=== PATIENT | female | born 1955 | race African-American/Black ===

== ENCOUNTER 2017-09-06 11:07 | Emergency (ER) | payer MEDICARE, OTHER ==
[~2017-09-06] VITALS: Ht 185.4 cm; Wt 117.9 kg
[~2017-09-06 11:07] MED LIST: ALBUTEROL SULF8.5 GM INH; ASPIR-LOW81 MG ORAL; AZITHROMYCIN250 MG PO; CRESTOR10 M1 ORAL; GABAPENTIN100 MG ORAL; IBUPROFEN600 M1 PO; IBUPROFEN600 MG ORAL; JANUVIA25 MG ORAL; LEVAQUIN750 MG ORAL; LORTAB 10-5001 EACH ORAL; LOVASTATIN10 MG PO; MACROBID 100 M100 MG PO; MACROBID100 MG ORAL; NORCO 5-325 TA1 EACH ORAL; NOVOLOG MI100 UNIT/3 SQ; PENICILLIN V P500 MG PO; TRAMADOL HCL50 MG ORAL; UNOBMED
[2017-09-06 11:28] VITALS: BP 122/63
[2017-09-06] MEDS ORDERED: Morphine Sulfate 4mg/ml Inj IVP ONE (11:45)
[2017-09-06] MEDS ORDERED: Solu-MEDROL 125mg Inj IVP ONE (11:45)
[2017-09-06] MEDS ORDERED: Albuterol ud Inhalation HHN ONE (11:45)
[2017-09-06] MEDS ORDERED: Ipratropium 0.02% Inh Soln 2.5ml UD HHN ONE (11:45)
[2017-09-06 12:09] LABS: APPEARANCE,URINE SLIGHTLY CLOUDY; BILIRUBIN, URINE NEGATIVE (NEGATIVE); GLUCOSE, URINE (UA) NEGATIVE (NEGATIVE); KETONES,URINE NEGATIVE (NEGATIVE); LEUKOCYTE ESTERASE ,URINE NEGATIVE (NEGATIVE); NITRITE,URINE NEGATIVE (NEGATIVE); PH,URINE 5 (4.5-8.0); PROTEIN,URINE NEGATIVE (NEGATIVE); UROBILINOGEN,URINE NORMAL MG/DL (0.0-1.0)
[2017-09-06 12:10] LABS: COLOR,URINE YELLOW
[2017-09-06 12:12] LABS: BASOPHILS % (AUTO) 0.9 % (0.0-2.0); EOSINOPHILS % (AUTO) 4.3 % (0.0-3.0); HEMOGLOBIN 12.6 G/DL (12.0-16.0); LYMPHOCYTES % (AUTO) 39.4 % (20.0-45.0); MEAN CORPUSCULAR VOLUME 86 FL (80-99); MONOCYTES % (AUTO) 8.2 % (1.0-10.0); NEUTROPHILS % (AUTO) 47.2 % (45.0-75.0); PLATELET COUNT 283 K/UL (150-450); RED BLOOD COUNT 4.17 M/UL (4.20-5.40); RED CELL DISTRIBUTION WIDTH 12.5 % (11.6-14.8); WHITE BLOOD COUNT 6.4 K/UL (4.8-10.8)
[2017-09-06 12:20] LABS: INR 0.9 (0.9-1.1)
[2017-09-06 12:25] LABS: ANION GAP 9 mmol/L (5-15); BLOOD UREA NITROGEN 13 mg/dL (7-18); CARBON DIOXIDE 26 MMOL/L (21-32); CHLORIDE 104 MMOL/L (98-107); CREATININE 0.9 MG/DL (0.55-1.30); POTASSIUM 3.9 MMOL/L (3.5-5.1); SODIUM 139 MMOL/L (136-145)
[2017-09-06 12:35] LABS: ALANINE AMINOTRANSFERASE 25 U/L (12-78); ALBUMIN 4.2 G/DL (3.4-5.0); ALBUMIN/GLOBULIN RATIO 1.3 (1.0-2.7); ALKALINE PHOSPHATASE 70 U/L (46-116); ASPARTATE AMINO TRANSFERASE 23 U/L (15-37); BILIRUBIN,TOTAL 0.5 MG/DL (0.2-1.0); CREATINE KINASE 306 U/L (26-308)
[2017-09-06 14:13] VITALS: BP 121/62
--- NOTE | 2017-09-06 14:25 | Diagnostic Imaging Report ---
Indication: Chest pain Technique: One view of the chest Comparison: To 03/21/2015 Findings: Lungs and pleural spaces are clear. Heart size is upper limits normal. No significant interim change Impression: No acute process
--- NOTE | 2017-09-06 14:30 | Emergency Room Report ---
History of Present Illness General Chief Complaint: Chest Pain Source: Patient Present Illness HPI Patient with URI for several weeks. Got better initially (no antibiotics), now worsened with sore throat. Daughter with strep throat. She has been wheezing and does not have inhaler. Feverish and some chills but no documented temp. Some pleuritic chest pain with cough. Some yellow phlegm. Some loose stools, denies abdominal pain or dysuria. No rashes. Pain in chest /10, pleuritic and not radiating. Not exertional, but some BAKER with wheezing. Diabetic. States sugars controlled. Allergies: Coded Allergies: No Known Allergies (Verified , 06/06/11) Patient History Past Medical History: see triage record Social History: Denies: smoking Social History Narrative with daughter Last Menstrual Period: 3 years ago Now: No Reviewed Nursing Documentation: PMH: Agreed, PSxH: Agreed Nursing Documentation-PMH Past Medical History: No History, Except For Hx Cardiac Problems: Yes - HYPERCHOLESTEROLEMIA Hx Hypertension: Yes - high cholesterol Hx Diabetes: Yes - neuropathy Hx Cancer: No Hx Gastrointestinal Problems: No Hx Neurological Problems: Yes - BLE Neuropathy Hx Cerebrovascular Accident: No Hx Transient Ischemic Attacks: No Hx Dementia: No Hx Alzheimer's Disease: No Hx Parkinson's Disease: No Hx Meningitis: No Hx Encephalitis: No Hx Seizures: No Hx Epilepsy: No Hx Multiple Sclerosis: No Hx Cerebral Palsy: No Hx Amyotrophic Lat Sclerosis: No Hx Guillian-Bridgeton Syndrome: No Hx Paralysis: No Hx Peripheral Neuropathy: Yes Hx Dizziness: Yes Hx Neurologic Surgery: No Hx Brain Shunt: No Physical Exam Vital Signs Date Time Temp Pulse Resp B/P (MAP) Pulse Ox O2 Delivery O2 Flow Rate FiO2 09/06/17 11:18 97.3 89 28 107/61 99 Room Air 09/06/17 11:45 21 Sp02 EP Interpretation: reviewed, normal General Appearance: well appearing, no apparent distress, GCS 15 Head: normocephalic Eyes: bilateral eye normal inspection ENT: moist mucus membranes, pharyngeal erythema, tonsillar exudate Neck: supple Respiratory: chest non-tender, wheezing, expiration, inspiration Cardiovascular #1: regular rate, rhythm Cardiovascular #2: 2+ radial (R) Gastrointestinal: normal inspection, normal bowel sounds, non tender, no mass, non-distended, overweight Musculoskeletal: back normal, gait/station normal, normal range of motion, no calf tenderness Neurologic: alert, oriented x3, motor strength/tone normal, DTRs symmetric, sensory intact, speech normal, grossly normal - (h/o neuropathy) Psychiatric: mood/affect normal Skin: normal inspection, warm/dry Medical Decision Making Diagnostic Impression: Primary Impression: Strep pharyngitis Additional Impressions: Bronchospasm Chest pain Qualified Codes: R07.1 - Chest pain on breathing Diabetes Qualified Codes: E11.40 - Type 2 diabetes mellitus with diabetic neuropathy, unspecified; 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 DDx: strep, pneumonia, bronchitis, bronchospasm, AMI, ACS, influenza amongst others. Needs evaluation with EKG, CXR and labs. Treated with gentle hydration, steroids, morphine and breathing treatments EKG without injury, CXR no infiltrate, WBC normal with eosinophilia. CMP normal and neg troponin. Patient improved. Started on amox for strep pharyngitis. Patient stable for outpatient observation and treatment. Laboratory Tests Test 09/06/17 11:50 White Blood Count 6.4 K/UL (4.8-10.8) Red Blood Count 4.17 M/UL (4.20-5.40) L Hemoglobin 12.6 G/DL (12.0-16.0) Hematocrit 36.0 % (37.0-47.0) L Mean Corpuscular Volume 86 FL (80-99) Mean Corpuscular Hemoglobin 30.1 PG (27.0-31.0) Mean Corpuscular Hemoglobin Concent 34.8 G/DL (32.0-36.0) Red Cell Distribution Width 12.5 % (11.6-14.8) Platelet Count 283 K/UL (150-450) Mean Platelet Volume 6.9 FL (6.5-10.1) Neutrophils (%) (Auto) 47.2 % (45.0-75.0) Lymphocytes (%) (Auto) 39.4 % (20.0-45.0) Monocytes (%) (Auto) 8.2 % (1.0-10.0) Eosinophils (%) (Auto) 4.3 % (0.0-3.0) H Basophils (%) (Auto) 0.9 % (0.0-2.0) Prothrombin Time 9.8 SEC (9.30-11.50) Prothrombin Time INR 0.9 (0.9-1.1) PTT 24 SEC (23-33) Urine Color Yellow Urine Appearance Slightly cloudy Urine pH 5 (4.5-8.0) Urine Specific [place] 1.020 (1.005-1.035) Urine Protein Negative (NEGATIVE) Urine Glucose (UA) Negative (NEGATIVE) Urine Ketones Negative (NEGATIVE) Urine Occult Blood Negative (NEGATIVE) Urine Nitrite Negative (NEGATIVE) Urine Bilirubin Negative (NEGATIVE) Urine Urobilinogen Normal MG/DL (0.0-1.0) Urine Leukocyte Esterase Negative (NEGATIVE) Urine RBC 0-2 /HPF (0 - 2) Urine WBC 0 /HPF (0 - 2) Urine Squamous Epithelial Cells Moderate /LPF (NONE/OCC) H Urine Bacteria None /HPF (NONE) Sodium Level 139 MMOL/L (136-145) Potassium Level 3.9 MMOL/L (3.5-5.1) Chloride Level 104 MMOL/L (98-107) Carbon Dioxide Level 26 MMOL/L (21-32) Anion Gap 9 mmol/L (5-15) Blood Urea Nitrogen 13 mg/dL (7-18) Creatinine 0.9 MG/DL (0.55-1.30) Estimate Glomerular Filtration Rate > 60 mL/min (>60) Glucose Level 190 MG/DL (74-106) H Calcium Level 10.0 MG/DL (8.5-10.1) Total Bilirubin 0.5 MG/DL (0.2-1.0) Aspartate Amino Transferase (AST) 23 U/L (15-37) Alanine Aminotransferase (ALT) 25 U/L (12-78) Alkaline Phosphatase 70 U/L (46-116) Total Creatine Kinase 306 U/L (26-308) Troponin I 0.000 ng/mL (0.000-0.056) Pro-B-Type Natriuretic Peptide 18 pg/mL (0-125) Total Protein 7.5 G/DL (6.4-8.2) Albumin 4.2 G/DL (3.4-5.0) Globulin 3.3 g/dL Albumin/Globulin Ratio 1.3 (1.0-2.7) Microbiology Date/Time Source Procedure Growth Status 09/06/17 12:30 Nasal Nares Influenza Types A,B Antigen (YAMILE) - Final Complete EKG Diagnostic Results Rate: normal Rhythm: NSR ST Segments: no acute changes Rhythm Strip Diag. Results EP Interpretation: yes Rhythm: NSR, no PVC's, no ectopy Chest X-Ray Diagnostic Results Chest X-Ray Diagnostic Results : Chest X-Ray Ordered: Yes # of Views/Limited/Complete: 1 View Indication: Other EP Interpretation: Yes Interpretation: no consolidation, no effusion, no pneumothorax Impression: Other Electronically Signed by: Clayton Rios MD Last Vital Signs Date Time Temp Pulse Resp B/P (MAP) Pulse Ox O2 Delivery O2 Flow Rate FiO2 09/06/17 14:59 97.8 73 13 121/62 95 Room Air 21 Status: improved Disposition: HOME, SELF-CARE Condition: Improved Scripts Albuterol Sulfate* (ALBUTEROL SULFATE MDI*) 8.5 Gm Hfa.aer.ad 2 PUFF INH Q6H, #1 EA 0 Refills Prov: Clayton Rios M.D. 09/06/17 Guaifenesin/Codeine Phos* (ROBITUSSIN AC*) 118 Ml Liquid 5 ML ORAL Q6H Y for For Cough, #90 ML 0 Refills Prov: Clayton Rios M.D. 09/06/17 Prednisone* (PREDNISONE*) 20 Mg Tablet 40 MG ORAL DAILY, #10 TAB Prov: Clayton Rios M.D. 09/06/17 Amoxicillin* (AMOXIL*) 500 Mg Capsule 500 MG ORAL THREE TIMES A DAY, #21 CAP Prov: Clayton Rios M.D. 09/06/17 Referrals: NON PHYSICIAN (PCP) Clayton Rios M.D. Sep 06, 2017 14:30
[2017-09-06] MEDS ORDERED: PREDNISONE20 MG ORAL (14:32)
[2017-09-06] MEDS ORDERED: ALBUTEROL SULF8.5 GM INH (14:32)
[2017-09-06] MEDS ORDERED: GUAIFENESIN-CO118 M1 ORAL (14:32)
[2017-09-06] MEDS ORDERED: AMOXICILLIN500 MG ORAL (14:32)
[2017-09-06 14:59] VITALS: BP 121/62
--- NOTE | 2017-09-08 17:37 | Cardiology Report ---
APPROVED REPORT EKG Measurement Heart [id number] Normal sinus rhythm Normal ECG
== END 2017-09-06 15:00 | disposition home or self-care (01) ==
LOC: EMR 11:37
DX: J02.0 Streptococcal pharyngitis (principal); J98.01 Acute bronchospasm; R07.89 Other chest pain; E11.9 Type 2 diabetes mellitus without complications; E11.40 Type 2 diabetes mellitus with diabetic neuropathy, unspecified; E78.00 Pure hypercholesterolemia, unspecified
CPT/HCPCS: 36415; 71045; 80053; 81003; 82550; 83880; 84484; 85025; 85610; 85730; 86710; 93005; 94640; 94664; 96374; 96375; 99284; J2270; J2405; J2930

== ENCOUNTER 2017-11-19 08:57 | Inpatient (IN) | payer MEDICARE, MEDICAID ==
[~2017-11-19] VITALS: Ht 185.4 cm; Wt 132.4 kg
[~2017-11-19 08:57] MED LIST changes: +AMOXICILLIN500 MG ORAL; +GUAIFENESIN-CO118 M1 ORAL; +PREDNISONE20 MG ORAL
[2017-11-19 09:09] VITALS: BP 113/74
[2017-11-19] MEDS ORDERED: Sodium Chloride 500ML 500 ML IV ONE (09:16)
--- NOTE | 2017-11-19 09:22 | Emergency Room Report ---
History of Present Illness General Chief Complaint: Abdominal Pain Source: Patient Present Illness HPI Patient present with complaints of lower abdominal pain Points mainly to the right lower abdomen Ongoing for the past 2 weeks patient has increased vomiting denies any diarrhea she feels somewhat constipated decreased bowel movements Denies any chest pain however she reports that she feels very weak Decreased energy And general malaise Denies any neck pain or photophobia denies any recent travel or trauma Allergies: Coded Allergies: No Known Allergies (Verified , 06/06/11) Patient History Past Medical History: see triage record Pertinent Family History: none Reviewed Nursing Documentation: PMH: Agreed; PSxH: Agreed Nursing Documentation-PMH Hx Cardiac Problems: Yes - HYPERCHOLESTEROLEMIA Hx Hypertension: Yes - high cholesterol Hx Diabetes: Yes - neuropathy Hx Cancer: No Hx Gastrointestinal Problems: No Hx Neurological Problems: Yes - BLE Neuropathy Hx Cerebrovascular Accident: No Hx Transient Ischemic Attacks: No Hx Dementia: No Hx Alzheimer's Disease: No Hx Parkinson's Disease: No Hx Meningitis: No Hx Encephalitis: No Hx Seizures: No Hx Epilepsy: No Hx Multiple Sclerosis: No Hx Cerebral Palsy: No Hx Amyotrophic Lat Sclerosis: No Hx Guillian-[place] Syndrome: No Hx Paralysis: No Hx Peripheral Neuropathy: Yes Hx Dizziness: Yes Hx Neurologic Surgery: No Hx Brain Shunt: No Review of Systems All Other Systems: negative except mentioned in HPI Physical Exam Vital Signs Date Time Temp Pulse Resp B/P (MAP) Pulse Ox O2 Delivery O2 Flow Rate FiO2 11/19/17 09:02 97.7 94 20 113/74 96 Room Air 97.7 Sp02 EP Interpretation: reviewed, normal General Appearance: mild distress - Appears in acute pain Head: normocephalic, atraumatic Eyes: bilateral eye PERRL, bilateral eye EOMI ENT: hearing grossly normal, normal pharynx, TMs + canals normal, uvula midline Neck: full range of motion, supple, no meningismus, no bony tend Respiratory: lungs clear, normal breath sounds, no rhonchi, no respiratory distress, no retraction, no accessory muscle use Cardiovascular #1: normal peripheral pulses, regular rate, rhythm, no edema, no gallop, no JVD, no murmur Gastrointestinal: soft, no mass, no organomegaly, non-distended, no guarding, no hernia, no pulsatile mass, no rebound, tenderness - Diffusely mid abdominal bilateral lower abdomen as well. Genitourinary: no CVA tenderness Musculoskeletal: normal inspection Neurologic: oriented x3, responsive, analysis manager III-XII nml as tested, motor strength/ tone normal, sensory intact Psychiatric: mood/affect normal Skin: normal color, no rash, warm/dry, palpation normal Lymphatic: normal inspection, no adenopathy Medical Decision Making Diagnostic Impression: Primary Impression: Abdominal pain Additional Impressions: Vomiting Intractable abdominal pain ER Course With the history exam and presentation, multiple differentials considered, including but not limited to appendicitis, gastritis, cholecystitis, diverticulitis Given the patient's history and comorbidities cardiac pathology also entertained Patient's lites lites do show some abnormalities including the kidney function CT imaging does not show any acute emergent pathology patient has done better however still remains uncomfortable and requires further inpatient care Labs Test 11/19/17 09:19 White Blood Count 6.9 K/UL (4.8-10.8) Red Blood Count 4.65 M/UL (4.20-5.40) Hemoglobin 13.7 G/DL (12.0-16.0) Hematocrit 39.2 % (37.0-47.0) Mean Corpuscular Volume 84 FL (80-99) Mean Corpuscular Hemoglobin 29.5 PG (27.0-31.0) Mean Corpuscular Hemoglobin Concent 34.9 G/DL (32.0-36.0) Red Cell Distribution Width 11.6 % (11.6-14.8) Platelet Count 460 K/UL (150-450) Mean Platelet Volume 7.0 FL (6.5-10.1) Neutrophils (%) (Auto) 55.6 % (45.0-75.0) Lymphocytes (%) (Auto) 32.1 % (20.0-45.0) Monocytes (%) (Auto) 7.0 % (1.0-10.0) Eosinophils (%) (Auto) 4.0 % (0.0-3.0) Basophils (%) (Auto) 1.3 % (0.0-2.0) Sodium Level 131 MMOL/L (136-145) Potassium Level 3.1 MMOL/L (3.5-5.1) Chloride Level 94 MMOL/L (98-107) Carbon Dioxide Level 29 MMOL/L (21-32) Anion Gap 8 mmol/L (5-15) Blood Urea Nitrogen 36 mg/dL (7-18) Creatinine 2.0 MG/DL (0.55-1.30) Estimat Glomerular Filtration Rate 30.7 mL/min (>60) Glucose Level 297 MG/DL (74-106) Calcium Level 10.1 MG/DL (8.5-10.1) Total Bilirubin 0.8 MG/DL (0.2-1.0) Aspartate Amino Transf (AST/SGOT) 23 U/L (15-37) Alanine Aminotransferase (ALT/SGPT) 21 U/L (12-78) Alkaline Phosphatase 102 U/L (46-116) Total Creatine Kinase 219 U/L (26-308) Creatine Kinase MB 0.8 NG/ML (0.0-3.6) Creatine Kinase MB Relative Index 0.3 Troponin I 0.000 ng/mL (0.000-0.056) Total Protein 8.9 G/DL (6.4-8.2) Albumin 4.0 G/DL (3.4-5.0) Globulin 4.9 g/dL Albumin/Globulin Ratio 0.8 (1.0-2.7) Lipase 87 U/L (73-393) Chest X-Ray Diagnostic Results Chest X-Ray Diagnostic Results : Chest X-Ray Ordered: Yes # of Views/Limited/Complete: 1 View Indication: Chest Pain EP Interpretation: Yes Interpretation: no consolidation, no effusion, no pneumothorax Impression: No acute disease Electronically Signed by: Freddie Britt, DO CT/MRI/US Diagnostic Results CT/MRI/US Diagnostic Results : Impression CT abdomen pelvisImpression: Limited exam without intravenous or oral contrast. Within these limitations: * No evidence of bowel obstruction or definite evidence of inflammatory change within the mesentery. * Appendix is normal. * A few scattered colonic diverticula. No evidence suggest acute diverticulitis. * Air within the urinary bladder. Correlate for history of recent bladder catheterization. If no recent bladder catheterization was performed, consider the possibility of a fistulous connection to the bladder. * Small hiatal hernia. Additional findings as above without significant interval change from the prior exam of 05/10/2015. Last Vital Signs Date Time Temp Pulse Resp B/P (MAP) Pulse Ox O2 Delivery O2 Flow Rate FiO2 11/19/17 09:09 97.7 20 113/74 96 Room Air 97.7 11/19/17 09:02 94 Status: improved Disposition: ADMITTED INPATIENT Condition: Serious Freddie Britt DO Nov 19, 2017 09:22
[2017-11-19] MEDS ORDERED: Morphine Sulfate 4mg/ml Inj IVP ONE (09:30)
[2017-11-19 09:43] LABS: BASOPHILS % (AUTO) 1.3 % (0.0-2.0); HEMATOCRIT 39.2 % (37.0-47.0); HEMOGLOBIN 13.7 G/DL (12.0-16.0); LYMPHOCYTES % (AUTO) 32.1 % (20.0-45.0); MEAN CORPUSCULAR VOLUME 84 FL (80-99); NEUTROPHILS % (AUTO) 55.6 % (45.0-75.0); PLATELET COUNT 460 K/UL (150-450); RED BLOOD COUNT 4.65 M/UL (4.20-5.40); RED CELL DISTRIBUTION WIDTH 11.6 % (11.6-14.8); WHITE BLOOD COUNT 6.9 K/UL (4.8-10.8)
[2017-11-19 10:02] LABS: ANION GAP 8 mmol/L (5-15); BLOOD UREA NITROGEN 36 mg/dL (7-18); CALCIUM 10.1 MG/DL (8.5-10.1); CARBON DIOXIDE 29 MMOL/L (21-32); CHLORIDE 94 MMOL/L (98-107); POTASSIUM 3.1 MMOL/L (3.5-5.1); SODIUM 131 MMOL/L (136-145)
[2017-11-19 10:17] LABS: ALANINE AMINOTRANSFERASE 21 U/L (12-78); ALBUMIN/GLOBULIN RATIO 0.8 (1.0-2.7); ALKALINE PHOSPHATASE 102 U/L (46-116); ASPARTATE AMINO TRANSFERASE 23 U/L (15-37); BILIRUBIN,TOTAL 0.8 MG/DL (0.2-1.0); CKMB 0.8 NG/ML (0.0-3.6); CREATINE KINASE 219 U/L (26-308)
--- NOTE | 2017-11-19 10:51 | Diagnostic Imaging Report ---
Indication: Chest pain Technique: XRAY Chest 1v Comparison: 09/06/2017 Findings: Heart size and mediastinal contours are stable compared to the prior exam. There is no focal consolidation, pneumothorax or pleural effusion. Osseous structures demonstrate no acute abnormality. Impression: No radiographic evidence of acute cardiopulmonary disease.
--- NOTE | 2017-11-19 11:26 | Diagnostic Imaging Report ---
Indication: Right lower quadrant pain Technique: CT of the abdomen and pelvis utilizing automated exposure control without intravenous or oral contrast. CT dose: Total DLP 1017 mGycm; CTDI vol 19.9 mGy Comparison: 05/10/2015 Findings: Please note that evaluation of the abdominal and pelvic viscera is limited without the use of intravenous and oral contrast. Within these limitations the following observations are made: Very mild dependent atelectasis noted in the lung bases. There is some mild scarring/atelectasis in the anterior middle lobe. Heart size appears within normal limits. No appreciable pericardial effusion. There is a small hiatal hernia. Hepatic contour is smooth. Patient again noted to be status post cholecystectomy. In the region of the samuel hepatis/gallbladder fossa there are three small soft tissue attenuation structures with rim calcification. These are stable in size and appearance compared to the prior exam of 2014. Additional, similar-appearing structure is noted adjacent to the right aspect of the uterus, also unchanged. Noncontrast evaluation of the liver, spleen, pancreas and adrenal glands is grossly unremarkable. No hydronephrosis or urinary tract stones. There is air within the bladder. Correlate for recent catheterization. If there is no history of such catheterization then consider the possibility of a stenosis connection to the bladder, most commonly vesicovaginal. There is no free intraperitoneal air. No evidence of bowel obstruction. The appendix is normal. A few scattered colonic diverticula without evidence to suggest acute diverticulitis. No definite inflammatory change in the mesentery. There are atherosclerotic gastric calcifications. The aorta is normal in caliber. There is an unchanged tubular fluid density structure along the medial aspect of the left psoas muscle. Again differential considerations include peritoneal inclusion cyst, mesenteric cyst, hydrosalpinx or other benign cystic lesions. Again, this is stable in size and appearance compared to the prior exam. No bulky/pathologically enlarged conglomerate lymphadenopathy. There are degenerative changes of the spine and bilateral hips. No acute osseous abnormality is seen. Impression: Limited exam without intravenous or oral contrast. Within these limitations: * No evidence of bowel obstruction or definite evidence of inflammatory change within the mesentery. * Appendix is normal. * A few scattered colonic diverticula. No evidence suggest acute diverticulitis. * Air within the urinary bladder. Correlate for history of recent bladder catheterization. If no recent bladder catheterization was performed, consider the possibility of a fistulous connection to the bladder. * Small hiatal hernia. Additional findings as above without significant interval change from the prior exam of 05/10/2015. The CT scanner at [facility] is accredited by the [employer] and the scans are performed using protocols designed to limit radiation exposure to as low as reasonably achievable to attain images of sufficient resolution adequate for diagnostic evaluation.
[2017-11-19 11:34] VITALS: BP 134/90
[2017-11-19 12:17] VITALS: BP 98/63
[2017-11-19 13:24] VITALS: BP 98/63
[2017-11-19] MEDS ORDERED: LOSARTAN-HCTZ1 EAC1 ORAL (13:35)
[2017-11-19] MEDS ORDERED: METFORMIN HCL500 M1 ORAL (13:35)
[2017-11-19] MEDS ORDERED: MOVANTIK12.5 MG PO (13:38)
[2017-11-19] MEDS ORDERED: DEXILANT60 MG ORAL (13:38)
[2017-11-19] MEDS ORDERED: NORCO 10-325 T1 EACH ORAL (13:39)
[2017-11-19] MEDS ORDERED: TRADJENTA5 MG PO (13:39)
[2017-11-19] MEDS ORDERED: Morphine Sulfate 2mg/ml Inj IVP PRN (15:00)
[2017-11-19] MEDS ORDERED: NovoLOG Insulin Flexpen SUBQ SCH (16:30)
[2017-11-19] MEDS ORDERED: NS w/KCl 20mEq 1,000 ML IV SCH (17:00)
--- NOTE | 2017-11-19 23:00 | History and Physical Report ---
DATE OF ADMISSION: 11/19/2017 HISTORY OF PRESENT ILLNESS: The patient presented on the floor, but left the hospital AMA because she was unwilling to wait 2 hours for the physician to visit. Even though orders were given, for pain meds and IV fluids, the patient elected to leave AMA. Efforts were made to contact the patient for followup care. Clayton Martinez M.D. DR: Brandon JOB#: [id number] CC: LUCIO
--- NOTE | 2017-11-23 13:40 | Discharge Summary ---
Discharge Summary Hospital Course Date of Admission Nov 19, 2017 at 10:00 Date of Discharge Nov 19, 2017 at 15:30 Admitting Diagnosis intractible abdominal pain HPI Cetristian Kelley is a 62 year old female who was admitted on Nov 19, 2017 at 10:00 for Intractable Abdominal Pain Hospital Course [id number] Discharge Discharge Disposition Patient was discharged to Teresa Holloway NP Nov 23, 2017 13:40
--- NOTE | 2017-11-23 19:30 | Discharge Summary 2 SIG ---
DATE OF ADMISSION: 11/19/2017 DATE OF DISCHARGE: 11/19/2017 BRIEF HOSPITAL COURSE: The patient is a 62-year-old female who presented to ED for complaints of lower abdominal pain. CT abdomen done did not show any acute emergent pathology, however, blood work showed elevated creatinine function. She was admitted for evaluation of abdominal pain and orders were placed, however, full treatment was not carried out as the patient left against medical advice. FINAL DIAGNOSES: 1. Abdominal pain. 2. Vomiting. 3. Acute kidney injury. DISPOSITION: The patient left AMA. Clayton Martinez M.D. I have been assigned to dictate discharge summary on this account and I was not involved in the patient's management. Teresa Holloway N.P. DR: PELON JOB#: [id number] CC:
== END 2017-11-19 15:30 | disposition left against medical advice (07) | DRG 684 ==
LOC: EMR 09:20 → EDBEDREQ 09:33 → 4E 10:00 → EDBEDREQ 10:44
DX: N17.9 Acute kidney failure, unspecified (principal); R10.9 Unspecified abdominal pain; E78.00 Pure hypercholesterolemia, unspecified; G62.9 Polyneuropathy, unspecified; R11.10 Vomiting, unspecified; R42 Dizziness and giddiness
CPT/HCPCS: 36415; 71045; 74176; 80053; 82550; 82553; 83690; 84484; 85025; 93005; 96374; 96375; 99284; J1815; J2405; J8499

== ENCOUNTER 2018-03-20 09:14 | Emergency (ER) | payer MEDICAID, MEDICARE ==
[~2018-03-20] VITALS: Ht 185.4 cm; Wt 127.0 kg
[~2018-03-20 09:14] MED LIST changes: +DEXILANT60 MG ORAL; +LOSARTAN-HCTZ1 EAC1 ORAL; +METFORMIN HCL500 M1 ORAL; +MOVANTIK12.5 MG PO; +NORCO 10-325 T1 EACH ORAL; +TRADJENTA5 MG PO
[2018-03-20] MEDS ORDERED: Morphine Sulfate 4mg/ml Inj (IV USE ONLY) IVP ONE (09:45)
[2018-03-20] MEDS ORDERED: Ketorolac 30mg Inj IV ONE (09:45)
[2018-03-20 10:18] VITALS: BP 131/61
[2018-03-20 10:34] LABS: APPEARANCE,URINE CLEAR; BILIRUBIN, URINE NEGATIVE (NEGATIVE); COLOR,URINE PALE YELLOW; GLUCOSE, URINE (UA) NEGATIVE (NEGATIVE); KETONES,URINE NEGATIVE (NEGATIVE); LEUKOCYTE ESTERASE ,URINE 1+ (NEGATIVE); NITRITE,URINE NEGATIVE (NEGATIVE); PH,URINE 7 (4.5-8.0); PROTEIN,URINE 1+ (NEGATIVE); UROBILINOGEN,URINE 1 MG/DL (0.0-1.0)
[2018-03-20 10:39] LABS: ANION GAP 7 mmol/L (5-15); BLOOD UREA NITROGEN 15 mg/dL (7-18); CALCIUM 9.9 MG/DL (8.5-10.1); CARBON DIOXIDE 31 MMOL/L (21-32); CHLORIDE 103 MMOL/L (98-107); POTASSIUM 3.6 MMOL/L (3.5-5.1); SODIUM 141 MMOL/L (136-145)
[2018-03-20 10:41] LABS: BASOPHILS % (AUTO) 1.3 % (0.0-2.0); EOSINOPHILS % (AUTO) 4.8 % (0.0-3.0); HEMATOCRIT 32.8 % (37.0-47.0); HEMOGLOBIN 11.4 G/DL (12.0-16.0); LYMPHOCYTES % (AUTO) 37.9 % (20.0-45.0); MEAN CORPUSCULAR VOLUME 86 FL (80-99); MONOCYTES % (AUTO) 6.8 % (1.0-10.0); NEUTROPHILS % (AUTO) 49.2 % (45.0-75.0); PLATELET COUNT 287 K/UL (150-450); RED CELL DISTRIBUTION WIDTH 12.7 % (11.6-14.8); WHITE BLOOD COUNT 6.3 K/UL (4.8-10.8)
[2018-03-20 10:45] LABS: ALANINE AMINOTRANSFERASE 50 U/L (12-78); ALBUMIN 3.9 G/DL (3.4-5.0); ALBUMIN/GLOBULIN RATIO 0.9 (1.0-2.7); ALKALINE PHOSPHATASE 107 U/L (46-116); ASPARTATE AMINO TRANSFERASE 25 U/L (15-37); BILIRUBIN,TOTAL 0.4 MG/DL (0.2-1.0); CREATINE KINASE 207 U/L (26-308)
[2018-03-20 10:46] LABS: INR 0.9 (0.9-1.1)
[2018-03-20 11:03] VITALS: BP 116/79
[2018-03-20 12:53] VITALS: BP 121/79
[2018-03-20] MEDS ORDERED: oxyCODONE HCL/Acetaminophen 5/325mg ORAL ONE (13:15)
--- NOTE | 2018-03-20 13:19 | Emergency Room Report ---
History of Present Illness General Chief Complaint: Pain Source: Patient Present Illness HPI Patient presents with bilateral foot and leg swelling which has been fairly constant for 2 weeks. She has been evaluated by her doctor for this. He performed ultrasound which ruled out blood clot. Xrays were taken which revealed arthritis. She is taking Bumex, however states not increased urine output much. No prior evaluation for gout. She states the pain is 8/10, constant and has kept her awake the last 2 nights. She has tried taking [place], but this has not controlled the pain. Her doctor is on medical leave. She has had some dyspnea on exertion and some fleeting chest pains. These are much less than the knee and lower leg pain. No fevers, chills, productive cough. She has chronic knee pain and neuropathy pain in her legs. She takes gabapentin. No calf pain, hemoptysis. No rashes, dysuria, change in bowels. Recent treatment for UTI. She is diabetic and sugars have been fairly well controlled. Allergies: Coded Allergies: No Known Allergies (Verified , 06/06/11) Patient History Past Medical History: see triage record Past Surgical History: alberto Social History: Denies: smoking Social History Narrative with daughter Last Menstrual Period: menopause Reviewed Nursing Documentation: PMH: Agreed; PSxH: Agreed Nursing Documentation-PMH Past Medical History: No Stated History Hx Cardiac Problems: No Hx Hypertension: Yes - high cholesterol Hx Diabetes: Yes - neuropathy Hx Cancer: No Hx Gastrointestinal Problems: Yes Hx Neurological Problems: Yes Hx Cerebrovascular Accident: No Hx Transient Ischemic Attacks: No Hx Dementia: No Hx Alzheimer's Disease: No Hx Parkinson's Disease: No Hx Meningitis: No Hx Encephalitis: No Hx Seizures: No Hx Epilepsy: No Hx Multiple Sclerosis: No Hx Cerebral Palsy: No Hx Amyotrophic Lat Sclerosis: No Hx Guillian-[place] Syndrome: No Hx Paralysis: No Hx Peripheral Neuropathy: Yes - BLE Hx Dizziness: Yes Hx Neurologic Surgery: No Hx Brain Shunt: No Review of Systems All Other Systems: negative except mentioned in HPI Physical Exam Vital Signs Date Time Temp Pulse Resp B/P (MAP) Pulse Ox O2 Delivery O2 Flow Rate FiO2 03/20/18 09:18 97.8 84 18 120/67 99 Room Air 97.9 Sp02 EP Interpretation: reviewed, normal General Appearance: well appearing, no apparent distress, GCS 15, obese Head: normocephalic, atraumatic Eyes: bilateral eye normal inspection, bilateral eye PERRL ENT: moist mucus membranes Neck: supple Respiratory: lungs clear, normal breath sounds Cardiovascular #1: regular rate, rhythm Cardiovascular #2: 2+ radial (R) Gastrointestinal: normal inspection, normal bowel sounds, non tender, no mass, non-distended Musculoskeletal: back normal, normal range of motion, no calf tenderness, Barbara 's Sign negative, tender - knees with DJD Neurologic: alert, oriented x3, motor strength/tone normal, DTRs symmetric, normal gait - with limp Psychiatric: mood/affect normal Skin: normal inspection, warm/dry Medical Decision Making Diagnostic Impression: Primary Impression: Osteoarthritis Qualified Codes: M17.4 - Other bilateral secondary osteoarthritis of knee Additional Impressions: Edema Qualified Codes: R60.9 - Edema, unspecified Elevated sedimentation rate ER Course Patient presents with bilateral leg pain and edema. Ddx: DVT, arthritis, osteoarthritis, CHF, diabetic neuropathy, opiate dependence/tolerance amongst others. No evidence of cellulitis or other infection at this time. Recent negative ultrasound and exam makes DVT less likely. Needs eval with labs. Recent xrays preclude studies today. Chest symptoms atypical for CAD. VS against PE. Treatment with toradol and morphine. Consideration for lasix. EKG without injury. Labs with normal WBC, slight anemia, elevated ESR. Glucose min elevated. UA with some blood. BNP normal. Patient pain controlled in ED. Improved. Still with pain and percocet given. No medical emergency at this time. Discussed need for follow up. Has had lasix in past which had helped decrease edema. Never with T.E.Alex hose. Patient stable for outpatient observation and treatment. Laboratory Tests Test 03/20/18 10:08 White Blood Count 6.3 K/UL (4.8-10.8) Red Blood Count 3.80 M/UL (4.20-5.40) L Hemoglobin 11.4 G/DL (12.0-16.0) L Hematocrit 32.8 % (37.0-47.0) L Mean Corpuscular Volume 86 FL (80-99) Mean Corpuscular Hemoglobin 29.9 PG (27.0-31.0) Mean Corpuscular Hemoglobin Concent 34.7 G/DL (32.0-36.0) Red Cell Distribution Width 12.7 % (11.6-14.8) Platelet Count 287 K/UL (150-450) Mean Platelet Volume 6.7 FL (6.5-10.1) Neutrophils (%) (Auto) 49.2 % (45.0-75.0) Lymphocytes (%) (Auto) 37.9 % (20.0-45.0) Monocytes (%) (Auto) 6.8 % (1.0-10.0) Eosinophils (%) (Auto) 4.8 % (0.0-3.0) H Basophils (%) (Auto) 1.3 % (0.0-2.0) Erythrocyte Sedimentation Rate 49 MM/HR (0-30) H Prothrombin Time 10.0 SEC (9.30-11.50) Prothrombin Time INR 0.9 (0.9-1.1) PTT 25 SEC (23-33) Urine Color Pale yellow Urine Appearance Clear Urine pH 7 (4.5-8.0) Urine Specific [place] 1.010 (1.005-1.035) Urine Protein 1+ (NEGATIVE) H Urine Glucose (UA) Negative (NEGATIVE) Urine Ketones Negative (NEGATIVE) Urine Occult Blood 5+ (NEGATIVE) H Urine Nitrite Negative (NEGATIVE) Urine Bilirubin Negative (NEGATIVE) Urine Urobilinogen 1 MG/DL (0.0-1.0) H Urine Leukocyte Esterase 1+ (NEGATIVE) H Urine RBC 30-40 /HPF (0 - 2) H Urine WBC 2-4 /HPF (0 - 2) Urine Squamous Epithelial Cells Few /LPF (NONE/OCC) Urine Bacteria Few /HPF (NONE) Sodium Level 141 MMOL/L (136-145) Potassium Level 3.6 MMOL/L (3.5-5.1) Chloride Level 103 MMOL/L (98-107) Carbon Dioxide Level 31 MMOL/L (21-32) Anion Gap 7 mmol/L (5-15) Blood Urea Nitrogen 15 mg/dL (7-18) Creatinine 1.0 MG/DL (0.55-1.30) Estimate Glomerular Filtration Rate > 60 mL/min (>60) Glucose Level 166 MG/DL (74-106) H Uric Acid 4.5 MG/DL (2.6-7.2) Calcium Level 9.9 MG/DL (8.5-10.1) Total Bilirubin 0.4 MG/DL (0.2-1.0) Aspartate Amino Transferase (AST) 25 U/L (15-37) Alanine Aminotransferase (ALT) 50 U/L (12-78) Alkaline Phosphatase 107 U/L (46-116) Total Creatine Kinase 207 U/L (26-308) Pro-B-Type Natriuretic Peptide 79 pg/mL (0-125) Total Protein 8.1 G/DL (6.4-8.2) Albumin 3.9 G/DL (3.4-5.0) Globulin 4.2 g/dL Albumin/Globulin Ratio 0.9 (1.0-2.7) L Last Vital Signs Date Time Temp Pulse Resp B/P (MAP) Pulse Ox O2 Delivery O2 Flow Rate FiO2 03/20/18 13:30 98.3 72 16 134/82 100 Room Air 208.4 Status: improved Disposition: HOME, SELF-CARE Condition: Improved Scripts Comp.stocking,Thigh,Short,Lrg (T.E.D. ANTI-EMBOLISM STOCKING) 1 Each Each EACH MC, #1 3 Refills Prov: Clayton Rios M.D. 03/20/18 Oxycodone/Acetaminophen 5-325* (PERCOCET 5-325 MG TABLET*) 1 Each Tablet 1 TAB ORAL Q6H PRN for For Pain, #6 TAB Prov: Clayton Rios M.D. 03/20/18 Referrals: NON PHYSICIAN (PCP) Clayton Rios M.D. Mar 20, 2018 13:19
[2018-03-20] MEDS ORDERED: T.E.D. ANTI-EM1 EA10 MC (13:26)
[2018-03-20] MEDS ORDERED: PERCOCET 5-3251 EACH ORAL (13:26)
[2018-03-20 13:30] VITALS: BP 134/82
== END 2018-03-20 13:42 | disposition home or self-care (01) ==
LOC: EMR 09:42
DX: M17.0 Bilateral primary osteoarthritis of knee (principal); R60.0 Localized edema; M25.572 Pain in left ankle and joints of left foot; M25.571 Pain in right ankle and joints of right foot; Z78.0 Asymptomatic menopausal state
CPT/HCPCS: 36415; 80053; 81003; 82550; 83880; 84550; 85025; 85610; 85651; 85730; 96374; 96375; 99284; J1885; J2270; J2405

== ENCOUNTER 2018-04-05 23:27 | Inpatient (IN) | payer MEDICARE, MEDICAID ==
[~2018-04-05] VITALS: Ht 185.4 cm; Wt 127.9 kg
[~2018-04-05 23:27] MED LIST changes: +PERCOCET 5-3251 EACH ORAL; +T.E.D. ANTI-EM1 EA10 MC
--- NOTE | 2018-04-06 00:27 | Emergency Room Report ---
History of Present Illness General Chief Complaint: Edema Source: Patient Present Illness HPI Patient presents with worsened edema and knee pain. It's worse on the right side than the left. She also has bilateral knee pain. She also feels a bump that's on her right anterior knee. She is complaining about pain in her calfs. In the past she's had a studies where DVT was excluded. Her doctor talked about placing her on Lasix. She's also had some dyspnea on exertion. She's been taking Lortabs at home and they have not helped. The pain is severe in the knee and wakes her up. There are waves of pain and she is jolted by the pain. She was able to ambulate with difficulty. She denies any trauma. There are no fever or chills. She also bought capasin cream placed on her knee without help. She is also on Gabapentin. She has some BAKER and hears herself wheezing. Not on inhaler. Not smoking. She was evaluated here. Dx was osteoarthritis. Patient's been seen here in the past with abdominal pain. She's had admissions for intractable abdominal pain. CT the abdomen done in October was essentially unremarkable. Her abdomen is been quiescent. She denies any nausea vomiting or diarrhea. She also denies dysuria. She is a diabetic and takes oral meds and insulin. Allergies: Coded Allergies: No Known Allergies (Verified , 06/06/11) Patient History Past Medical History: see triage record Social History: Denies: smoking Social History Narrative from home Reviewed Nursing Documentation: PMH: Agreed; PSxH: Agreed Nursing Documentation-PM Past Medical History: No History, Except For Hx Cardiac Problems: No Hx Hypertension: Yes - high cholesterol Hx Diabetes: Yes - neuropathy Hx Cancer: No Hx Gastrointestinal Problems: Yes Hx Neurological Problems: Yes Hx Cerebrovascular Accident: No Hx Transient Ischemic Attacks: No Hx Dementia: No Hx Alzheimer's Disease: No Hx Parkinson's Disease: No Hx Meningitis: No Hx Encephalitis: No Hx Seizures: No Hx Epilepsy: No Hx Multiple Sclerosis: No Hx Cerebral Palsy: No Hx Amyotrophic Lat Sclerosis: No Hx Guillian-[place] Syndrome: No Hx Paralysis: No Hx Peripheral Neuropathy: Yes - BLE Hx Dizziness: Yes Hx Neurologic Surgery: No Hx Brain Shunt: No Review of Systems All Other Systems: negative except mentioned in HPI Physical Exam Vital Signs Date Time Temp Pulse Resp B/P (MAP) Pulse Ox O2 Delivery O2 Flow Rate FiO2 04/06/18 00:07 99 20 120/68 98 Room Air Sp02 EP Interpretation: reviewed, normal General Appearance: well appearing, no apparent distress, GCS 15, obese Head: normocephalic, atraumatic Eyes: bilateral eye normal inspection, bilateral eye PERRL ENT: moist mucus membranes Neck: supple Respiratory: lungs clear, normal breath sounds Cardiovascular #1: regular rate, rhythm Cardiovascular #2: 2+ radial (R) Gastrointestinal: normal inspection, normal bowel sounds, non tender, no mass, non-distended Musculoskeletal: back normal, no calf tenderness, decreased range of motion - flexion of R knee, other - walks with limp Neurologic: alert, oriented x3, motor strength/tone normal, sensory intact, speech normal Psychiatric: depressed affect Skin: normal inspection, warm/dry Medical Decision Making Diagnostic Impression: Primary Impression: Edema Qualified Codes: R60.9 - Edema, unspecified Additional Impressions: intractable knee pain Chondrocalcinosis Hypoglycemia Bronchospasm ER Course Patient presents with bilateral leg edema worsening on the right with severe knee pain. Differential includes DVT, CHF, cellulitis, osteoarthritis, exacerbation of chronic pain amongst others. Exam is less likely for DVT. Also she is a risk for gout. Evaluation will be with EKG, chest x-ray and labs. She'll be treated with nitroglycerin ointment and Lasix. In addition as she is going to receive a dose of morphine and Zofran. Will give breathing treatment. Very complex patient. EKG without injury. Labs with normal white count and uric acid. Glucose low. D50W given. Morphine repeated. Still with pain. Colchicine given. Pain still severe. Admit med. Contacted Dr. Martinez and Dr. Benson. Morphine repeated. Laboratory Tests Test 04/06/18 00:58 04/06/18 01:50 White Blood Count 6.7 K/UL (4.8-10.8) Red Blood Count 4.15 M/UL (4.20-5.40) L Hemoglobin 11.7 G/DL (12.0-16.0) L Hematocrit 35.0 % (37.0-47.0) L Mean Corpuscular Volume 84 FL (80-99) Mean Corpuscular Hemoglobin 28.2 PG (27.0-31.0) Mean Corpuscular Hemoglobin Concent 33.5 G/DL (32.0-36.0) Red Cell Distribution Width 12.4 % (11.6-14.8) Platelet Count 330 K/UL (150-450) Mean Platelet Volume 6.9 FL (6.5-10.1) Neutrophils (%) (Auto) 48.2 % (45.0-75.0) Lymphocytes (%) (Auto) 40.7 % (20.0-45.0) Monocytes (%) (Auto) 5.6 % (1.0-10.0) Eosinophils (%) (Auto) 4.2 % (0.0-3.0) H Basophils (%) (Auto) 1.4 % (0.0-2.0) Prothrombin Time 10.0 SEC (9.30-11.50) Prothrombin Time INR 0.9 (0.9-1.1) PTT 25 SEC (23-33) Sodium Level 141 MMOL/L (136-145) Potassium Level 3.4 MMOL/L (3.5-5.1) L Chloride Level 104 MMOL/L (98-107) Carbon Dioxide Level 30 MMOL/L (21-32) Anion Gap 7 mmol/L (5-15) Blood Urea Nitrogen 20 mg/dL (7-18) H Creatinine 1.1 MG/DL (0.55-1.30) Estimate Glomerular Filtration Rate > 60 mL/min (>60) Glucose Level 55 MG/DL (74-106) L Uric Acid 4.4 MG/DL (2.6-7.2) Calcium Level 10.1 MG/DL (8.5-10.1) Total Bilirubin 0.5 MG/DL (0.2-1.0) Aspartate Amino Transferase (AST) 21 U/L (15-37) Alanine Aminotransferase (ALT) 27 U/L (12-78) Alkaline Phosphatase 96 U/L (46-116) Total Creatine Kinase 383 U/L (26-308) H Troponin I 0.000 ng/mL (0.000-0.056) Pro-B-Type Natriuretic Peptide 82 pg/mL (0-125) Total Protein 8.6 G/DL (6.4-8.2) H Albumin 4.4 G/DL (3.4-5.0) Globulin 4.2 g/dL Albumin/Globulin Ratio 1.0 (1.0-2.7) Urine Color Pale yellow Urine Appearance Clear Urine pH 5 (4.5-8.0) Urine Specific [place] 1.010 (1.005-1.035) Urine Protein Negative (NEGATIVE) Urine Glucose (UA) Negative (NEGATIVE) Urine Ketones Negative (NEGATIVE) Urine Blood 1+ (NEGATIVE) H Urine Nitrite Negative (NEGATIVE) Urine Bilirubin Negative (NEGATIVE) Urine Urobilinogen Normal MG/DL (0.0-1.0) Urine Leukocyte Esterase Negative (NEGATIVE) Urine RBC 0-2 /HPF (0 - 2) Urine WBC 0-2 /HPF (0 - 2) Urine Squamous Epithelial Cells Few /LPF (NONE/OCC) Urine Bacteria None /HPF (NONE) Urine Opiates Screen Negative (NEGATIVE) Urine Barbiturates Screen Negative (NEGATIVE) Phencyclidine (PCP) Screen Negative (NEGATIVE) Urine Amphetamines Screen Negative (NEGATIVE) Urine Benzodiazepines Screen Negative (NEGATIVE) Urine Cocaine Screen Negative (NEGATIVE) Urine Marijuana (THC) Screen Negative (NEGATIVE) EKG Diagnostic Results Rate: normal Rhythm: NSR ST Segments: no acute changes Rhythm Strip Diag. Results EP Interpretation: yes Rhythm: NSR, no PVC's, no ectopy Chest X-Ray Diagnostic Results Chest X-Ray Diagnostic Results : Chest X-Ray Ordered: Yes # of Views/Limited/Complete: 1 View Indication: Other EP Interpretation: Yes Interpretation: no consolidation, no effusion, no pneumothorax Impression: No acute disease Electronically Signed by: Electronically signed by Clayton Rios MD Other X-Ray Diagnostic Results Other X-Ray Diagnostic Results : X-Ray ordered: R knee # of Views/Limited Vs Complete: 3 View Indication: Other EP Interpretation: Yes Interpretation: no dislocation, no fractures, other - STS, Effusion, chondrocalcinosis Impression: Other Electronically Signed by: Clayton Rios MD Last Vital Signs Date Time Temp Pulse Resp B/P (MAP) Pulse Ox O2 Delivery O2 Flow Rate FiO2 04/06/18 03:38 93 19 Room Air 04/06/18 01:14 100 21 04/06/18 01:12 119/95 04/06/18 01:02 98.0 98.0 Status: improved Disposition: ADMITTED INPATIENT Condition: Serious Clayton Rios M.D. Apr 06, 2018 00:27
[2018-04-06] MEDS ORDERED: Ipratropium 0.02% Inh Soln 2.5ml UD HHN ONE (00:30)
[2018-04-06] MEDS ORDERED: Morphine Sulfate 4mg/ml Inj (IV USE ONLY) IVP ONE ×3 (00:30→06:00)
[2018-04-06] MEDS ORDERED: Albuterol ud Inhalation HHN ONE (00:30)
[2018-04-06] MEDS ORDERED: Nitroglycerin 2% oint pkt TOPIC ONE (00:30)
[2018-04-06 01:02] VITALS: BP 119/95
[2018-04-06 01:22] LABS: BASOPHILS % (AUTO) 1.4 % (0.0-2.0); EOSINOPHILS % (AUTO) 4.2 % (0.0-3.0); HEMOGLOBIN 11.7 G/DL (12.0-16.0); LYMPHOCYTES % (AUTO) 40.7 % (20.0-45.0); MEAN CORPUSCULAR VOLUME 84 FL (80-99); MONOCYTES % (AUTO) 5.6 % (1.0-10.0); NEUTROPHILS % (AUTO) 48.2 % (45.0-75.0); PLATELET COUNT 330 K/UL (150-450); RED BLOOD COUNT 4.15 M/UL (4.20-5.40); RED CELL DISTRIBUTION WIDTH 12.4 % (11.6-14.8); WHITE BLOOD COUNT 6.7 K/UL (4.8-10.8)
[2018-04-06 01:27] LABS: ANION GAP 7 mmol/L (5-15); BLOOD UREA NITROGEN 20 mg/dL (7-18); CALCIUM 10.1 MG/DL (8.5-10.1); CARBON DIOXIDE 30 MMOL/L (21-32); CHLORIDE 104 MMOL/L (98-107); CREATININE 1.1 MG/DL (0.55-1.30); POTASSIUM 3.4 MMOL/L (3.5-5.1); SODIUM 141 MMOL/L (136-145)
[2018-04-06 01:34] LABS: INR 0.9 (0.9-1.1)
[2018-04-06 01:38] LABS: ALANINE AMINOTRANSFERASE 27 U/L (12-78); ALBUMIN 4.4 G/DL (3.4-5.0); ALKALINE PHOSPHATASE 96 U/L (46-116); ASPARTATE AMINO TRANSFERASE 21 U/L (15-37); BILIRUBIN,TOTAL 0.5 MG/DL (0.2-1.0); CREATINE KINASE 383 U/L (26-308)
[2018-04-06 02:38] LABS: APPEARANCE,URINE CLEAR; BILIRUBIN, URINE NEGATIVE (NEGATIVE); COLOR,URINE PALE YELLOW; GLUCOSE, URINE (UA) NEGATIVE (NEGATIVE); KETONES,URINE NEGATIVE (NEGATIVE); LEUKOCYTE ESTERASE ,URINE NEGATIVE (NEGATIVE); NITRITE,URINE NEGATIVE (NEGATIVE); PH,URINE 5 (4.5-8.0); PROTEIN,URINE NEGATIVE (NEGATIVE); UROBILINOGEN,URINE NORMAL MG/DL (0.0-1.0)
[2018-04-06 03:00] VITALS: BP 129/73
[2018-04-06 06:56] VITALS: BP 121/67
[2018-04-06 08:00] VITALS: BP 128/72
--- NOTE | 2018-04-06 09:05 | Diagnostic Imaging Report ---
Indications: Knee pain Technique: Three views of the right knee Comparison: None Findings: No acute fractures. No dislocations. Joint spaces are preserved. No radiopaque foreign body. Normal mineralization. Unusual linear soft tissue calcification projects anterior to the distal femur, uncertain significance. There is lateral meniscal and medial meniscal chondrocalcinosis. Impression: No acute process Lateral and medial meniscal chondrocalcinosis Unusual linear soft tissue calcification anterior to the distal femur, significance uncertain
--- NOTE | 2018-04-06 09:09 | Diagnostic Imaging Report ---
Indication: Dyspnea Technique: One view of the chest Comparison: 11/19/2017 Findings: Lungs and pleural spaces are clear. The heart is borderline enlarged . No significant interim change Impression: No acute process
[2018-04-06] MEDS ORDERED: Losartan 50mg tab ORAL SCH (11:09)
[2018-04-06] MEDS: traMADol 50mg tab ORAL PRN ×2 (11:31→17:54)
[2018-04-06] MEDS ORDERED: Aspirin Baby 81mg NG SCH (12:00)
[2018-04-06] MEDS: NovoLOG Insulin Flexpen SUBQ SCH ×2 (12:25→17:06)
[2018-04-06 12:55] VITALS: BP 109/54
--- NOTE | 2018-04-06 15:47 | Cardiology Report ---
APPROVED REPORT EKG Measurement Heart [id number] Normal sinus rhythm Low voltage QRS Borderline ECG
[2018-04-06 16:14] VITALS: BP 106/55
[2018-04-06] MEDS ORDERED: metFORMIN 500mg tab ORAL SCH (18:00)
[2018-04-06] MEDS ORDERED: Heparin 5000 units/ml inj SUBQ SCH (21:00)
[2018-04-06] MEDS ORDERED: Atorvastatin 20mg tab ORAL SCH (21:00)
--- NOTE | 2018-04-07 01:00 | History and Physical Report ---
DATE OF ADMISSION: 04/06/2018 REASON FOR ADMISSION: Leg swelling and pain with immobility. HISTORY OF PRESENT ILLNESS: This is an female, age 62, who states that she has had worsening pain of her right greater than left leg and associated pain in her knee and hip region. She did have some falls. She says that she felt a bump on her right knee. She notes the pain has worsened despite multiple pain medications that she takes and has been told she may need to be put on a . The patient does not have shortness of breath at rest, but does have shortness of breath with exertion. She does not feel there is any recent change, however, in her status. The patient is unable to walk without feeling severe pain and needing to sit down and rest. She has not had any fevers, chills, nausea, vomiting, or diarrhea. In the emergency room, x-rays revealed no acute fracture. PAST MEDICAL HISTORY: Includes, 1. Hyperlipidemia. 2. Hypertension. 3. Type 2 diabetes mellitus. 4. Diabetic neuropathy. MEDICATIONS: Reviewed and reconciled. ALLERGIES: None known. SOCIAL HISTORY: Denies smoking, alcohol, or substance abuse. REVIEW OF SYSTEMS: Otherwise unremarkable. PHYSICAL EXAM: VITAL SIGNS: Afebrile, blood pressure 128/68, pulse 99, and respirations 20. Oxygen saturation on room air 98%. HEENT: Conjunctivae pink. Oropharynx clear. Mucous membranes moist. NECK: Supple. No jugular venous distention. LUNGS: Clear. Chest wall with no deformity. BREASTS: Without discrete masses. CARDIAC: Regular rhythm and rate. Normal S1, S2 with a fourth heart sound. ABDOMEN: Soft and nontender. No guarding or rebound. EXTREMITIES: Reveal 1+ edema, right greater than left. Some tenderness over the prepatellar region on the right and some degenerative changes with tenderness to motion. There is no abnormality noted grossly on the hip region. Gait is not assessed. LABORATORY DATA: White count 6.7 and hemoglobin 11.7. EKG, sinus rhythm with no acute abnormalities. Chest x-ray, no acute process. Venous duplex scan negative for DVT. Sodium 141, potassium 3.4, bicarbonate 30, BUN 20, and creatinine 1.1. Albumin 4.4. IMPRESSION: 1. Bilateral knee pain. 2. Degenerative disk disease. 3. Unsteady gait. 4. Lower extremity edema, asymmetric with no signs of acute deep venous thrombosis. 5. Hypokalemia. PLAN: 1. DVT and stress ulcer prophylaxis until mobilized. 2. Pain control with limits set on narcotic analgesics. 3. Rheumatology consultation. 4. Imaging studies using MRI of the pelvis and knee. 5. Further recommendations and plan of care to follow. 6. Discussed with the patient. Clayton Martinez M.D. DR: DAVID JOB#: [id number] CC:
--- NOTE | 2018-04-07 08:39 | Diagnostic Imaging Report ---
Indication: Right knee pain Technique: MRI of the right knee was imaged in a 1.5 Cindy magnet. Pulse sequences obtained include sagittal and axial proton fast spin-echo with fat saturation. The remainder of the examination could not be completed as the patient refused to continue due to pain. Comparison: None Findings: The study is incomplete. The 3 sequences performed are limited by motion. There is evidence of moderate chondrosis involving the patellofemoral compartment especially on the lateral patellar facet which shows evidence of full-thickness absence of cartilage and some subchondral signal change consistent with grade 4 chondrosis. Mild osteophytes also present with slight lateral subluxation of the patella. There is no joint effusion. There is a tiny popliteal cyst noted posterior medial aspect of the knee. The menisci, cruciate ligaments and collateral ligamentous and other supporting structures are not adequately evaluated. IMPRESSION: Incomplete examination. Moderate patellofemoral arthrosis noted.
[2018-04-07] MEDS ORDERED: Aspirin Baby 81mg NG SCH (09:00)
--- NOTE | 2018-04-07 12:55 | Discharge Summary ---
Discharge Summary Discharge Summary _ DATE OF ADMISSION: 04/06/2018 DATE OF DISCHARGE: 04/06/2018 BRIEF HOSPITAL COURSE: Patient is a 62-year-old -[place] female, who had worsening pain of the right greater than left leg with associated pain in the knee and hip region. She had prior falls. She stated she felt a bump on the right knee. Pain had worsened despite multiple pain medications. She denied shortness of breath at rest, but has shortness of breath with exertion. Patient is unable to ambulate without feeling severe pain and needing to sit down and rest. There was no fever, chills, nausea, vomiting or diarrhea. She has medical history significant for hyperlipidemia, hypertension, diabetes type 2, and diabetic neuropathy. On evaluation at ED, vital signs were stable. Blood work was without leukocytosis. Troponin was negative. ProBNP was normal. Knee x-ray was without fractures. There was lateral and medial meniscal chondrocalcinosis. She continued to have pain. She was given morphine and colchicine. Venous duplex scan was negative for acute DVT. She was then admitted for evaluation of bilateral knee pain. She was given antihypertensives. Blood glucose was monitored and was given Glucophage and insulin sliding scale. She was given pain management. Knee MRI was ordered. Patient had incomplete study as patient refused to continue remainder of the test due to pain. There was moderate patellofemoral arthrosis noted. Full treatment was not carried out as patient left AGAINST MEDICAL ADVICE. FINAL DIAGNOSES: Bilateral knee pain Degenerative disc disease Unsteady gait Lower extremity edema, asymmetric with no signs of acute DVT Hypo-kalemia DISPOSITION: Patient left AMA I have been assigned to dictate discharge summary on this account, and I was not involved in the patient's management. Teresa Holloway NP Apr 07, 2018 12:55
--- NOTE | 2018-04-07 15:57 | Diagnostic Imaging Report ---
APPROVED REPORT CPT Code: 99704 Present Symptoms Lower Extremity Pain: Bilateral Comments: R/O DVT BILATERAL: Imaging reveals a patent deep venous system bilaterally. There is no evidence of thrombus within the femoral, popliteal or tibial segments. The greater saphenous veins are also within normal limits. Doppler indicates normal spontaneous flow within these segments.
== END 2018-04-06 19:30 | disposition left against medical advice (07) | DRG 556 ==
LOC: EMR 04-06 00:20 → 4E 04-06 06:20 → EDBEDREQ 04-06 07:09
DX: M25.562 Pain in left knee (principal); M25.561 Pain in right knee; R26.81 Unsteadiness on feet; R60.9 Edema, unspecified; E87.6 Hypokalemia; E78.5 Hyperlipidemia, unspecified; E11.40 Type 2 diabetes mellitus with diabetic neuropathy, unspecified
CPT/HCPCS: 36415; 71045; 80053; 80307; 81003; 82550; 82962; 83880; 84484; 84550; 85025; 85610; 85730; 93005; 93970; 94640; J1815; J2405

== ENCOUNTER 2018-04-29 09:46 | Emergency (ER) | payer MEDICAID, MEDICARE ==
[~2018-04-29] VITALS: Ht 185.4 cm; Wt 120.2 kg
[2018-04-29] MEDS ORDERED: AMOXICILLIN500 MG ORAL (10:05)
[2018-04-29 10:07] VITALS: BP 125/84
[2018-04-29 10:10] VITALS: BP 144/78
--- NOTE | 2018-04-29 10:32 | Emergency Room Report ---
History of Present Illness General Chief Complaint: Sore Throat Source: Patient Present Illness HPI 62-year-old female presents ED for evaluation of sore throat. Started 2 days ago. States that multiple members of the family have similar symptoms. Runny nose, congestion, sore throat. Pain is dull, 8 out of 10. Denies fevers or chills. Denies chest pain. No other aggravating relieving factors. Denies any other associated symptoms Allergies: Coded Allergies: No Known Allergies (Verified , 06/06/11) Patient History Past Medical History: HTN Past Surgical History: none Pertinent Family History: none Social History: Denies: smoking, alcohol use, drug use Now: No Immunizations: UTD Reviewed Nursing Documentation: PMH: Agreed; PSxH: Agreed Nursing Documentation-PMH Hx Cardiac Problems: Yes - htn, Hx Hypertension: Yes - high cholesterol Hx Diabetes: Yes - neuropathy Hx Cancer: No Hx Gastrointestinal Problems: Yes - OBESITY Hx Neurological Problems: No Hx Cerebrovascular Accident: No Hx Transient Ischemic Attacks: No Hx Dementia: No Hx Alzheimer's Disease: No Hx Parkinson's Disease: No Hx Meningitis: No Hx Encephalitis: No Hx Seizures: No Hx Epilepsy: No Hx Multiple Sclerosis: No Hx Cerebral Palsy: No Hx Amyotrophic Lat Sclerosis: No Hx Guillian-Waves Syndrome: No Hx Paralysis: No Hx Peripheral Neuropathy: Yes - BLE Hx Dizziness: Yes Hx Neurologic Surgery: No Hx Brain Shunt: No Review of Systems All Other Systems: negative except mentioned in HPI Physical Exam Vital Signs Date Time Temp Pulse Resp B/P (MAP) Pulse Ox O2 Delivery O2 Flow Rate FiO2 04/29/18 09:49 98.5 90 20 125/84 94 Room Air 98.4 Sp02 EP Interpretation: reviewed, normal General Appearance: no apparent distress, alert, GCS 15, non-toxic, obese Head: normocephalic Eyes: bilateral eye normal inspection, bilateral eye PERRL ENT: hearing grossly normal, no angioedema, normal voice, TMs + canals normal, pharyngeal erythema Neck: full range of motion, supple/symm/no masses Respiratory: chest non-tender, lungs clear, normal breath sounds, speaking full sentences Cardiovascular #1: normal inspection Gastrointestinal: normal inspection Rectal: deferred Genitourinary: no CVA tenderness Musculoskeletal: normal inspection Neurologic: alert, oriented x3, responsive, motor strength/tone normal, sensory intact, speech normal Psychiatric: normal inspection Skin: normal inspection Lymphatic: normal inspection Medical Decision Making Diagnostic Impression: Primary Impression: Pharyngitis Qualified Codes: J02.9 - Acute pharyngitis, unspecified ER Course Hospital Course 62-year-old female presents to ED complaining of sore throat + congestion Differential diagnoses include: URI, pharyngitis, otitis media Clinical course Patient placed on stretcher. After initial history, physical exam reveals an elderly female in no acute distress. Bilateral TM unremarkable. There is pharyngeal erythema w/o tonsillar exudates. No lymphadenopathy. Remainder physical exam unremarkable Daughter is also here for evaluation. Has evidence of strep throat. We will treat this patient as well for pharyngitis with antibiotics Diagnosis - pharyngitis Stable and discharged home with prescriptions for amoxicillin. Instructed to followup with PMD. return to ED if symptoms recur or worsen Last Vital Signs Date Time Temp Pulse Resp B/P (MAP) Pulse Ox O2 Delivery O2 Flow Rate FiO2 04/29/18 10:10 98.7 80 22 144/78 100 04/29/18 10:07 Room Air Status: improved Disposition: HOME, SELF-CARE Condition: Stable Scripts Amoxicillin* (AMOXIL*) 500 Mg Capsule 500 MG ORAL THREE TIMES A DAY, #21 CAP Prov: Frantz Sykes MD 04/29/18 Patient Instructions: Pharyngitis, Ypel-[id number]-Ttha Frantz Sykes MD Apr 29, 2018 10:31
== END 2018-04-29 10:18 | disposition home or self-care (01) ==
LOC: EMR 10:16
DX: J02.9 Acute pharyngitis, unspecified (principal); I10 Essential (primary) hypertension; E11.40 Type 2 diabetes mellitus with diabetic neuropathy, unspecified
CPT/HCPCS: 99282

== ENCOUNTER 2018-09-01 11:14 | Inpatient (IN) | payer MEDICARE, MEDICAID ==
[~2018-09-01] VITALS: Ht 185.4 cm; Wt 136.1 kg
[2018-09-01 11:16] VITALS: BP 129/74
--- NOTE | 2018-09-01 11:34 | NUR ---
ED Nurse Note:pt. came with rash cellulitis under rifgt abdominal fold and right ankle/foot swellin possible biabetic foot cellulitis, she was seen by ER MD and placed on monitor bed
--- NOTE | 2018-09-01 11:40 | Emergency Room Report ---
History of Present Illness General Chief Complaint: Skin Rash/Abscess Source: Patient Present Illness HPI 62-year-old female with history of hypertension, diabetes, high cholesterol, diabetic neuropathy, presents with three-day history of worsening right lower extremity pain and swelling and redness near her ankle, she denies any falls or injuries, she also reports that she's noticed some redness in her right groin and abdominal wall skinfold. She denies fevers, chest pain, shortness breath, internal abdominal pain, nausea, vomiting, diarrhea and is not sure whether or not she's had fevers. Allergies: Coded Allergies: No Known Allergies (Verified , 06/06/11) Patient History Past Medical History: see triage record Last Menstrual Period: n/a Now: No : 2 Para: 2 Reviewed Nursing Documentation: PMH: Agreed; PSxH: Agreed Nursing Documentation-PMH Past Medical History: No History, Except For Hx Cardiac Problems: Yes - htn, Hx Hypertension: Yes - high cholesterol Hx Diabetes: Yes - neuropathy Hx Cancer: No Hx Gastrointestinal Problems: Yes - OBESITY Hx Neurological Problems: No Hx Cerebrovascular Accident: No Hx Transient Ischemic Attacks: No Hx Dementia: No Hx Alzheimer's Disease: No Hx Parkinson's Disease: No Hx Meningitis: No Hx Encephalitis: No Hx Seizures: No Hx Epilepsy: No Hx Multiple Sclerosis: No Hx Cerebral Palsy: No Hx Amyotrophic Lat Sclerosis: No Hx Guillian-Lufkin Syndrome: No Hx Paralysis: No Hx Peripheral Neuropathy: Yes - BLE Hx Dizziness: Yes Hx Neurologic Surgery: No Hx Brain Shunt: No Review of Systems All Other Systems: negative except mentioned in HPI Physical Exam Vital Signs Date Time Temp Pulse Resp B/P (MAP) Pulse Ox O2 Delivery O2 Flow Rate FiO2 09/01/18 11:16 97.9 91 18 129/74 94 Room Air Sp02 EP Interpretation: reviewed, normal General Appearance: no apparent distress, alert, non-toxic Head: normocephalic Eyes: bilateral eye normal inspection, bilateral eye PERRL, bilateral eye EOMI ENT: normal ENT inspection, hearing grossly normal, normal pharynx, no angioedema, normal voice, moist mucus membranes Neck: normal inspection, full range of motion, supple, supple/symm/no masses Respiratory: chest non-tender, lungs clear, normal breath sounds, no rhonchi, no respiratory distress, no retraction, no accessory muscle use, chest symmetrical, palpation of chest normal Cardiovascular #1: normal peripheral pulses, regular rate, rhythm, no gallop, no JVD, no murmur Cardiovascular #2: 2+ radial (R), 2+ radial (L), 2+ femoral (R), 2+ femoral (L) , 2+ dorsalis pedis (R), 2+ dorsalis pedis (L) Gastrointestinal: normal inspection, non tender, soft, no mass, no guarding, no rebound Rectal: deferred Genitourinary: normal inspection, no CVA tenderness Musculoskeletal: back normal, gait/station normal, normal range of motion, non- tender, no calf tenderness, Barbara's Sign negative, swelling - +R ankle with diffuse edema but FROM, + erythema/warmth/tenderness, no fluctuance Neurologic: alert, responsive, principal cyber engineer III-XII nml as tested, motor strength/tone normal, sensory intact, speech normal Psychiatric: judgement/insight normal, memory normal, mood/affect normal Skin: normal color, warm/dry, normal turgor, other - R groin with erythema, no wartmth, no tenderness, +shiny and concerning for candidal skin infection Lymphatic: no adenopathy Medical Decision Making Diagnostic Impression: Primary Impression: Diabetic foot infection ER Course Patient with diabetic foot infection, given broad spectrum antibiotics, x-ray, basic labs, duplex ordered for rule out DVT, will admit pending duplex to Dr. Arboleda Other X-Ray Diagnostic Results Other X-Ray Diagnostic Results : X-Ray ordered: R foot # of Views/Limited Vs Complete: 3 View Indication: Pain EP Interpretation: Yes Interpretation: no dislocation, no fractures, other - +soft tissue swelling Impression: Other - soft tissue swelling Electronically Signed by: Francisca Rojo MD Last Vital Signs Date Time Temp Pulse Resp B/P (MAP) Pulse Ox O2 Delivery O2 Flow Rate FiO2 09/01/18 11:16 97.9 91 18 129/74 94 Room Air Disposition: ADMITTED INPATIENT FRANCISCA ROJO M.D Sep 01, 2018 11:40
[2018-09-01] MEDS ORDERED: Morphine Sulfate 4mg/ml Inj (IV/IM USE ONLY) IVP ONE (11:45)
[2018-09-01] MEDS ORDERED: [UNRECOGNIZED DRUG - OTHER] IVPB ONE (11:45)
[2018-09-01] MEDS ORDERED: VANCOMYCIN IVPB ONE (11:45)
--- NOTE | 2018-09-01 12:18 | NUR ---
ED Nurse Note: Called pharmacy [facility] and states they will mix the Vancomycin and will bring it in the ER when it's done.
[2018-09-01 12:20] LABS: APPEARANCE,URINE CLEAR; BILIRUBIN, URINE NEGATIVE (NEGATIVE); COLOR,URINE PALE YELLOW; GLUCOSE, URINE (UA) NEGATIVE (NEGATIVE); KETONES,URINE NEGATIVE (NEGATIVE); LEUKOCYTE ESTERASE ,URINE 1+ (NEGATIVE); NITRITE,URINE NEGATIVE (NEGATIVE); PH,URINE 5 (4.5-8.0); PROTEIN,URINE NEGATIVE (NEGATIVE); UROBILINOGEN,URINE NORMAL MG/DL (0.0-1.0)
--- NOTE | 2018-09-01 12:20 | NUR ---
ED Nurse Note: US staff at the bed side.
[2018-09-01 12:22] LABS: BASOPHILS % (AUTO) 1.2 % (0.0-2.0); EOSINOPHILS % (AUTO) 2.3 % (0.0-3.0); HEMATOCRIT 35.9 % (37.0-47.0); HEMOGLOBIN 12.2 G/DL (12.0-16.0); LYMPHOCYTES % (AUTO) 27.3 % (20.0-45.0); MEAN CORPUSCULAR VOLUME 87 FL (80-99); MONOCYTES % (AUTO) 5.6 % (1.0-10.0); NEUTROPHILS % (AUTO) 63.6 % (45.0-75.0); PLATELET COUNT 288 K/UL (150-450); RED BLOOD COUNT 4.13 M/UL (4.20-5.40); RED CELL DISTRIBUTION WIDTH 13.3 % (11.6-14.8); WHITE BLOOD COUNT 7.8 K/UL (4.8-10.8)
--- NOTE | 2018-09-01 12:25 | Diagnostic Imaging Report ---
Indication: Ankle pain Technique: 3 views of the right ankle Comparison: none Findings: There is diffuse edema of the distal leg and ankle. No definite acute fractures. No dislocations. The joint spaces are preserved. There is a small plantar spur. Impression: No acute bony trauma. Findings as noted
[2018-09-01 12:32] LABS: ANION GAP 8 mmol/L (5-15); BLOOD UREA NITROGEN 22 mg/dL (7-18); CALCIUM 10.1 MG/DL (8.5-10.1); CARBON DIOXIDE 29 MMOL/L (21-32); CHLORIDE 103 MMOL/L (98-107); CREATININE 1.1 MG/DL (0.55-1.30); POTASSIUM 4.5 MMOL/L (3.5-5.1); SODIUM 140 MMOL/L (136-145)
[2018-09-01 12:36] VITALS: BP 135/70
[2018-09-01 12:37] LABS: ALANINE AMINOTRANSFERASE 35 U/L (12-78); ALBUMIN/GLOBULIN RATIO 0.9 (1.0-2.7); ALKALINE PHOSPHATASE 95 U/L (46-116); ASPARTATE AMINO TRANSFERASE 35 U/L (15-37); BILIRUBIN,TOTAL 0.7 MG/DL (0.2-1.0)
--- NOTE | 2018-09-01 13:09 | NUR ---
ED Nurse Note: Socks and warm blankets provided to patient. VSS.
--- NOTE | 2018-09-01 13:25 | NUR ---
ED Nurse Note: Report given to Tan ROJAS of Med Surg unit.
--- NOTE | 2018-09-01 13:28 | NUR ---
NURSE NOTES: Received telephone report from Luz ROJAS, patient to be transferred up from the ED shortly to room 404-2.
--- NOTE | 2018-09-01 13:40 | NUR ---
NURSE NOTES: Patient transferred up from the ED, belongings list reviewed, orders have already been place in computer by MD, no distress noted, bed is locked and in lowest position, call light within reach, patient oriented to the floor, will continue to monitor.
[2018-09-01] MEDS ORDERED: Miralax 17gm pkt ORAL PRN (14:00)
[2018-09-01] MEDS ORDERED: Albuterol/Ipratropium 3ml neb HHN PRN (14:00)
[2018-09-01] MEDS ORDERED: Nitroglycerin Subl 0.4mg tab SL PRN (14:00)
[2018-09-01] MEDS ORDERED: Piperacillin/Tazobactam 3.375 GM in D5W 110 ML IV SCH (14:00)
[2018-09-01] MEDS ORDERED: HYDROcodone/Acetamin 10/325 tab ORAL PRN (14:00)
--- NOTE | 2018-09-01 14:13 | Consultation ---
History of Present Illness General Date patient seen: Sep 01, 2018 Chief Complaint: Skin Rash/Abscess Present Illness HPI 62-year-old female with Past medical history of hypertension, diabetes, high cholesterol, diabetic neuropathy, presented to ER with CC of of worsening right lower extremity pain and swelling and redness near her ankle, she denies any falls or injuries. She denies fevers, chest pain, shortness breath, internal abdominal pain, nausea, vomiting, diarrhea and is not sure whether or not she's had fevers. Allergies: Coded Allergies: No Known Allergies (Verified , 06/06/11) Medication History Scheduled Albuterol Sulfate* (Albuterol Sulfate Mdi*), 2 PUFF INH Q6H Amoxicillin* (Amoxil*), 500 MG ORAL THREE TIMES A DAY Aspirin* (Aspir-Low*), 81 MG ORAL DAILY, (Reported) Dexlansoprazole (Dexilant), 60 MG ORAL DAILY, (Reported) Gabapentin* (Gabapentin*), 800 MG ORAL TID, (Reported) Ibuprofen (Ibuprofen), 600 MG PO Q8HR Insuln Asp Prt/Insulin Aspart (Novolog Mix 70-30 Flexpen Syrn), 70 UNIT SQ ACBREAKFAST, (Reported) Insuln Asp Prt/Insulin Aspart (Novolog Mix 70-30 Flexpen Syrn), 70 UNIT SQ BEFORE DINNER, (Reported) Linagliptin (Tradjenta), 5 MG PO DAILY, (Reported) Losartan/Hydrochlorothiazide (Losartan-Hctz 100-25 Mg Tab), 1 TAB ORAL DAILY, ( Reported) Metformin Hcl* (Metformin Hcl*), 500 MG ORAL TWICE A DAY, (Reported) Rosuvastatin Calcium (Crestor), 0 ORAL BID, (Reported) Scheduled PRN Hydrocodone Bit/Acetaminophen 10-325* ([place] 10-325*), 1 TAB ORAL Q4H PRN for For Pain, (Reported) Oxycodone/Acetaminophen 5-325* (Percocet 5-325 Mg Tablet*), 1 TAB ORAL Q6H PRN for For Pain Durable Medical Equipment Comp.stocking,Thigh,Short,Lrg (T.e.d. Anti-Embolism Stocking), EACH [facility], (DME) Patient History Healthcare decision maker Resuscitation status Advanced Directive on File Past Medical/Surgical History Past Medical/Surgical History: (1) History of hypertension (2) Diabetes (3) Osteoarthritis Review of Systems Constitutional: Reports: no symptoms Eye: Reports: no symptoms ENT: Reports: no symptoms All Other Systems: negative except mentioned in HPI Physical Exam General Appearance: WD/WN Lines, tubes and drains: peripheral HEENT: normocephalic, atraumatic Neck: non-tender, normal alignment Respiratory/Chest: chest wall non-tender, lungs clear Breasts: no masses Cardiovascular/Chest: normal rate, no JVD Abdomen: non tender Genitourinary/Rectal: normal genital exam Extremities: normal range of motion Last 24 Hour Vital Signs Date Time Temp Pulse Resp B/P (MAP) Pulse Ox O2 Delivery O2 Flow Rate FiO2 09/01/18 13:25 97.9 76 19 139/80 98 Room Air 09/01/18 12:36 98.3 82 16 135/70 96 Room Air 09/01/18 11:16 97.9 91 18 129/74 94 Room Air 09/01/18 11:16 97.9 18 129/74 94 Room Air Laboratory Tests Test 09/01/18 12:05 09/01/18 12:10 Urine Color Pale yellow Urine Appearance Clear Urine pH 5 (4.5-8.0) Urine Specific [place] 1.015 (1.005-1.035) Urine Protein Negative (NEGATIVE) Urine Glucose (UA) Negative (NEGATIVE) Urine Ketones Negative (NEGATIVE) Urine Blood 1+ (NEGATIVE) H Urine Nitrite Negative (NEGATIVE) Urine Bilirubin Negative (NEGATIVE) Urine Urobilinogen Normal MG/DL (0.0-1.0) Urine Leukocyte Esterase 1+ (NEGATIVE) H Urine RBC 0-2 /HPF (0 - 2) Urine WBC 2-4 /HPF (0 - 2) Urine Squamous Epithelial Cells Moderate /LPF (NONE/OCC) H Urine Bacteria Few /HPF (NONE) White Blood Count 7.8 K/UL (4.8-10.8) Red Blood Count 4.13 M/UL (4.20-5.40) L Hemoglobin 12.2 G/DL (12.0-16.0) Hematocrit 35.9 % (37.0-47.0) L Mean Corpuscular Volume 87 FL (80-99) Mean Corpuscular Hemoglobin 29.6 PG (27.0-31.0) Mean Corpuscular Hemoglobin Concent 34.0 G/DL (32.0-36.0) Red Cell Distribution Width 13.3 % (11.6-14.8) Platelet Count 288 K/UL (150-450) Mean Platelet Volume 7.1 FL (6.5-10.1) Neutrophils (%) (Auto) 63.6 % (45.0-75.0) Lymphocytes (%) (Auto) 27.3 % (20.0-45.0) Monocytes (%) (Auto) 5.6 % (1.0-10.0) Eosinophils (%) (Auto) 2.3 % (0.0-3.0) Basophils (%) (Auto) 1.2 % (0.0-2.0) Sodium Level 140 MMOL/L (136-145) Potassium Level 4.5 MMOL/L (3.5-5.1) Chloride Level 103 MMOL/L (98-107) Carbon Dioxide Level 29 MMOL/L (21-32) Anion Gap 8 mmol/L (5-15) Blood Urea Nitrogen 22 mg/dL (7-18) H Creatinine 1.1 MG/DL (0.55-1.30) Estimat Glomerular Filtration Rate > 60 mL/min (>60) Glucose Level 126 MG/DL (74-106) H Calcium Level 10.1 MG/DL (8.5-10.1) Total Bilirubin 0.7 MG/DL (0.2-1.0) Aspartate Amino Transf (AST/SGOT) 35 U/L (15-37) Alanine Aminotransferase (ALT/SGPT) 35 U/L (12-78) Alkaline Phosphatase 95 U/L (46-116) C-Reactive Protein, Quantitative 0.7 mg/dL (0.00-0.90) Total Protein 8.3 G/DL (6.4-8.2) H Albumin 4.0 G/DL (3.4-5.0) Globulin 4.3 g/dL Albumin/Globulin Ratio 0.9 (1.0-2.7) L Height (Feet): 6 Height (Inches): 1.00 Weight (Pounds): 300 Medications Current Medications Medications (Trade) Dose Ordered Sig/Kassie Route PRN Reason Start Time Stop Time Status Last Admin Dose Admin Acetaminophen (Tylenol) 650 mg Q4H PRN ORAL fever 09/01/18 13:30 10/01/18 13:29 Acetaminophen/ Hydrocodone Bitart ([place] 10/325) 1 tab Q4H PRN ORAL Moderate Pain (Pain Scale 4-6) 09/01/18 14:00 09/08/18 13:59 Albuterol/ Ipratropium (Albuterol/ Ipratropium) 3 ml Q4H PRN HHN Shortness of Breath 09/01/18 14:00 09/06/18 13:59 Aspirin (Ecotrin) 81 mg DAILY ORAL 09/02/18 09:00 10/02/18 08:59 Cefepime HCl 2 gm/ Dextrose 110 ml @ 220 mls/hr EVERY 12 HOURS IV 09/01/18 15:00 09/08/18 14:59 Dextrose (Dextrose 50%) 25 ml STAT PRN IV Hypoglycemia 09/01/18 13:15 10/01/18 13:14 Dextrose (Dextrose 50%) 50 ml STAT PRN IV Hypoglycemia 09/01/18 14:00 10/01/18 13:59 Gabapentin (Neurontin) 800 mg TID ORAL 09/01/18 14:00 10/01/18 13:59 Heparin Sodium (Porcine) (Heparin 5000 units/ml) 5,000 units EVERY 12 HOURS SUBQ 09/01/18 21:00 10/01/18 20:59 Insulin Aspart (NovoLOG) BEFORE MEALS AND HS SUBQ 09/01/18 16:30 10/01/18 16:29 Morphine Sulfate (Morphine Sulfate) 2 mg Q4H PRN IVP Severe Pain (Pain Scale 7-10) 09/01/18 14:00 09/08/18 13:59 Nitroglycerin (Ntg) 0.4 mg Q5M PRN SL Prn Chest Pain 09/01/18 14:00 10/01/18 13:59 Ondansetron HCl (Zofran) 4 mg Q6H PRN IVP Nausea & Vomiting 09/01/18 14:00 10/01/18 13:59 Piperacillin Sod/ Tazobactam Sod 3.375 gm/Dextrose 110 ml @ 27.5 mls/hr EVERY 8 HOURS IVPB 09/01/18 22:00 09/08/18 21:59 UNV Polyethylene Glycol (Miralax) 17 gm DAILYPRN PRN ORAL Constipation 09/01/18 14:00 10/01/18 13:59 Temazepam (Restoril) 15 mg HSPRN PRN ORAL Insomnia 09/01/18 21:00 09/08/18 20:59 Vancomycin HCl/ Dextrose 250 ml @ 125 mls/hr Q12H IVPB 09/01/18 22:00 09/06/18 21:59 Assessment/Plan Problem List: (1) Cellulitis ICD Codes: L03.90 - Cellulitis, unspecified SNOMED: 817461534 (2) History of hypertension ICD Codes: Z86.79 - Personal history of other diseases of the circulatory system SNOMED: 072691269 (3) Diabetes ICD Codes: E11.9 - Type 2 diabetes mellitus without complications SNOMED: 74096005 (4) Morbid obesity ICD Codes: E66.01 - Morbid (severe) obesity due to excess calories SNOMED: 758264683 Assessment/Plan iv abx analgesics check uric acid f/u ESR symptomatic treatment Lee Delaney MD Sep 01, 2018 14:13
[2018-09-01] MEDS: Cefepime HCl 2 GM in D5W 110 ML IV SCH ×2 (15:33→20:28)
--- NOTE | 2018-09-01 15:38 | NUR ---
NURSE NOTES: RN received venous Duplex results from vascular lab, results were reported to Dr. Delaney, no new orders received at this time.
[2018-09-01 16:00] VITALS: BP 152/90
[2018-09-01] MEDS: NovoLOG Insulin Flexpen SUBQ SCH ×2 (16:47→20:35)
[2018-09-01] MEDS: Morphine Sulfate 4mg/ml Inj (IV/IM USE ONLY) IVP PRN (16:48)
--- NOTE | 2018-09-01 19:09 | History & Physical ---
History and Physical History & Physicial Dictated for Int med-Dr Arboleda no. [id number]. Tristian Sneed MD Sep 01, 2018 19:09
--- NOTE | 2018-09-01 19:23 | NUR ---
HAND-OFF: Report given to Santo ROJAS.
--- NOTE | 2018-09-01 20:00 | NUR ---
NURSE NOTES: Patient received in bed, aaox4, ambulatory with cane. IV on left AC intact and patent. Right leg swelling noted. lower abdomen redness noted. Call light and personal belongings within easy reach. Instructed to call for assistance. Will continue to monitor.
[2018-09-01 20:21] VITALS: BP 117/68
--- NOTE | 2018-09-01 20:30 | History and Physical Report ---
DATE OF ADMISSION: 09/01/2018 CHIEF COMPLAINT: The patient is a 62-year-old female, who presents with chief complaint of pain and swelling of the right ankle. HISTORY OF PRESENT ILLNESS: The patient has a history of diabetes type 2. The patient states history of present illness began approximately three days ago. The patient began to experience pain and swelling of the right ankle. The patient also noted some redness in her right groin and right abdominal wall. The patient presented to [facility]. The patient is admitted with right ankle cellulitis versus abscess and right diabetic foot ulcer. REVIEW OF SYSTEMS: CONSTITUTIONAL: The patient denies weight loss or weight gain. The patient denies fevers or chills. HEENT: The patient denies ear or throat pain. The patient denies headache. CARDIOVASCULAR: The patient denies palpitations or chest pain. CHEST: The patient denies wheeze or shortness of breath. GASTROINTESTINAL: The patient denies nausea, vomiting, diarrhea, or constipation. GENITOURINARY: The patient denies dysuria or increased frequency of urination. NEUROMUSCULAR: The patient complains of right ankle pain as above. The patient denies seizures or generalized weakness. PAST MEDICAL HISTORY: Significant for: 1. Diabetes type 2. 2. Hypertension. 3. Hypercholesterolemia. 4. Diabetic nephropathy. 5. Diabetic neuropathy. PAST SURGICAL HISTORY: The patient denies. CURRENT MEDICATIONS: 1. Albuterol metered-dose inhaler two puffs p.o. four times a day p.r.n. 2. Aspirin 81 mg p.o. daily. 3. Dexilant 60 mg p.o. daily. 4. Gabapentin 800 mg p.o. three times daily. 5. [place] 10/325 mg one tablet p.o. q.6 h. p.r.n. 6. NovoLog 70/30, 70 units subcutaneously before breakfast. 7. NovoLog 70/30, 70 units subcutaneously before dinner. 8. Tradjenta 5 mg p.o. daily. 9. Losartan/hydrochlorothiazide 100/25 mg one tablet p.o. daily. 10. Metformin 500 mg p.o. twice daily. 11. Crestor 10 mg p.o. daily. ALLERGIES: No known drug allergies. SOCIAL HISTORY: The patient is single and lives alone. The patient denies tobacco or alcohol use. PHYSICAL EXAMINATION: VITAL SIGNS: Temperature 97.9, respirations 18, pulse 91, and blood pressure 129/74. GENERAL: The patient is a well-developed and well-nourished obese female, in no apparent distress. HEENT: Eyes, pupils are equal and responsive to light and accommodation. Extraocular movements are intact. NECK: Supple without lymphadenopathy. CHEST: Lungs are clear to auscultation bilaterally without wheezes or rales. CARDIOVASCULAR: Regular rate. S1 and S2 normal without murmurs, rubs, or gallops. ABDOMEN: Soft, nontender, and nondistended. Positive bowel sounds. No evidence of hepatosplenomegaly. Currently, no rebound or guarding noted. EXTREMITIES: Negative for clubbing, cyanosis, or edema. There is swelling and erythema on the lateral right ankle. NEUROLOGICAL: Cranial nerves II to XII grossly intact without focal deficits. Motor strength is 5/5 bilaterally. Deep tendon reflexes are 2+ plantar. LABORATORY STUDIES: WBC is 7.8, hemoglobin 12.2, hematocrit 35.9, and platelets 280,000. Sodium 140, potassium 4.5, chloride 103, CO2 29, BUN 22, and creatinine 1.1. Glucose 126. An x-ray of the right ankle revealed soft tissue swelling and diffuse edema over the lateral right ankle. There were no bony lesions noted. ASSESSMENT: This is a 62-year-old female with: 1. Right ankle cellulitis. 2. Diabetes type 2. 3. Hypercholesterolemia. 4. Hypertension. 5. Diabetic neuropathy. 6. Gastroesophageal reflux disease. 7. Morbid obesity. TREATMENT: 1. Right ankle cellulitis. An Infectious Disease consultation has been obtained with Dr. Mario. The patient has been started empirically on vancomycin and cefepime. We will follow recommendations of Infectious Disease. A Podiatry consultation has been obtained with Dr. Weaver. 2. Diabetes type 2. The patient has been started on NovoLog sliding scale. 3. Hypertension. Continue losartan/hydrochlorothiazide as above. 4. Hypercholesteremia. Continue Crestor as above. 5. Diabetic neuropathy. Continue gabapentin as above. 6. Gastroesophageal reflux disease. 7. Obesity. Tristian Sneed M.D. DR: CARLITO JOB#: [id number] CC:
[2018-09-01] MEDS: Heparin 5000 units/ml inj SUBQ SCH (20:35)
[2018-09-01] MEDS ORDERED: Cefepime HCl 2 GM in D5W 110 ML IV SCH (21:00)
[2018-09-01] MEDS: Vancomycin 1500mg IVPB SCH (21:24)
[2018-09-01] MEDS ORDERED: Piperacillin/Tazobactam 3.375 GM in D5W 110 ML IVPB SCH (22:00)
[2018-09-02] VITALS: BP 130/80
[2018-09-02] MEDS ORDERED: Vancomycin 1 GM in D5W 275 ML IV SCH (00:30)
[2018-09-02] MEDS: Morphine Sulfate 4mg/ml Inj (IV/IM USE ONLY) IVP PRN (02:55)
[2018-09-02] MEDS: NovoLOG Insulin Flexpen SUBQ SCH ×4 (06:05→21:15)
--- NOTE | 2018-09-02 07:07 | NUR ---
HAND-OFF: Report given to Poly ROJAS.
--- NOTE | 2018-09-02 07:29 | NUR ---
NURSE NOTES: pt in bed with no sob nor in any form of distress noted. pt denies any pain at this time. Able to make needs. bed in lowest position. will continue to monitor.
[2018-09-02 07:42] LABS: EOSINOPHILS % (AUTO) 2.7 % (0.0-3.0); HEMATOCRIT 32.4 % (37.0-47.0); HEMOGLOBIN 11.1 G/DL (12.0-16.0); LYMPHOCYTES % (AUTO) 38.8 % (20.0-45.0); MEAN CORPUSCULAR VOLUME 88 FL (80-99); MONOCYTES % (AUTO) 4.8 % (1.0-10.0); NEUTROPHILS % (AUTO) 52.7 % (45.0-75.0); PLATELET COUNT 274 K/UL (150-450); RED BLOOD COUNT 3.69 M/UL (4.20-5.40); RED CELL DISTRIBUTION WIDTH 13.7 % (11.6-14.8)
[2018-09-02 08:00] VITALS: BP 113/63
[2018-09-02 08:01] LABS: ALANINE AMINOTRANSFERASE 41 U/L (12-78); ALBUMIN 3.7 G/DL (3.4-5.0); ALBUMIN/GLOBULIN RATIO 0.9 (1.0-2.7); ALKALINE PHOSPHATASE 90 U/L (46-116); ANION GAP 9 mmol/L (5-15); ASPARTATE AMINO TRANSFERASE 31 U/L (15-37); BILIRUBIN,TOTAL 0.5 MG/DL (0.2-1.0); BLOOD UREA NITROGEN 21 mg/dL (7-18); CALCIUM 9.8 MG/DL (8.5-10.1); CARBON DIOXIDE 29 MMOL/L (21-32); CHLORIDE 101 MMOL/L (98-107); CREATININE 1.3 MG/DL (0.55-1.30); SODIUM 139 MMOL/L (136-145)
[2018-09-02] MEDS: Cefepime HCl 2 GM in D5W 110 ML IV SCH (08:12)
[2018-09-02] MEDS: Aspirin EC 81mg tab ORAL SCH (08:12)
[2018-09-02] MEDS: Heparin 5000 units/ml inj SUBQ SCH ×2 (08:22→21:14)
[2018-09-02] MEDS: Vancomycin 1500mg IVPB SCH ×2 (11:19→21:13)
--- NOTE | 2018-09-02 11:29 | Consultation ---
History of Present Illness General Date patient seen: Sep 02, 2018 Chief Complaint: Skin Rash/Abscess Reason for Consultation: Cellulitis Present Illness HPI Ms Kelley is a 62 yo Diabetic female who presented to the ED on 09/01/18 with pain and swelling of her right foot. She says that th swelling and pain started about 4 days ago and had been getting worse. No Hx of trauma. She gomez say that most of the pain is from her peripheral neuropathy. The swelling and erythema has improved since admit. She denies fever or chills. She also reports abdominal /groin skin redness. In the ED she was afebrile and had no leukocytosis. ID consulted for DFI PMHx/PSHx DM HTN HLD SocHx No E/T/D FamHx Not contributory Allergies: Coded Allergies: No Known Allergies (Verified , 06/06/11) Medication History Scheduled Albuterol Sulfate* (Albuterol Sulfate Mdi*), 2 PUFF INH Q6H Amoxicillin* (Amoxil*), 500 MG ORAL THREE TIMES A DAY Aspirin* (Aspir-Low*), 81 MG ORAL DAILY, (Reported) Dexlansoprazole (Dexilant), 60 MG ORAL DAILY, (Reported) Gabapentin* (Gabapentin*), 800 MG ORAL TID, (Reported) Ibuprofen (Ibuprofen), 600 MG PO Q8HR Insuln Asp Prt/Insulin Aspart (Novolog Mix 70-30 Flexpen Syrn), 70 UNIT SQ ACBREAKFAST, (Reported) Insuln Asp Prt/Insulin Aspart (Novolog Mix 70-30 Flexpen Syrn), 70 UNIT SQ BEFORE DINNER, (Reported) Linagliptin (Tradjenta), 5 MG PO DAILY, (Reported) Losartan/Hydrochlorothiazide (Losartan-Hctz 100-25 Mg Tab), 1 TAB ORAL DAILY, ( Reported) Metformin Hcl* (Metformin Hcl*), 500 MG ORAL TWICE A DAY, (Reported) Rosuvastatin Calcium (Crestor), 0 ORAL BID, (Reported) Scheduled PRN Hydrocodone Bit/Acetaminophen 10-325* ([place] 10-325*), 1 TAB ORAL Q4H PRN for For Pain, (Reported) Oxycodone/Acetaminophen 5-325* (Percocet 5-325 Mg Tablet*), 1 TAB ORAL Q6H PRN for For Pain Durable Medical Equipment Comp.stocking,Thigh,Short,Lrg (T.e.d. Anti-Embolism Stocking), EACH , (DME) Patient History Healthcare decision maker Resuscitation status Advanced Directive on File Review of Systems ROS Narrative 12 point ROS negative except as note in the HPI. Physical Exam Last 24 Hour Vital Signs Date Time Temp Pulse Resp B/P (MAP) Pulse Ox O2 Delivery O2 Flow Rate FiO2 09/02/18 09:38 Room Air 09/02/18 08:00 98.0 81 18 113/63 (80) 97 09/02/18 03:25 97.7 09/02/18 00:00 97.7 83 18 130/80 (97) 95 09/01/18 21:00 Room Air 09/01/18 20:21 98.6 72 18 117/68 (84) 97 09/01/18 16:00 98.2 84 20 152/90 (110) 97 09/01/18 14:20 Room Air 09/01/18 13:25 97.9 76 19 139/80 98 Room Air 09/01/18 12:36 98.3 82 16 135/70 96 Room Air Intake and Output 09/01/18 09/02/18 19:00 07:00 Intake Total 1200 ml Balance 1200 ml Intake Oral 840 ml IV Total 360 ml # Voids 1 2 Laboratory Tests Test 09/01/18 12:05 09/01/18 12:10 09/02/18 05:44 Urine Color Pale yellow Urine Appearance Clear Urine pH 5 (4.5-8.0) Urine Specific [place] 1.015 (1.005-1.035) Urine Protein Negative (NEGATIVE) Urine Glucose (UA) Negative (NEGATIVE) Urine Ketones Negative (NEGATIVE) Urine Blood 1+ (NEGATIVE) H Urine Nitrite Negative (NEGATIVE) Urine Bilirubin Negative (NEGATIVE) Urine Urobilinogen Normal MG/DL (0.0-1.0) Urine Leukocyte Esterase 1+ (NEGATIVE) H Urine RBC 0-2 /HPF (0 - 2) Urine WBC 2-4 /HPF (0 - 2) Urine Squamous Epithelial Cells Moderate /LPF (NONE/OCC) H Urine Bacteria Few /HPF (NONE) White Blood Count 7.8 K/UL (4.8-10.8) 7.0 K/UL (4.8-10.8) Red Blood Count 4.13 M/UL (4.20-5.40) L 3.69 M/UL (4.20-5.40) L Hemoglobin 12.2 G/DL (12.0-16.0) 11.1 G/DL (12.0-16.0) L Hematocrit 35.9 % (37.0-47.0) L 32.4 % (37.0-47.0) L Mean Corpuscular Volume 87 FL (80-99) 88 FL (80-99) Mean Corpuscular Hemoglobin 29.6 PG (27.0-31.0) 30.0 PG (27.0-31.0) Mean Corpuscular Hemoglobin Concent 34.0 G/DL (32.0-36.0) 34.3 G/DL (32.0-36.0) Red Cell Distribution Width 13.3 % (11.6-14.8) 13.7 % (11.6-14.8) Platelet Count 288 K/UL (150-450) 274 K/UL (150-450) Mean Platelet Volume 7.1 FL (6.5-10.1) 6.2 FL (6.5-10.1) L Neutrophils (%) (Auto) 63.6 % (45.0-75.0) 52.7 % (45.0-75.0) Lymphocytes (%) (Auto) 27.3 % (20.0-45.0) 38.8 % (20.0-45.0) Monocytes (%) (Auto) 5.6 % (1.0-10.0) 4.8 % (1.0-10.0) Eosinophils (%) (Auto) 2.3 % (0.0-3.0) 2.7 % (0.0-3.0) Basophils (%) (Auto) 1.2 % (0.0-2.0) 1.0 % (0.0-2.0) Sodium Level 140 MMOL/L (136-145) 139 MMOL/L (136-145) Potassium Level 4.5 MMOL/L (3.5-5.1) 4.0 MMOL/L (3.5-5.1) Chloride Level 103 MMOL/L (98-107) 101 MMOL/L (98-107) Carbon Dioxide Level 29 MMOL/L (21-32) 29 MMOL/L (21-32) Anion Gap 8 mmol/L (5-15) 9 mmol/L (5-15) Blood Urea Nitrogen 22 mg/dL (7-18) H 21 mg/dL (7-18) H Creatinine 1.1 MG/DL (0.55-1.30) 1.3 MG/DL (0.55-1.30) Estimat Glomerular Filtration Rate > 60 mL/min (>60) 50.4 mL/min (>60) Glucose Level 126 MG/DL (74-106) H 244 MG/DL (74-106) #H Calcium Level 10.1 MG/DL (8.5-10.1) 9.8 MG/DL (8.5-10.1) Total Bilirubin 0.7 MG/DL (0.2-1.0) 0.5 MG/DL (0.2-1.0) Aspartate Amino Transf (AST/SGOT) 35 U/L (15-37) 31 U/L (15-37) Alanine Aminotransferase (ALT/SGPT) 35 U/L (12-78) 41 U/L (12-78) Alkaline Phosphatase 95 U/L (46-116) 90 U/L (46-116) C-Reactive Protein, Quantitative 0.7 mg/dL (0.00-0.90) Total Protein 8.3 G/DL (6.4-8.2) H 7.7 G/DL (6.4-8.2) Albumin 4.0 G/DL (3.4-5.0) 3.7 G/DL (3.4-5.0) Globulin 4.3 g/dL 4.0 g/dL Albumin/Globulin Ratio 0.9 (1.0-2.7) L 0.9 (1.0-2.7) L Height (Feet): 6 Height (Inches): 1.00 Weight (Pounds): 300 Medications Current Medications Medications (Trade) Dose Ordered Sig/Kassie Route PRN Reason Start Time Stop Time Status Last Admin Dose Admin Acetaminophen (Tylenol) 650 mg Q4H PRN ORAL fever 09/01/18 13:30 10/01/18 13:29 Acetaminophen/ Hydrocodone Bitart ([place] [address]) 1 tab Q4H PRN ORAL Moderate Pain (Pain Scale 4-6) 09/01/18 14:00 09/08/18 13:59 Albuterol/ Ipratropium (Albuterol/ Ipratropium) 3 ml Q4H PRN HHN Shortness of Breath 09/01/18 14:00 09/06/18 13:59 Aspirin (Ecotrin) 81 mg DAILY ORAL 09/02/18 09:00 10/02/18 08:59 09/02/18 08:12 Cefepime HCl 2 gm/ Dextrose 110 ml @ 220 mls/hr EVERY 12 HOURS IV 09/01/18 15:00 09/08/18 14:59 09/02/18 08:12 Dextrose (Dextrose 50%) 25 ml STAT PRN IV Hypoglycemia 09/01/18 13:15 10/01/18 13:14 Dextrose (Dextrose 50%) 50 ml STAT PRN IV Hypoglycemia 09/01/18 14:00 10/01/18 13:59 Gabapentin (Neurontin) 800 mg TID ORAL 09/02/18 09:00 10/01/18 13:59 09/02/18 08:12 Heparin Sodium (Porcine) (Heparin 5000 units/ml) 5,000 units EVERY 12 HOURS SUBQ 09/01/18 21:00 10/01/18 20:59 09/02/18 08:22 Insulin Aspart (NovoLOG) BEFORE MEALS AND HS SUBQ 09/01/18 16:30 10/01/18 16:29 09/02/18 06:05 Morphine Sulfate (Morphine Sulfate) 2 mg Q4H PRN IVP Severe Pain (Pain Scale 7-10) 09/01/18 14:00 09/08/18 13:59 09/02/18 02:55 Nitroglycerin (Ntg) 0.4 mg Q5M PRN SL Prn Chest Pain 09/01/18 14:00 10/01/18 13:59 Ondansetron HCl (Zofran) 4 mg Q6H PRN IVP Nausea & Vomiting 09/01/18 14:00 10/01/18 13:59 Polyethylene Glycol (Miralax) 17 gm DAILYPRN PRN ORAL Constipation 09/01/18 14:00 10/01/18 13:59 Temazepam (Restoril) 15 mg HSPRN PRN ORAL Insomnia 09/01/18 21:00 09/08/18 20:59 Vancomycin HCl/ Dextrose 250 ml @ 125 mls/hr Q12H IVPB 09/01/18 22:00 09/06/18 21:59 09/01/18 21:24 Objective Narrative Gen: NAD HEENT: NCAT, MMM, EOMI, PERRL, no scleral icterus, NECK: full range of motion, supple, no meningismus, No LAD, No JVD LUNGS: CTAB, No W/C, No Accessory muscle use CARDS: RRR, S1, S2, No M/R/G, ABD: Soft, Obese, NT, ND, No R/G, + BS, No HSM, No Masses, right pannus with some erythema/rash : Deferred Ext: C/C/E, Pulses 2+ B/L (DP, Rad): right ankle erythema and swelling NEURO: A/O x 4, Strength and Sensation Grossly intact PSYCH: Mood/affect normal SKIN: Warm/dry, No rashes Assessment/Plan Assessment/Plan 62 yo Diabetic female who presented to the ED on 09/01/18 with pain and swelling of her right foot. Right foot cellulitis No open ulcers No fever No leukocytosis Right groin skin candidiasis Will treat with antifungal cream DM HTN HLD PLAN - Continue Vancomycin - S/P Cefepime 09/02/18 - On D/C could finish a 5 day course of abx with Bactrim DS BID ( End date ) - Start clotrimazole cr - Monitor CBC and Temps Thank you for this consult. We will continue to follow the patient during this hospitalization. Clayton Langley MD Sep 02, 2018 11:29
[2018-09-02 12:00] VITALS: BP 134/60
--- NOTE | 2018-09-02 14:13 | Pulmonology Progress Note ---
Assessment/Plan Problems: (1) Cellulitis (2) History of hypertension (3) Diabetes (4) Morbid obesity Assessment/Plan doing better all reviewed iv abx analgesics check uric acid f/u ESR symptomatic treatment Subjective ROS Limited/Unobtainable: No Constitutional: Reports: no symptoms HEENT: Repors: no symptoms Respiratory: Reports: no symptoms Allergies: Coded Allergies: No Known Allergies (Verified , 06/06/11) Objective Last 24 Hour Vital Signs Date Time Temp Pulse Resp B/P (MAP) Pulse Ox O2 Delivery O2 Flow Rate FiO2 09/02/18 12:00 97.9 89 19 134/60 (84) 97 09/02/18 09:38 Room Air 09/02/18 08:00 98.0 81 18 113/63 (80) 97 09/02/18 03:25 97.7 09/02/18 00:00 97.7 83 18 130/80 (97) 95 09/01/18 21:00 Room Air 09/01/18 20:21 98.6 72 18 117/68 (84) 97 09/01/18 16:00 98.2 84 20 152/90 (110) 97 09/01/18 14:20 Room Air Intake and Output 09/01/18 09/02/18 19:00 07:00 Intake Total 1200 ml Balance 1200 ml Intake Oral 840 ml IV Total 360 ml # Voids 1 2 General Appearance: WD/WN HEENT: atraumatic Respiratory/Chest: chest wall non-tender, lungs clear Breasts: no masses Cardiovascular: normal peripheral pulses, normal rate Abdomen: normal bowel sounds, no organomegaly Genitourinary: normal external genitalia Extremities: no clubbing Skin: no lesions Laboratory Tests 09/02/18 05:44: White Blood Count 7.0, Red Blood Count 3.69L, Hemoglobin 11.1L, Hematocrit 32.4L , Mean Corpuscular Volume 88, Mean Corpuscular Hemoglobin 30.0, Mean Corpuscular Hemoglobin Concent 34.3, Red Cell Distribution Width 13.7, Platelet Count 274, Mean Platelet Volume 6.2L, Neutrophils (%) (Auto) 52.7, Lymphocytes ( %) (Auto) 38.8, Monocytes (%) (Auto) 4.8, Eosinophils (%) (Auto) 2.7, Basophils (%) (Auto) 1.0, Sodium Level 139, Potassium Level 4.0, Chloride Level 101, Carbon Dioxide Level 29, Anion Gap 9, Blood Urea Nitrogen 21H, Creatinine 1.3, Estimat Glomerular Filtration Rate 50.4, Glucose Level 244#H, Calcium Level 9.8 , Total Bilirubin 0.5, Aspartate Amino Transf (AST/SGOT) 31, Alanine Aminotransferase (ALT/SGPT) 41, Alkaline Phosphatase 90, Total Protein 7.7, Albumin 3.7, Globulin 4.0, Albumin/Globulin Ratio 0.9L Current Medications Medications (Trade) Dose Ordered Sig/Kassie Route PRN Reason Start Time Stop Time Status Last Admin Dose Admin Acetaminophen (Tylenol) 650 mg Q4H PRN ORAL fever 09/01/18 13:30 10/01/18 13:29 Acetaminophen/ Hydrocodone Bitart ([place] 10/325) 1 tab Q4H PRN ORAL Moderate Pain (Pain Scale 4-6) 09/01/18 14:00 09/08/18 13:59 Albuterol/ Ipratropium (Albuterol/ Ipratropium) 3 ml Q4H PRN HHN Shortness of Breath 09/01/18 14:00 09/06/18 13:59 Aspirin (Ecotrin) 81 mg DAILY ORAL 09/02/18 09:00 10/02/18 08:59 09/02/18 08:12 Clotrimazole (Lotrimin) 1 applic THREE TIMES A DAY TOPIC 09/02/18 14:00 10/02/18 13:59 09/02/18 13:13 Dextrose (Dextrose 50%) 25 ml STAT PRN IV Hypoglycemia 09/01/18 13:15 10/01/18 13:14 Dextrose (Dextrose 50%) 50 ml STAT PRN IV Hypoglycemia 09/01/18 14:00 10/01/18 13:59 Gabapentin (Neurontin) 800 mg TID ORAL 09/02/18 09:00 10/01/18 13:59 09/02/18 13:12 Heparin Sodium (Porcine) (Heparin 5000 units/ml) 5,000 units EVERY 12 HOURS SUBQ 09/01/18 21:00 10/01/18 20:59 09/02/18 08:22 Insulin Aspart (NovoLOG) BEFORE MEALS AND HS SUBQ 09/01/18 16:30 10/01/18 16:29 09/02/18 11:22 Morphine Sulfate (Morphine Sulfate) 2 mg Q4H PRN IVP Severe Pain (Pain Scale 7-10) 09/01/18 14:00 09/08/18 13:59 09/02/18 02:55 Nitroglycerin (Ntg) 0.4 mg Q5M PRN SL Prn Chest Pain 09/01/18 14:00 10/01/18 13:59 Ondansetron HCl (Zofran) 4 mg Q6H PRN IVP Nausea & Vomiting 09/01/18 14:00 10/01/18 13:59 Pantoprazole (Protonix) 40 mg DAILY ORAL 09/03/18 09:00 10/03/18 08:59 Pantoprazole (Protonix) 40 mg ONCE ORAL 09/02/18 14:00 09/02/18 15:00 Polyethylene Glycol (Miralax) 17 gm DAILYPRN PRN ORAL Constipation 09/01/18 14:00 10/01/18 13:59 Temazepam (Restoril) 15 mg HSPRN PRN ORAL Insomnia 09/01/18 21:00 09/08/18 20:59 Vancomycin HCl/ Dextrose 250 ml @ 125 mls/hr Q12H IVPB 09/01/18 22:00 09/06/18 21:59 09/02/18 11:19 Lee Delaney MD Sep 02, 2018 14:13
[2018-09-02 16:00] VITALS: BP 128/62
--- NOTE | 2018-09-02 16:47 | Internal Med Progress Note ---
Subjective Physician Name Shen Arboleda Attending Physician Shen Arboleda MD Current Medications Medications (Trade) Dose Ordered Sig/Kassie Route PRN Reason Start Time Stop Time Status Last Admin Dose Admin Acetaminophen (Tylenol) 650 mg Q4H PRN ORAL fever 09/01/18 13:30 10/01/18 13:29 Acetaminophen/ Hydrocodone Bitart ([place] 10/325) 1 tab Q4H PRN ORAL Moderate Pain (Pain Scale 4-6) 09/01/18 14:00 09/08/18 13:59 Albuterol/ Ipratropium (Albuterol/ Ipratropium) 3 ml Q4H PRN HHN Shortness of Breath 09/01/18 14:00 09/06/18 13:59 Aspirin (Ecotrin) 81 mg DAILY ORAL 09/02/18 09:00 10/02/18 08:59 09/02/18 08:12 Clotrimazole (Lotrimin) 1 applic THREE TIMES A DAY TOPIC 09/02/18 14:00 10/02/18 13:59 09/02/18 13:13 Dextrose (Dextrose 50%) 25 ml STAT PRN IV Hypoglycemia 09/01/18 13:15 10/01/18 13:14 Dextrose (Dextrose 50%) 50 ml STAT PRN IV Hypoglycemia 09/01/18 14:00 10/01/18 13:59 Gabapentin (Neurontin) 800 mg TID ORAL 09/02/18 09:00 10/01/18 13:59 09/02/18 13:12 Heparin Sodium (Porcine) (Heparin 5000 units/ml) 5,000 units EVERY 12 HOURS SUBQ 09/01/18 21:00 10/01/18 20:59 09/02/18 08:22 Insulin Aspart (NovoLOG) BEFORE MEALS AND HS SUBQ 09/01/18 16:30 10/01/18 16:29 09/02/18 11:22 Morphine Sulfate (Morphine Sulfate) 2 mg Q4H PRN IVP Severe Pain (Pain Scale 7-10) 09/01/18 14:00 09/08/18 13:59 09/02/18 02:55 Nitroglycerin (Ntg) 0.4 mg Q5M PRN SL Prn Chest Pain 09/01/18 14:00 10/01/18 13:59 Ondansetron HCl (Zofran) 4 mg Q6H PRN IVP Nausea & Vomiting 09/01/18 14:00 10/01/18 13:59 Pantoprazole (Protonix) 40 mg DAILY ORAL 09/03/18 09:00 10/03/18 08:59 Polyethylene Glycol (Miralax) 17 gm DAILYPRN PRN ORAL Constipation 09/01/18 14:00 10/01/18 13:59 Temazepam (Restoril) 15 mg HSPRN PRN ORAL Insomnia 09/01/18 21:00 09/08/18 20:59 Vancomycin HCl/ Dextrose 250 ml @ 125 mls/hr Q12H IVPB 09/01/18 22:00 09/06/18 21:59 09/02/18 11:19 Allergies: Coded Allergies: No Known Allergies (Verified , 06/06/11) Subjective awake, responsive, alert, NAD, C/O right leg pain. Objective Last Vital Signs Date Time Temp Pulse Resp B/P (MAP) Pulse Ox O2 Delivery O2 Flow Rate FiO2 09/02/18 16:00 98.2 85 20 128/62 (84) 96 09/02/18 09:38 Room Air Laboratory Tests Test 09/02/18 05:44 09/02/18 06:00 White Blood Count 7.0 K/UL (4.8-10.8) Red Blood Count 3.69 M/UL (4.20-5.40) L Hemoglobin 11.1 G/DL (12.0-16.0) L Hematocrit 32.4 % (37.0-47.0) L Mean Corpuscular Volume 88 FL (80-99) Mean Corpuscular Hemoglobin 30.0 PG (27.0-31.0) Mean Corpuscular Hemoglobin Concent 34.3 G/DL (32.0-36.0) Red Cell Distribution Width 13.7 % (11.6-14.8) Platelet Count 274 K/UL (150-450) Mean Platelet Volume 6.2 FL (6.5-10.1) L Neutrophils (%) (Auto) 52.7 % (45.0-75.0) Lymphocytes (%) (Auto) 38.8 % (20.0-45.0) Monocytes (%) (Auto) 4.8 % (1.0-10.0) Eosinophils (%) (Auto) 2.7 % (0.0-3.0) Basophils (%) (Auto) 1.0 % (0.0-2.0) Sodium Level 139 MMOL/L (136-145) Potassium Level 4.0 MMOL/L (3.5-5.1) Chloride Level 101 MMOL/L (98-107) Carbon Dioxide Level 29 MMOL/L (21-32) Anion Gap 9 mmol/L (5-15) Blood Urea Nitrogen 21 mg/dL (7-18) H Creatinine 1.3 MG/DL (0.55-1.30) Estimat Glomerular Filtration Rate 50.4 mL/min (>60) Glucose Level 244 MG/DL (74-106) #H Calcium Level 9.8 MG/DL (8.5-10.1) Total Bilirubin 0.5 MG/DL (0.2-1.0) Aspartate Amino Transf (AST/SGOT) 31 U/L (15-37) Alanine Aminotransferase (ALT/SGPT) 41 U/L (12-78) Alkaline Phosphatase 90 U/L (46-116) Total Protein 7.7 G/DL (6.4-8.2) Albumin 3.7 G/DL (3.4-5.0) Globulin 4.0 g/dL Albumin/Globulin Ratio 0.9 (1.0-2.7) L Uric Acid 5.5 MG/DL (2.6-7.2) Intake and Output 09/01/18 09/02/18 19:00 07:00 Intake Total 1200 ml Balance 1200 ml Intake Oral 840 ml IV Total 360 ml # Voids 1 2 Objective General: No acute distress, awake and alert HEENT: NCAT, sclera anicteric, PERRL, EOMI. Neck: Supple, no significant jugular venous distention, Lungs: Good inspiratory effort, clear to auscultation bilaterally, no Wheeze or Rales. Heart: Regular rate and rhythm, normal S1/S2, no murmurs Abdomen: soft, nontender, nondistended. Normoactive bowel sounds. / Rectal: Refused and deferred. Extremities: No Cyanosis , clubbing, Eight leg edema, less erythema.. Neuro: A&O x 3, Able to move all extremities Skin: warm, no rashes or lesions Psych: Normal mood and affect Assessment/Plan Assessment/Plan 1. Right ankle cellulitis. 2. Diabetes type 2. 3. Hypercholesterolemia. 4. Hypertension. 5. Diabetic neuropathy. 6. Gastroesophageal reflux disease. 7. Morbid obesity. TREATMENT: Infectious Disease consultation with Dr. Mario. Abx: Vancomycin and cefepime. Podiatry consultation with with Dr. Weaver. monitor labs and cultures. Shen Arboleda MD Sep 02, 2018 16:47
--- NOTE | 2018-09-02 19:04 | NUR ---
HAND-OFF: Report given to CRYSTAL Blanchard.
[2018-09-02 20:00] VITALS: BP 160/79
--- NOTE | 2018-09-02 20:00 | NUR ---
NURSE NOTES: Patient received in bed,asleep, arousable. IV intact and patent. Right leg elevated. No acute distress at this time. Will continue to monitor.
[2018-09-03] MEDS: Morphine Sulfate 4mg/ml Inj (IV/IM USE ONLY) IVP PRN (03:32)
[2018-09-03 04:00] VITALS: BP 131/72
[2018-09-03] MEDS: NovoLOG Insulin Flexpen SUBQ SCH ×2 (06:11→11:58)
--- NOTE | 2018-09-03 07:17 | NUR ---
HAND-OFF: Report given to Duglsa ROJAS.
--- NOTE | 2018-09-03 07:33 | NUR ---
NURSE NOTES: Received patient from CRYSTAL Figueredo. Patient is in bed, awake, in room air, not in respiratory distress. Bed is in the lowest position, locked, side rails up. Call light is within reach. Will continue to monitor patient.
--- NOTE | 2018-09-03 07:46 | NUR ---
NURSE NOTES: Received patient from Santo ROJAS, patient is up in bed, no distress noted, bed is locked and in lowest position, call light within reach, will continue to monitor with Chantal ROJAS.
[2018-09-03 08:00] VITALS: BP 126/75
--- NOTE | 2018-09-03 08:12 | Pulmonology Progress Note ---
Assessment/Plan Assessment/Plan ASSESSMENT Right foot cellulitis due to diabetic foot infection Diabetes mellitus with diabetic neuropathy Hypertension Hyperlipidemia Morbid obesity Right groin candidiasis PLAN OF CARE MS floor Abx as per ID recommendation Antifungal cream Ankle x-ray - no acute findings Venous duplex - negative DVT prophylaxis BS management with SSI, check HgA1c Continue aspirin Check lipid panel Pain management Bowel regimen Closely monitor BP Check inflammatory markers- CRP WNL, ESR minimally elevated, not impressive Continue Neurontin podiatry eval pending - case discussed and evaluated by supervising physician Subjective Allergies: Coded Allergies: No Known Allergies (Verified , 06/06/11) Subjective afebrile, no leukocytosis Objective Last 24 Hour Vital Signs Date Time Temp Pulse Resp B/P (MAP) Pulse Ox O2 Delivery O2 Flow Rate FiO2 09/03/18 06:55 78 16 Room Air 21 09/03/18 04:02 98.3 09/03/18 04:00 97.9 85 20 131/72 (91) 100 09/02/18 21:00 Room Air 09/02/18 20:00 98.3 80 20 160/79 (106) 97 09/02/18 19:57 89 18 Room Air 21 09/02/18 16:00 98.2 85 20 128/62 (84) 96 09/02/18 12:00 97.9 89 19 134/60 (84) 97 09/02/18 09:38 Room Air Intake and Output 09/02/18 09/03/18 18:59 06:59 Intake Total 1160 ml 600 ml Balance 1160 ml 600 ml Intake Oral 800 ml 350 ml IV Total 360 ml 250 ml # Voids 4 2 General Appearance: no acute distress, other - A/O/O x 4 morbidly obese AA female HEENT: normocephalic, mucous membranes moist, PERRL Respiratory/Chest: lungs clear - with moderate air exchange , no respiratory distress, no accessory muscle use Cardiovascular: normal peripheral pulses, normal rate, no JVD, edema - +3 Rfoot , TTT, erythema , no open wound, Neurologic/Psychiatric: no motor/sensory deficits, alert, oriented x 3, responsive Musculoskeletal: normal muscle bulk Current Medications Medications (Trade) Dose Ordered Sig/Kassie Route PRN Reason Start Time Stop Time Status Last Admin Dose Admin Acetaminophen (Tylenol) 650 mg Q4H PRN ORAL fever 09/01/18 13:30 10/01/18 13:29 Acetaminophen/ Hydrocodone Bitart ([place] 10/325) 1 tab Q4H PRN ORAL Moderate Pain (Pain Scale 4-6) 09/01/18 14:00 09/08/18 13:59 Albuterol/ Ipratropium (Albuterol/ Ipratropium) 3 ml Q4H PRN HHN Shortness of Breath 09/01/18 14:00 09/06/18 13:59 Aspirin (Ecotrin) 81 mg DAILY ORAL 09/02/18 09:00 10/02/18 08:59 09/02/18 08:12 Clotrimazole (Lotrimin) 1 applic THREE TIMES A DAY TOPIC 09/02/18 14:00 10/02/18 13:59 09/02/18 17:10 Dextrose (Dextrose 50%) 25 ml STAT PRN IV Hypoglycemia 09/01/18 13:15 10/01/18 13:14 Dextrose (Dextrose 50%) 50 ml STAT PRN IV Hypoglycemia 09/01/18 14:00 10/01/18 13:59 Gabapentin (Neurontin) 800 mg TID ORAL 09/02/18 09:00 10/01/18 13:59 09/02/18 17:10 Heparin Sodium (Porcine) (Heparin 5000 units/ml) 5,000 units EVERY 12 HOURS SUBQ 09/01/18 21:00 10/01/18 20:59 09/02/18 21:14 Insulin Aspart (NovoLOG) BEFORE MEALS AND HS SUBQ 09/01/18 16:30 10/01/18 16:29 09/03/18 06:11 Morphine Sulfate (Morphine Sulfate) 2 mg Q4H PRN IVP Severe Pain (Pain Scale 7-10) 09/01/18 14:00 09/08/18 13:59 09/03/18 03:32 Nitroglycerin (Ntg) 0.4 mg Q5M PRN SL Prn Chest Pain 09/01/18 14:00 10/01/18 13:59 Ondansetron HCl (Zofran) 4 mg Q6H PRN IVP Nausea & Vomiting 09/01/18 14:00 10/01/18 13:59 Pantoprazole (Protonix) 40 mg DAILY ORAL 09/03/18 09:00 10/03/18 08:59 Polyethylene Glycol (Miralax) 17 gm DAILYPRN PRN ORAL Constipation 09/01/18 14:00 10/01/18 13:59 Temazepam (Restoril) 15 mg HSPRN PRN ORAL Insomnia 09/01/18 21:00 09/08/18 20:59 Vancomycin HCl/ Dextrose 250 ml @ 125 mls/hr Q12H IVPB 09/01/18 22:00 09/06/18 21:59 09/02/18 21:13 Patsy Sherman [employer] Sep 03, 2018 08:12
[2018-09-03] MEDS: Aspirin EC 81mg tab ORAL SCH (08:46)
[2018-09-03] MEDS: Heparin 5000 units/ml inj SUBQ SCH (08:49)
[2018-09-03] MEDS: Vancomycin 1500mg IVPB SCH (10:19)
[2018-09-03 10:31] LABS: BASOPHILS % (AUTO) 0.7 % (0.0-2.0); EOSINOPHILS % (AUTO) 3.6 % (0.0-3.0); HEMATOCRIT 31.8 % (37.0-47.0); LYMPHOCYTES % (AUTO) 30.3 % (20.0-45.0); MEAN CORPUSCULAR VOLUME 88 FL (80-99); MONOCYTES % (AUTO) 7.6 % (1.0-10.0); NEUTROPHILS % (AUTO) 57.7 % (45.0-75.0); PLATELET COUNT 256 K/UL (150-450); RED BLOOD COUNT 3.64 M/UL (4.20-5.40); RED CELL DISTRIBUTION WIDTH 13.4 % (11.6-14.8); WHITE BLOOD COUNT 6.9 K/UL (4.8-10.8)
[2018-09-03 10:51] LABS: ALANINE AMINOTRANSFERASE 66 U/L (12-78); ALBUMIN 3.6 G/DL (3.4-5.0); ALKALINE PHOSPHATASE 97 U/L (46-116); ANION GAP 5 mmol/L (5-15); ASPARTATE AMINO TRANSFERASE 32 U/L (15-37); BILIRUBIN,TOTAL 0.4 MG/DL (0.2-1.0); BLOOD UREA NITROGEN 20 mg/dL (7-18); CALCIUM 9.6 MG/DL (8.5-10.1); CARBON DIOXIDE 31 MMOL/L (21-32); CHLORIDE 103 MMOL/L (98-107); CREATININE 1.1 MG/DL (0.55-1.30); PHOSPHORUS 3.4 MG/DL (2.5-4.9); POTASSIUM 4.6 MMOL/L (3.5-5.1); SODIUM 139 MMOL/L (136-145)
[2018-09-03 12:00] VITALS: BP 126/76
[2018-09-03] MEDS ORDERED: Tubing IV Secondary IV ONE (14:06)
[2018-09-03] MEDS ORDERED: NS 275ml ONE (14:06)
--- NOTE | 2018-09-03 14:29 | Internal Med Progress Note ---
Subjective Date of Service: Sep 03, 2018 Physician Name Tristian Sneed Attending Physician Shen Arboleda MD Current Medications Medications (Trade) Dose Ordered Sig/Kassie Route PRN Reason Start Time Stop Time Status Last Admin Dose Admin Acetaminophen (Tylenol) 650 mg Q4H PRN ORAL fever 09/01/18 13:30 10/01/18 13:29 Acetaminophen/ Hydrocodone Bitart ([place] 10/325) 1 tab Q4H PRN ORAL Moderate Pain (Pain Scale 4-6) 09/01/18 14:00 09/08/18 13:59 Albuterol/ Ipratropium (Albuterol/ Ipratropium) 3 ml Q4H PRN HHN Shortness of Breath 09/01/18 14:00 09/06/18 13:59 Aspirin (Ecotrin) 81 mg DAILY ORAL 09/02/18 09:00 10/02/18 08:59 09/03/18 08:46 Clotrimazole (Lotrimin) 1 applic THREE TIMES A DAY TOPIC 09/02/18 14:00 10/02/18 13:59 09/03/18 13:06 Dextrose (Dextrose 50%) 25 ml STAT PRN IV Hypoglycemia 09/01/18 13:15 10/01/18 13:14 Dextrose (Dextrose 50%) 50 ml STAT PRN IV Hypoglycemia 09/01/18 14:00 10/01/18 13:59 Gabapentin (Neurontin) 800 mg TID ORAL 09/02/18 09:00 10/01/18 13:59 09/03/18 13:06 Heparin Sodium (Porcine) (Heparin 5000 units/ml) 5,000 units EVERY 12 HOURS SUBQ 09/01/18 21:00 10/01/18 20:59 09/03/18 08:49 Insulin Aspart (NovoLOG) BEFORE MEALS AND HS SUBQ 09/01/18 16:30 10/01/18 16:29 09/03/18 11:58 Morphine Sulfate (Morphine Sulfate) 2 mg Q4H PRN IVP Severe Pain (Pain Scale 7-10) 09/01/18 14:00 09/08/18 13:59 09/03/18 03:32 Nitroglycerin (Ntg) 0.4 mg Q5M PRN SL Prn Chest Pain 09/01/18 14:00 10/01/18 13:59 Ondansetron HCl (Zofran) 4 mg Q6H PRN IVP Nausea & Vomiting 09/01/18 14:00 10/01/18 13:59 Pantoprazole (Protonix) 40 mg DAILY ORAL 09/03/18 09:00 10/03/18 08:59 09/03/18 08:46 Polyethylene Glycol (Miralax) 17 gm DAILYPRN PRN ORAL Constipation 09/01/18 14:00 10/01/18 13:59 Temazepam (Restoril) 15 mg HSPRN PRN ORAL Insomnia 09/01/18 21:00 09/08/18 20:59 Vancomycin HCl (Vanco rx to dose) 1 ea DAILY PRN MISC PER PHARMACY 09/03/18 13:45 10/03/18 13:44 Vancomycin HCl/ Dextrose 250 ml @ 125 mls/hr Q12H IVPB 09/01/18 22:00 09/06/18 21:59 09/03/18 10:19 Allergies: Coded Allergies: No Known Allergies (Verified , 06/06/11) ROS Limited/Unobtainable: No Constitutional: Reports: no symptoms HEENT: Reports: no symptoms Cardiovascular: Reports: no symptoms Respiratory: Reports: no symptoms Gastrointestinal/Abdominal: Reports: no symptoms Genitourinary: Reports: no symptoms Neurologic/Psychiatric: Reports: no symptoms Subjective 62 YO F admitted with right ankle pain. Now cellulitis right ankle. Cover for Int Carmelo-DR Arboleda Objective Last Vital Signs Date Time Temp Pulse Resp B/P (MAP) Pulse Ox O2 Delivery O2 Flow Rate FiO2 09/03/18 12:00 97.0 76 18 126/76 (93) 97 09/03/18 09:00 Room Air 09/03/18 06:55 21 General Appearance: WD/WN, no apparent distress, alert EENT: PERRL/EOMI, normal ENT inspection, TMs normal Neck: non-tender, normal alignment, supple, normal inspection Cardiovascular: normal peripheral pulses, normal rate, regular rhythm, no gallop/murmur, no JVD Respiratory/Chest: chest wall non-tender, lungs clear, normal breath sounds, no respiratory distress, no accessory muscle use Abdomen: normal bowel sounds, non tender, soft, no organomegaly, no mass Extremities: other - erythema right ankle Edema: trace edema Neurologic: pan devulcanizer helper II-XII grossly normal, no motor/sensory deficits Skin: normal pigmentation, warm/dry Laboratory Tests Test 09/03/18 09:00 White Blood Count 6.9 K/UL (4.8-10.8) Red Blood Count 3.64 M/UL (4.20-5.40) L Hemoglobin 11.0 G/DL (12.0-16.0) L Hematocrit 31.8 % (37.0-47.0) L Mean Corpuscular Volume 88 FL (80-99) Mean Corpuscular Hemoglobin 30.2 PG (27.0-31.0) Mean Corpuscular Hemoglobin Concent 34.5 G/DL (32.0-36.0) Red Cell Distribution Width 13.4 % (11.6-14.8) Platelet Count 256 K/UL (150-450) Mean Platelet Volume 6.4 FL (6.5-10.1) L Neutrophils (%) (Auto) 57.7 % (45.0-75.0) Lymphocytes (%) (Auto) 30.3 % (20.0-45.0) Monocytes (%) (Auto) 7.6 % (1.0-10.0) Eosinophils (%) (Auto) 3.6 % (0.0-3.0) H Basophils (%) (Auto) 0.7 % (0.0-2.0) Erythrocyte Sedimentation Rate 38 MM/HR (0-30) H Sodium Level 139 MMOL/L (136-145) Potassium Level 4.6 MMOL/L (3.5-5.1) Chloride Level 103 MMOL/L (98-107) Carbon Dioxide Level 31 MMOL/L (21-32) Anion Gap 5 mmol/L (5-15) Blood Urea Nitrogen 20 mg/dL (7-18) H Creatinine 1.1 MG/DL (0.55-1.30) Estimat Glomerular Filtration Rate > 60 mL/min (>60) Glucose Level 298 MG/DL (74-106) H Calcium Level 9.6 MG/DL (8.5-10.1) Phosphorus Level 3.4 MG/DL (2.5-4.9) Magnesium Level 2.0 MG/DL (1.8-2.4) Total Bilirubin 0.4 MG/DL (0.2-1.0) Aspartate Amino Transf (AST/SGOT) 32 U/L (15-37) Alanine Aminotransferase (ALT/SGPT) 66 U/L (12-78) Alkaline Phosphatase 97 U/L (46-116) C-Reactive Protein, Quantitative < 0.4 mg/dL (0.00-0.90) Total Protein 7.1 G/DL (6.4-8.2) Albumin 3.6 G/DL (3.4-5.0) Globulin 3.5 g/dL Albumin/Globulin Ratio 1.0 (1.0-2.7) Vancomycin Level Trough 13.4 ug/mL (5.0-12.0) H Intake and Output 09/02/18 09/03/18 19:00 07:00 Intake Total 1160 ml 600 ml Balance 1160 ml 600 ml Intake Oral 800 ml 350 ml IV Total 360 ml 250 ml # Voids 4 2 Assessment/Plan Problem List: (1) GERD (gastroesophageal reflux disease) (2) Hypercholesterolemia (3) HTN (hypertension) (4) Diabetic neuropathy (5) Diabetes mellitus, type II Assessment & Plan: Continue novolog sliding scale. (6) Cellulitis of right ankle Assessment & Plan: See ID note. Continue vanco (7) Diabetic foot infection Status: progressing Tristian Sneed MD Sep 03, 2018 14:29
--- NOTE | 2018-09-03 16:13 | NUR ---
NURSE NOTES: Patient left the hospital against medical advice, patient reports that she has many financial obligations she must attend to and needs to leave, patient agrees to follow up with her primary doctor as soon as possible, charge nurse, and Dr. Arbloeda, and nursing cabin supervisor made aware of AMA, no distress noted, patient IV removed, belongings gathered by patient, patient refused to sign belongings list, ID band removed, patient transported downstairs via wheelchair by Chantal ROJAS.
--- NOTE | 2018-09-05 18:29 | Discharge Summary ---
Discharge Summary Discharge Summary _ DATE OF ADMISSION: 09/01/2018 DATE OF DISCHARGE: 09/03/2018 Patient signed AGAINST MEDICAL ADVICE REASON FOR ADMISSION: 62 years old female with past medical history of hypertension, diabetes mellitus , diabetic neuropathy, high cholesterol, morbid obesity, presented to emergency room with chief complaint of right lower extremity pain, swelling and redness near her ankle. She denied fall or injury to the leg. She denied fever and chills. She denied chest pain or shortness of breath. She denied abdominal pain, nausea, vomiting, diarrhea. Upon evaluation vital signs were stable. Venous duplex right upper lower extremity revealed no evidence of acute DVT. X-ray of the right food revealed diffuse edema of soft tissue , but no definite fracture or dislocation. Laboratory workup revealed no leukocytosis, stable hemoglobin hematocrit. BUN 22 creatinine 1.1, stable electrolytes. Urinalysis revealed +1 leukocyte esterase and few bacteria. Patient admitted for further management. CONSULTANTS: pulmonary Dr. Rhett MORA specialist Dr. Mario [facility] COURSE: Patient admitted to medical surgical floor. IV antibiotics provided as per infectious disease specialist recommendation. Antifungal cream provided for right groin candidiasis. DVT prophylaxis provided. Blood sugar was managed with sliding scale of insulin. Antiplatelet therapy with aspirin was continued. Lipid panel was ordered. Uric acid 5.5. Pain management was addressed. Bowel regimen instituted. Blood pressure was closely monitored. Inflammatory markers revealed CRP within normal limits and ESR minimally elevated, not impressive. Neurontin was continued. Podiatry eval was requested. Patient decided to leave AGAINST MEDICAL ADVICE. The risks and consequences of signing AGAINST MEDICAL ADVICE were discussed with patient in detail. Patient verbalized understanding, nevertheless left AGAINST MEDICAL ADVICE. FINAL DIAGNOSES: Right foot cellulitis due to diabetic foot infection Diabetes mellitus with diabetic neuropathy Hypertension Hyperlipidemia Morbid obesity Right groin candidiasis Patsy Sherman NP Sep 05, 2018 18:29
--- NOTE | 2018-09-06 14:21 | Diagnostic Imaging Report ---
APPROVED REPORT CPT Code: 73583 Present Symptoms Comments: Pain and swelling LEFT LEG: Venous imaging reveals a patent deep venous system. There is no evidence of thrombus within the femoral, popliteal or tibial segments. Doppler indicates normal spontaneous flow within these segments. VENOUS INSUFFICIENCY: SUPERFICIAL VENOUS SYSTEM: Imaging reveals venous insufficiency in the greater saphenous vein at the right proximal, mid-thigh to knee level . Reflux lasted longer than 0.5 seconds, left leg.
--- NOTE | 2018-09-06 14:22 | Diagnostic Imaging Report ---
APPROVED REPORT CPT Code: 58057 Present Symptoms Lower Extremity Edema: Right Comments: Pain RIGHT LEG: Venous imaging reveals a patent deep venous system. There is no evidence of thrombus within the femoral, popliteal or tibial segments. Doppler indicates normal spontaneous flow within these segments. VENOUS INSUFFICIENCY: SUPERFICIAL VENOUS SYSTEM: Imaging reveals venous insufficiency in the greater saphenous vein at the right proximal, mid-thigh to knee level . Reflux lasted longer than 0.5 seconds, right leg.
== END 2018-09-03 16:21 | disposition left against medical advice (07) | DRG 638 ==
LOC: EMR 11:30 → 4E 12:00 → EDBEDREQ 12:33 → 4E 13:00
DX: E11.628 Type 2 diabetes mellitus with other skin complications (principal); L03.115 Cellulitis of right lower limb; B37.89 Other sites of candidiasis; E78.00 Pure hypercholesterolemia, unspecified; E11.40 Type 2 diabetes mellitus with diabetic neuropathy, unspecified; E66.01 Morbid (severe) obesity due to excess calories; Z68.39 Body mass index [BMI] 39.0-39.9, adult; K21.9 Gastro-esophageal reflux disease without esophagitis; Z79.4 Long term (current) use of insulin; Z79.82 Long term (current) use of aspirin
CPT/HCPCS: 36415; 80053; 80202; 81003; 82962; 83735; 84100; 84550; 85025; 85651; 86140; 93971; 94664; 96365; 96366; 96375; 99285; J1815; J2405

== ENCOUNTER 2020-01-12 16:04 | Emergency (ER) | payer MEDICARE, MEDICAID ==
[~2020-01-12] VITALS: Ht 185.4 cm; Wt 135.6 kg
[2020-01-12 16:20] VITALS: BP 150/90
[2020-01-12] MEDS ORDERED: HYDROcodone/Acetamin 5/325 tab ORAL ONE (16:45)
--- NOTE | 2020-01-12 17:14 | Emergency Room Report ---
History of Present Illness General Chief Complaint: Multiple Trauma/Fall Source: Patient Present Illness HPI Disclaimer: Please note that this report is being documented using [employer] technology. This can lead to erroneous entry secondary to incorrect interpretation by the dictating instrument. HPI: 64-year-old female history of hypertension and diabetes presented after a mechanical fall. She was walking at a store and slipped on some water, falling on her right side. She did mainly hitting her hip and her elbow. She did states she hit her head but denies loss of consciousness denies any head neck or back pain at this time. Complains of pain 9 out of 10 in the right hip and right elbow worse with palpation and movement. She was ambulatory on arrival. She did not take any pain medication prior to arrival. Patient does not take any blood thinners PMH: Hypertension and diabetes. PSH: Reviewed Social Hx: She denies smoking drinking or illicit drug use Allergies: Coded Allergies: No Known Allergies (Verified , 06/06/11) COVID-19 Screening Contact w/high risk pt: No Recent Travel to affected area: No Experienced COVID-19 symptoms?: No COVID-19 Testing performed BOOKING CLERK: No Patient History Reviewed Nursing Documentation: PMH: Agreed; PSxH: Agreed Nursing Documentation-PMH Past Medical History: No History, Except For Hx Cardiac Problems: Yes - htn, Hx Hypertension: Yes Hx Diabetes: Yes Hx Cancer: No Hx Gastrointestinal Problems: Yes - OBESITY Hx Neurological Problems: No Hx Cerebrovascular Accident: No Hx Transient Ischemic Attacks: No Hx Dementia: No Hx Alzheimer's Disease: No Hx Parkinson's Disease: No Hx Meningitis: No Hx Encephalitis: No Hx Seizures: No Hx Epilepsy: No Hx Multiple Sclerosis: No Hx Cerebral Palsy: No Hx Amyotrophic Lat Sclerosis: No Hx [place]illian-[place] Syndrome: No Hx Paralysis: No Hx Peripheral Neuropathy: Yes - BLE Hx Dizziness: Yes Hx Neurologic Surgery: No Hx Brain Shunt: No Review of Systems All Other Systems: negative except mentioned in HPI Physical Exam Vital Signs Date Time Temp Pulse Resp B/P (MAP) Pulse Ox O2 Delivery O2 Flow Rate FiO2 01/12/20 16:10 98.8 103 20 150/90 (110) 95 Room Air Sp02 EP Interpretation: reviewed, normal General Appearance: well appearing, no apparent distress Head: normocephalic, atraumatic Eyes: bilateral eye PERRL, bilateral eye EOMI ENT: hearing grossly normal, moist mucus membranes Neck: full range of motion, supple, other - No midline tenderness Respiratory: lungs clear, normal breath sounds, no rhonchi, no respiratory distress, no retraction, no wheezing Cardiovascular #1: normal peripheral pulses, regular rate, rhythm, no murmur Gastrointestinal: non tender, soft, non-distended, no guarding Musculoskeletal: other - Full range of motion of right elbow with mild pain no deformity sensation and pulses intact. Mild tenderness the right hip with full range of motion. Patient ambulatory with a cane. Neurologic: alert, oriented x3, no focal defects Skin: normal color, warm/dry Medical Decision Making Diagnostic Impression: Primary Impression: Contusion of right elbow Additional Impression: Contusion of right hip ER Course MDM: Patient presents after mechanical fall. Patient had mild tenderness of the right elbow and right hip. Differential included contusions, less likely fracture dislocations. Less likely intracranial hemorrhage. Low suspicion for serious traumatic injury. Patient was ambulatory on arrival. She had no headache. She does not take any blood thinners. Clinical [id number] ordered, did not visualize any acute fracture or dislocation. She does have arthritis in the hip. Patient was given pain control.Labs - On reevaluation: Remained in no acute distress. Will discharge home with analgesics and follow-up PMD. Plan-patient will be discharged home with follow-up PMD and return precautions. Other X-Ray Diagnostic Results Other X-Ray Diagnostic Results #1: X-Ray ordered: Right elbow # of Views/Limited Vs Complete: 3 View Indication: Pain Interpretation: no fractures Impression: No acute disease Electronically Signed by: Umberto Dukes MD Other X-Ray Diagnostic Results #2: X-Ray ordered: X-ray of the right hip # of Views/Limited Vs Complete: 3 View Indication: Pain Interpretation: no dislocation, no fractures Impression: No acute disease Electronically Signed by: Umberto Dukes MD Last Vital Signs Date Time Temp Pulse Resp B/P (MAP) Pulse Ox O2 Delivery O2 Flow Rate FiO2 01/12/20 16:10 98.8 103 20 150/90 (110) 95 Room Air Status: improved Disposition: HOME, SELF-CARE Condition: Stable Referrals: NON PHYSICIAN (PCP) Umberto Dukes M.D. Jan 12, 2020 17:14
--- NOTE | 2020-01-12 17:16 | Diagnostic Imaging Report ---
Indication: Trauma, pain Technique: 2 views of the right hip, one view of the pelvis Comparison: none Findings: Exam is somewhat limited by patient body habitus. There is severe degenerative changes right hip joint, with near complete obliteration of the joint space, subchondral sclerosis, and subchondral cyst formation as well as proliferative changes. Less severe but still marked degenerative changes of the left hip joint are also noted. No acute fractures. No dislocations. There are degenerative changes of the bilateral sacroiliac joints. Impression: No definite acute bony trauma. Note, however, that in elderly osteoporotic patients nondisplaced hip or pelvic fractures can easily be occult. Consider cross-sectional imaging if there is high clinical suspicion Advanced degenerative changes as described
--- NOTE | 2020-01-12 17:18 | Diagnostic Imaging Report ---
Indications:Pain, trauma Technique: Three or 4 views of the right elbow Comparison: None Findings: No acute fractures. No dislocations. The joint spaces are preserved. Impression: Negative
[2020-01-12 17:37] VITALS: BP 150/90
== END 2020-01-12 17:37 | disposition home or self-care (01) ==
LOC: EMR 16:45
DX: S50.01XA Contusion of right elbow, initial encounter (principal); S70.01XA Contusion of right hip, initial encounter; W01.0XXA Fall on same level from slipping, tripping and stumbling without subsequent striking against object, initial encounter; Y92.9 Unspecified place or not applicable; I10 Essential (primary) hypertension; E11.42 Type 2 diabetes mellitus with diabetic polyneuropathy; M16.11 Unilateral primary osteoarthritis, right hip
CPT/HCPCS: 99284

== ENCOUNTER 2020-04-26 16:39 | Inpatient (IN) | payer MEDICARE, MEDICAID ==
[~2020-04-26] VITALS: Ht 185.4 cm; Wt 105.0 kg
[2020-04-26 16:58] VITALS: BP 116/78
--- NOTE | 2020-04-26 17:38 | Diagnostic Imaging Report ---
EXAM: XR Chest, 1 View CLINICAL HISTORY: PAIN TECHNIQUE: Frontal view of the chest. COMPARISON: 04/06/2018. FINDINGS: Lungs: Unremarkable. No consolidation. Pleural space: Unremarkable. No pneumothorax. Heart: Unremarkable. No cardiomegaly. Mediastinum: Unremarkable. Bones/joints: Unremarkable. IMPRESSION: No acute cardiopulmonary disease.
[2020-04-26 17:40] LABS: ANION GAP 7 mmol/L (5-15); BLOOD UREA NITROGEN 19 mg/dL (7-18); CALCIUM 10.2 MG/DL (8.5-10.1); CARBON DIOXIDE 28 MMOL/L (21-32); CHLORIDE 97 MMOL/L (98-107); CREATININE 1.4 MG/DL (0.55-1.30); POTASSIUM 3.9 MMOL/L (3.5-5.1); SODIUM 132 MMOL/L (136-145)
[2020-04-26 17:46] LABS: ALANINE AMINOTRANSFERASE 33 U/L (12-78); ALBUMIN 4.2 G/DL (3.4-5.0); ALBUMIN/GLOBULIN RATIO 1.3 (1.0-2.7); ALKALINE PHOSPHATASE 90 U/L (46-116); ASPARTATE AMINO TRANSFERASE 26 U/L (15-37); BILIRUBIN,TOTAL 0.7 MG/DL (0.2-1.0)
[2020-04-26 17:47] LABS: BASOPHILS % (AUTO) 1.3 % (0.0-2.0); EOSINOPHILS % (AUTO) 1.9 % (0.0-3.0); HEMATOCRIT 36.4 % (37.0-47.0); HEMOGLOBIN 12.8 G/DL (12.0-16.0); LYMPHOCYTES % (AUTO) 30.8 % (20.0-45.0); MEAN CORPUSCULAR VOLUME 88 FL (80-99); MONOCYTES % (AUTO) 5.2 % (1.0-10.0); NEUTROPHILS % (AUTO) 60.8 % (45.0-75.0); PLATELET COUNT 271 K/UL (150-450); RED BLOOD COUNT 4.14 M/UL (4.20-5.40); RED CELL DISTRIBUTION WIDTH 12.2 % (11.6-14.8); WHITE BLOOD COUNT 7.8 K/UL (4.8-10.8)
--- NOTE | 2020-04-26 17:50 | Diagnostic Imaging Report ---
EXAM: CT Head Without Intravenous Contrast CLINICAL HISTORY: SZ TECHNIQUE: Axial computed tomography images of the head/brain without intravenous contrast. CTDI is 53.4 mGy and DLP is 1000.9 mGy-cm. One or more of the following dose reduction techniques were used: automated exposure control, adjustment of the mA and/or kV according to patient size, use of iterative reconstruction technique. COMPARISON: No relevant prior studies available. FINDINGS: Brain: No acute intracranial hemorrhage or cortical ischemia. Chronic small vessel ischemic changes. Ventricles: Unremarkable. Bones/joints: Unremarkable. No acute fracture. Soft tissues: Unremarkable. Sinuses: Unremarkable as visualized. Mastoid air cells: Unremarkable as visualized. IMPRESSION: No acute intracranial hemorrhage or skull fracture.
[2020-04-26] MEDS ORDERED: Insulin Human Regular 100units/ml 3ml IV ONE (18:00)
--- NOTE | 2020-04-26 18:35 | Emergency Room Report ---
History of Present Illness General Chief Complaint: General Complaint Present Illness HPI 64-year-old female with history of type 2 diabetes currently insulin-dependent here complaining of 1 day of dizziness, feeling in "out of it", and weak. Per the patient's daughter patient has been feeling this way since the dosing of her insulin has been changed in the past 2 days. Patient used to take insulin 70/30 for the longest time however recently her doctor changed her 200/33 is reported that she was taking way too much insulin. Patient has been having urinary frequency, hematuria since this change has happened. According to the daughter patient has been seeing colors differently in the past couple of days and feeling delirious. Patient also earlier almost passed out according to the daughter and paramedics were called, insulin was given a sugar was 300. According to the daughter patient seized for few seconds. Also lost urinary c ontinence patient is coherent at this time. No chest pain shortness of breath, abdominal pain, nausea vomiting diarrhea. (Mary Lux) Allergies: Coded Allergies: No Known Allergies (Verified , 06/06/11) COVID-19 Screening Contact w/high risk pt: No Recent Travel to affected area: No Experienced COVID-19 symptoms?: No COVID-19 Testing performed [employer] PROFESSOR: No (Mary Lux) Patient History Past Medical History: see triage record Past Surgical History: none Pertinent Family History: none Now: No Immunizations: UTD Reviewed Nursing Documentation: PMH: Agreed; PSxH: Agreed (Mary Lux) Nursing Documentation-PMH Hx Cardiac Problems: Yes - htn, Hx Hypertension: Yes Hx Diabetes: Yes Hx Cancer: No Hx Gastrointestinal Problems: Yes - OBESITY Hx Neurological Problems: No Hx Cerebrovascular Accident: No Hx Transient Ischemic Attacks: No Hx Dementia: No Hx Alzheimer's Disease: No Hx Parkinson's Disease: No Hx Meningitis: No Hx Encephalitis: No Hx Seizures: No Hx Epilepsy: No Hx Multiple Sclerosis: No Hx Cerebral Palsy: No Hx Amyotrophic Lat Sclerosis: No Hx Guillian-[place] Syndrome: No Hx Paralysis: No Hx Peripheral Neuropathy: Yes - BLE Hx Dizziness: Yes Hx Neurologic Surgery: No Hx Brain Shunt: No (Mary Lux) Review of Systems All Other Systems: negative except mentioned in HPI (Mary Lux) Physical Exam Vital Signs Date Time Temp Pulse Resp B/P (MAP) Pulse Ox O2 Delivery O2 Flow Rate FiO2 04/26/20 16:44 98.4 93 19 116/78 (91) Room Air 04/26/20 16:58 95 Sp02 EP Interpretation: reviewed, normal General Appearance: mild distress Head: normocephalic, atraumatic Eyes: bilateral eye normal inspection, bilateral eye PERRL ENT: hearing grossly normal, normal pharynx, no angioedema, normal voice Neck: full range of motion, supple/symm/no masses Respiratory: chest non-tender, lungs clear, normal breath sounds, no rhonchi, no respiratory distress, no retraction, speaking full sentences Cardiovascular #1: regular rate, rhythm, no edema Cardiovascular #2: 2+ carotid (R), 2+ carotid (L), 2+ radial (R), 2+ radial (L), 2+ dorsalis pedis (R), 2+ dorsalis pedis (L) Gastrointestinal: normal bowel sounds, non tender, soft, no mass, no organomegaly, no peritonitis, no bruit, non-distended, no guarding, no rebound Rectal: deferred Genitourinary: no CVA tenderness Musculoskeletal: back normal, no calf tenderness Neurologic: oriented Psychiatric: judgement/insight normal, memory normal, mood/affect normal, no suicidal/homicidal ideation Skin: no rash Lymphatic: no adenopathy (Mary Lux) Medical Decision Making PA Attestation ALL Diagnosis and treatment plan reviewed and discussed with my supervising physician Dr. Rosa (Mary Lux) Diagnostic Impression: Primary Impression: Hyperglycemia Additional Impression: Delirium ER Course 64-year-old female with history of type 2 diabetes currently insulin-dependent here complaining of 1 day of dizziness, feeling in "out of it", and weak. Per the patient's daughter patient has been feeling this way since the dosing of her insulin has been changed in the past 2 days. Patient used to take insulin 70/30 for the longest time however recently her doctor changed her 200/33 is reported that she was taking way too much insulin. Patient has been having urinary frequency, hematuria since this change has happened. According to the daughter patient has been seeing colors differently in the past couple of days and feeling delirious. Patient also earlier almost passed out according to the daughter and paramedics were called, insulin was given a sugar was 300. According to the daughter patient seized for few seconds. Also lost urinary continence patient is coherent at this time. No chest pain shortness of breath, abdominal pain, nausea vomiting diarrhea. Ddx considered but are not limited to: Delirium, hypoglycemia diabetes mellitus type 2 uncontrolled, diabetes mellitus type 1, neuropathy secondary to diabetes, DKA, acute kidney injury Vital signs: are WNL, pt. is afebrile H&PE are most consistent with: Hyperglycemia and delirium ORDERS: DKA order set, lactic acid ER intervention: NS bolus, insulin Patient was admitted with diagnosis of hyperglycemia and delirium to Dr. Ng under supervision of : Shelley pt stable at time of admission (Mary Lux) ER Course I personally evaluated this patient and I agree with the above assessment and plan. The admitting physician was spoken to over the phone and the patient was admitted in stable condition. (Jimmy Rosa M.D.) EKG Diagnostic Results Rate: normal Rhythm: NSR ST Segments: no acute changes Other Impression No acute ST changes (Mary Lux) Chest X-Ray Diagnostic Results Chest X-Ray Diagnostic Results : Chest X-Ray Ordered: Yes # of Views/Limited/Complete: 1 View Indication: Other EP Interpretation: Yes PA Xray: Interpretation reviewed, by supervising MD, and agrees with findings. Interpretation: no consolidation, no effusion, no pneumothorax Impression: No acute disease Electronically Signed by: Mary Ortiz PA-C (Mary Lux) CT/MRI/US Diagnostic Results CT/MRI/US Diagnostic Results : Imaging Test Ordered: Head CT no contrast Impression COMPARISON: No relevant prior studies available. FINDINGS: Brain: No acute intracranial hemorrhage or cortical ischemia. Chronic small vessel ischemic changes. Ventricles: Unremarkable. Bones/joints: Unremarkable. No acute fracture. Soft tissues: Unremarkable. Sinuses: Unremarkable as visualized. Mastoid air cells: Unremarkable as visualized. (Mary Lux) Last Vital Signs Date Time Temp Pulse Resp B/P (MAP) Pulse Ox O2 Delivery O2 Flow Rate FiO2 04/26/20 16:58 93 19 Room Air 04/26/20 16:58 98.4 116/78 95 (Mary Lux) Disposition: ADMITTED INPATIENT Condition: Serious Referrals: NON PHYSICIAN (PCP) Mary Lux Apr 26, 2020 18:35 Jimmy Rosa M.D. Apr 30, 2020 20:38
[2020-04-26 19:39] LABS: APPEARANCE,URINE CLOUDY; BILIRUBIN, URINE NEGATIVE (NEGATIVE); COLOR,URINE PALE YELLOW; GLUCOSE, URINE (UA) 4+ (NEGATIVE); KETONES,URINE 2+ (NEGATIVE); LEUKOCYTE ESTERASE ,URINE NEGATIVE (NEGATIVE); NITRITE,URINE NEGATIVE (NEGATIVE); PH,URINE 6 (4.5-8.0); PROTEIN,URINE 1+ (NEGATIVE); UROBILINOGEN,URINE NORMAL MG/DL (0.0-1.0)
[2020-04-26 22:02] VITALS: BP 109/96
[2020-04-26] MEDS ORDERED: HYDROcodone/Acetamin 5/325 tab ORAL PRN (23:45)
[2020-04-27 04:00] VITALS: BP 117/72
[2020-04-27 06:28] LABS: BASOPHILS % (AUTO) 1.1 % (0.0-2.0); EOSINOPHILS % (AUTO) 2.9 % (0.0-3.0); HEMATOCRIT 33.1 % (37.0-47.0); HEMOGLOBIN 11.9 G/DL (12.0-16.0); LYMPHOCYTES % (AUTO) 36.1 % (20.0-45.0); MEAN CORPUSCULAR VOLUME 85 FL (80-99); MONOCYTES % (AUTO) 6.1 % (1.0-10.0); NEUTROPHILS % (AUTO) 53.9 % (45.0-75.0); PLATELET COUNT 251 K/UL (150-450); RED BLOOD COUNT 3.89 M/UL (4.20-5.40); RED CELL DISTRIBUTION WIDTH 11.8 % (11.6-14.8); WHITE BLOOD COUNT 7.4 K/UL (4.8-10.8)
[2020-04-27] MEDS ORDERED: NovoLOG Insulin Flexpen SUBQ SCH ×2 (06:30→10:00)
[2020-04-27 06:38] LABS: CALCIUM 9.5 MG/DL (8.5-10.1); CREATININE 1.2 MG/DL (0.55-1.30); POTASSIUM 3.8 MMOL/L (3.5-5.1)
[2020-04-27 08:00] VITALS: BP 103/67
[2020-04-27] MEDS: Enoxaparin 40mg Inj SUBQ SCH (08:09)
--- NOTE | 2020-04-27 08:24 | History and Physical ---
History of Present Illness General Date patient seen: Apr 27, 2020 Reason for Hospitalization: General Complaint Present Illness HPI 64 years old female with past medical history of diabetes mellitus x2 currently insulin-dependent, hypertension, presented to emergency department as a dizziness generalized weakness. According to patient's daughter patient felt like this since her insulin dose was changed 2 days ago. According to her doctor. Patient reported urinary frequency with hematuria since it started. Patient apparently almost passed out and paramedics were called insulin was blood sugar was over 300. Vital signs were stable. EKG revealed sinus rhythm no acute ischemic changes. Chest x-ray revealed no acute cardiopulmonary pathology. CT of the head revealed no acute intracranial hemorrhage or skull fracture. Laboratory work-up revealed no leukocytosis stable hemoglobin hematocrit and platelet count. Sodium 132. BUN 19, creatinine 1.4. Glucose 412. Anion gap 7 potassium 3.9 calcium 10.2 magnesium 1.7 troponin negative albumin 4.2 urinalysis revealed protein +4 glucose no pyuria and few bacteria. Emergency department magnesium was replaced patient received 2 L of fluids Allergies: Coded Allergies: No Known Allergies (Verified , 06/06/11) COVID-19 Screening Contact w/high risk pt: No Recent Travel to affected area: No Experienced COVID-19 symptoms?: No Medication History Scheduled Albuterol Sulfate* (Albuterol Sulfate Mdi*), 2 PUFF INH Q6H Amoxicillin* (Amoxil*), 500 MG ORAL THREE TIMES A DAY Aspirin* (Aspir-Low*), 81 MG ORAL DAILY, (Reported) Dexlansoprazole (Dexilant), 60 MG ORAL DAILY, (Reported) Gabapentin* (Gabapentin*), 800 MG ORAL TID, (Reported) Ibuprofen* (Motrin*), 600 MG PO Q8HR Insuln Asp Prt/Insulin Aspart (Novolog Mix 70-30 Flexpen Syrn), 70 UNIT SQ ACBREAKFAST, (Reported) Insuln Asp Prt/Insulin Aspart (Novolog Mix 70-30 Flexpen Syrn), 70 UNIT SQ BEFORE DINNER, (Reported) Linagliptin (Tradjenta), 5 MG PO DAILY, (Reported) Losartan/Hydrochlorothiazide (Losartan-Hctz 100-25 Mg Tab), 1 TAB ORAL DAILY, (Reported) Metformin Hcl* (Metformin Hcl*), 500 MG ORAL TWICE A DAY, (Reported) Rosuvastatin Calcium (Crestor), 0 ORAL BID, (Reported) Scheduled PRN Hydrocodone Bit/Acetaminophen 10-325* ([place] 10-325*), 1 TAB ORAL Q4H PRN for For Pain, (Reported) Oxycodone/Acetaminophen 5-325* (Percocet 5-325 Mg Tablet*), 1 TAB ORAL Q6H PRN for For Pain Durable Medical Equipment Comp.stocking,Thigh,Short,Lrg (T.e.d. Anti-Embolism Stocking), EACH , (DME) Patient History Healthcare decision maker N Resuscitation status Advanced Directive on File Physical Exam Last 24 Hour Vital Signs Date Time Temp Pulse Resp B/P (MAP) Pulse Ox O2 Delivery O2 Flow Rate FiO2 04/27/20 04:00 98.2 84 18 117/72 (87) 94 04/27/20 00:50 Room Air 04/26/20 22:02 98.4 85 20 109/96 98 Room Air 04/26/20 16:58 93 19 Room Air 04/26/20 16:58 98.4 93 19 116/78 95 Room Air 04/26/20 16:44 98.4 93 19 116/78 (91) Room Air Intake and Output 04/26/20 04/27/20 19:00 07:00 Intake Total 480 ml Output Total 0 ml 600 ml Balance 0 ml -120 ml Intake Oral 480 ml Output Urine Total 0 ml 600 ml # Voids 2 Laboratory Tests Test 04/26/20 17:15 04/26/20 17:20 04/26/20 19:20 04/26/20 20:16 Lactic Acid Level 2.00 mmol/L (0.4-2.0) White Blood Count 7.8 K/UL (4.8-10.8) Red Blood Count 4.14 M/UL (4.20-5.40) L Hemoglobin 12.8 G/DL (12.0-16.0) Hematocrit 36.4 % (37.0-47.0) L Mean Corpuscular Volume 88 FL (80-99) Mean Corpuscular Hemoglobin 30.9 PG (27.0-31.0) Mean Corpuscular Hemoglobin Concent 35.2 G/DL (32.0-36.0) Red Cell Distribution Width 12.2 % (11.6-14.8) Platelet Count 271 K/UL (150-450) Mean Platelet Volume 7.3 FL (6.5-10.1) Neutrophils (%) (Auto) 60.8 % (45.0-75.0) Lymphocytes (%) (Auto) 30.8 % (20.0-45.0) Monocytes (%) (Auto) 5.2 % (1.0-10.0) Eosinophils (%) (Auto) 1.9 % (0.0-3.0) Basophils (%) (Auto) 1.3 % (0.0-2.0) Sodium Level 132 MMOL/L (136-145) L Potassium Level 3.9 MMOL/L (3.5-5.1) Chloride Level 97 MMOL/L (98-107) L Carbon Dioxide Level 28 MMOL/L (21-32) Anion Gap 7 mmol/L (5-15) Blood Urea Nitrogen 19 mg/dL (7-18) H Creatinine 1.4 MG/DL (0.55-1.30) H Estimat Glomerular Filtration Rate 46.1 mL/min (>60) Glucose Level 412 MG/DL (74-106) H Calcium Level 10.2 MG/DL (8.5-10.1) H Magnesium Level 1.7 MG/DL (1.8-2.4) L Total Bilirubin 0.7 MG/DL (0.2-1.0) Aspartate Amino Transf (AST/SGOT) 26 U/L (15-37) Alanine Aminotransferase (ALT/SGPT) 33 U/L (12-78) Alkaline Phosphatase 90 U/L (46-116) Troponin I 0.001 ng/mL (0.000-0.056) Total Protein 7.5 G/DL (6.4-8.2) Albumin 4.2 G/DL (3.4-5.0) Globulin 3.3 g/dL Albumin/Globulin Ratio 1.3 (1.0-2.7) Lipase 50 U/L (73-393) L Acetone Level Negative (NEGATIVE) Urine Color Pale yellow Urine Appearance Cloudy Urine pH 6 (4.5-8.0) Urine Specific [place] 1.010 (1.005-1.035) Urine Protein 1+ (NEGATIVE) H Urine Glucose (UA) 4+ (NEGATIVE) H Urine Ketones 2+ (NEGATIVE) H Urine Blood 1+ (NEGATIVE) H Urine Nitrite Negative (NEGATIVE) Urine Bilirubin Negative (NEGATIVE) Urine Urobilinogen Normal MG/DL (0.0-1.0) Urine Leukocyte Esterase Negative (NEGATIVE) Urine RBC 2-4 /HPF (0 - 2) H Urine WBC 0-2 /HPF (0 - 2) Urine Squamous Epithelial Cells Many /LPF (NONE/OCC) H Urine Bacteria Few /HPF (NONE) POC Whole Blood Glucose 237 MG/DL (74-106) H Test 04/27/20 05:12 04/27/20 05:15 POC Whole Blood Glucose 349 MG/DL (74-106) H White Blood Count 7.4 K/UL (4.8-10.8) Red Blood Count 3.89 M/UL (4.20-5.40) L Hemoglobin 11.9 G/DL (12.0-16.0) L Hematocrit 33.1 % (37.0-47.0) L Mean Corpuscular Volume 85 FL (80-99) Mean Corpuscular Hemoglobin 30.5 PG (27.0-31.0) Mean Corpuscular Hemoglobin Concent 35.9 G/DL (32.0-36.0) Red Cell Distribution Width 11.8 % (11.6-14.8) Platelet Count 251 K/UL (150-450) Mean Platelet Volume 7.0 FL (6.5-10.1) Neutrophils (%) (Auto) 53.9 % (45.0-75.0) Lymphocytes (%) (Auto) 36.1 % (20.0-45.0) Monocytes (%) (Auto) 6.1 % (1.0-10.0) Eosinophils (%) (Auto) 2.9 % (0.0-3.0) Basophils (%) (Auto) 1.1 % (0.0-2.0) Sodium Level 135 MMOL/L (136-145) L Potassium Level 3.8 MMOL/L (3.5-5.1) Chloride Level 100 MMOL/L (98-107) Carbon Dioxide Level 29 MMOL/L (21-32) Anion Gap 6 mmol/L (5-15) Blood Urea Nitrogen 16 mg/dL (7-18) Creatinine 1.2 MG/DL (0.55-1.30) Estimat Glomerular Filtration Rate 54.9 mL/min (>60) Glucose Level 330 MG/DL (74-106) H Hemoglobin A1c 11.2 % (4.3-6.0) H Calcium Level 9.5 MG/DL (8.5-10.1) Height (Feet): 6 Height (Inches): 1.00 Weight (Pounds): 229 Medications Current Medications Medications (Trade) Dose Ordered Sig/Ksasie Route PRN Reason Start Time Stop Time Status Last Admin Dose Admin Acetaminophen (Tylenol) 650 mg Q6H PRN ORAL MILD PAIN 04/26/20 23:45 05/26/20 23:44 04/27/20 01:48 Acetaminophen (Tylenol) 650 mg Q6H PRN ORAL Temp >100.5 04/26/20 23:45 05/26/20 23:44 Acetaminophen/ Hydrocodone Bitart ([place] 5/325) 1 tab Q6H PRN ORAL Moderate pain 04/26/20 23:45 05/03/20 23:44 Dextrose (Dextrose 50%) 25 ml Q30M PRN IV Hypoglycemia 04/26/20 23:45 07/25/20 23:44 Dextrose (Dextrose 50%) 50 ml Q30M PRN IV Hypoglycemia 04/26/20 23:45 07/25/20 23:44 Enoxaparin Sodium (Lovenox) 40 mg DAILY SUBQ 04/27/20 09:00 07/26/20 08:59 04/27/20 08:09 Insulin Aspart (NovoLOG) BEFORE MEALS AND HS SUBQ 04/27/20 06:30 07/26/20 06:29 04/27/20 06:58 Insulin Detemir (Levemir) 10 units BEDTIME SUBQ 04/27/20 21:00 07/26/20 20:59 Pantoprazole (Protonix) 40 mg DAILY ORAL 04/27/20 09:00 05/27/20 08:59 04/27/20 08:07 Assessment/Plan Assessment/Plan: ASSESSMENT Diabetes mellitus with hyperglycemia/ Diabetes mellitus [id number] Acute metabolic encephalopathy related to hyperglycemia Mild dehydration Electrolyte imbalance hypomagnesemia, hypercalcemia, hyponatremia Seizure episode PLAN OF CARE MS floor s/p 2 L IVF BS management with LA levemir and SSI endo eval and recs re further antiglycemic regimen HgbA1c -11.2, clearly not at goal diabetic diet and diabetic teaching dietary eval monitor lytes, renal parameters patient likely had mild dehydration, Ca down and Na up both imbalances likely due to dehydration patient apparently had an episode of seizure as per daughter will check EEG, will try to get neuro eval BP management GI prophylaxis supportive care case discussed and evaluated by supervising physician Patsy Sherman NP Apr 27, 2020 08:24
--- NOTE | 2020-04-27 09:40 | History & Physical ---
History and Physical History & Physicial seen and examined. Full dictation completed Kari Ng MD Apr 27, 2020 09:40
--- NOTE | 2020-04-27 09:42 | General Progress Note ---
Subjective Allergies: Coded Allergies: No Known Allergies (Verified , 06/06/11) Objective Last 24 Hour Vital Signs Date Time Temp Pulse Resp B/P (MAP) Pulse Ox O2 Delivery O2 Flow Rate FiO2 04/27/20 08:00 97.9 86 18 103/67 (79) 96 04/27/20 04:00 98.2 84 18 117/72 (87) 94 04/27/20 00:50 Room Air 04/26/20 22:02 98.4 85 20 109/96 98 Room Air 04/26/20 16:58 93 19 Room Air 04/26/20 16:58 98.4 93 19 116/78 95 Room Air 04/26/20 16:44 98.4 93 19 116/78 (91) Room Air Intake and Output 04/26/20 04/27/20 19:00 07:00 Intake Total 480 ml Output Total 0 ml 600 ml Balance 0 ml -120 ml Intake Oral 480 ml Output Urine Total 0 ml 600 ml # Voids 2 Laboratory Tests 04/26/20 17:15: Lactic Acid Level 2.00 04/26/20 17:20: White Blood Count 7.8, Red Blood Count 4.14L, Hemoglobin 12.8, Hematocrit 36.4L, Mean Corpuscular Volume 88, Mean Corpuscular Hemoglobin 30.9, Mean Corpuscular Hemoglobin Concent 35.2, Red Cell Distribution Width 12.2, Platelet Count 271, Mean Platelet Volume 7.3, Neutrophils (%) (Auto) 60.8, Lymphocytes (%) (Auto) 30.8, Monocytes (%) (Auto) 5.2, Eosinophils (%) (Auto) 1.9, Basophils (%) (Auto) 1.3, Sodium Level 132L, Potassium Level 3.9, Chloride Level 97L, Carbon Dioxide Level 28, Anion Gap 7, Blood Urea Nitrogen 19H, Creatinine 1.4H, Estimat Glomerular Filtration Rate 46.1, Glucose Level 412H, Calcium Level 10.2H, Magnesium Level 1.7L, Total Bilirubin 0.7, Aspartate Amino Transf (AST/SGOT) 26, Alanine Aminotransferase (ALT/SGPT) 33, Alkaline Phosphatase 90, Troponin I 0.001, Total Protein 7.5, Albumin 4.2, Globulin 3.3, Albumin/Globulin Ratio 1.3, Lipase 50L, Acetone Level Negative 04/26/20 19:20: Urine Color Pale yellow, Urine Appearance Cloudy, Urine pH 6, Urine Specific [place] 1.010, Urine Protein 1+H, Urine Glucose (UA) 4+H, Urine Ketones 2+H, Urine Blood 1+H, Urine Nitrite Negative, Urine Bilirubin Negative, Urine Urobilinogen Normal, Urine Leukocyte Esterase Negative, Urine RBC 2-4H, Urine WBC 0-2, Urine Squamous Epithelial Cells ManyH, Urine Bacteria Few 04/26/20 20:16: POC Whole Blood Glucose 237H 04/27/20 05:12: POC Whole Blood Glucose 349H 04/27/20 05:15: White Blood Count 7.4, Red Blood Count 3.89L, Hemoglobin 11.9L, Hematocrit 33.1L , Mean Corpuscular Volume 85, Mean Corpuscular Hemoglobin 30.5, Mean Corpuscular Hemoglobin Concent 35.9, Red Cell Distribution Width 11.8, Platelet Count 251, Mean Platelet Volume 7.0, Neutrophils (%) (Auto) 53.9, Lymphocytes (%) (Auto) 36.1, Monocytes (%) (Auto) 6.1, Eosinophils (%) (Auto) 2.9, Basophils (%) (Auto) 1.1, Sodium Level 135L, Potassium Level 3.8, Chloride Level 100, Carbon Dioxide Level 29, Anion Gap 6, Blood Urea Nitrogen 16, Creatinine 1.2, Estimat Glomerular Filtration Rate 54.9, Glucose Level 330H, Hemoglobin A1c 11.2H, Calci um Level 9.5 Height (Feet): 6 Height (Inches): 1.00 Weight (Pounds): 229 Assessment/Plan Assessment/Plan: .Full dictation and report in progress A/P: 1- Acute metabolic encephalopathy 2- Uncontrolled DM 3- HTN Plan: nephro, Endo have been consulted will optimize insulin dosage Kari Ng MD Apr 27, 2020 09:41
--- NOTE | 2020-04-27 10:23 | Consultation ---
Patsy Sherman [facility] WELLNESS COORDINATOR 04/27/20 1023: History of Present Illness General Date patient seen: Apr 27, 2020 Time patient seen: 09:00 Chief Complaint: BS OOC, LOC Referring physician: dr Ng Present Illness HPI 64 years old female with PMH of DM type 2, currently insulin-dependent, diabetic neuropathy, HTN , HLD, obesity, presented to ED with dizziness and generalized weakness. According to patient's daughter patient felt like this since her insulin dose was changed 2 days ago. Patient reported urinary frequency since it started. Patient reported seizure episode, per daughter patient lost consciousness for a short term, and had urinary incontinence. Patient reported prior episodes of " shaking" to me. Patient apparently almost passed out and paramedics were called. Blood sugar was over 300. Upon evaluation in ED vital signs were stable. Troponin negative , EKG revealed sinus rhythm, no acute ischemic changes. Chest x-ray revealed no acute cardiopulmonary pathology. CT of the head revealed no acute intracranial hemorrhage or skull fracture. Laboratory work-up revealed no leukocytosis , stable hemoglobin, hematocrit and platelet count. Sodium 132. BUN 19, creatinine 1.4. Glucose 412. Anion gap 7 , potassium 3.9 , calcium 10.2, magnesium 1.7. Urinalysis revealed +1 protein, +4 glucose, no pyuria and few bacteria. In emergency department magnesium was replaced , patient received 2 L of fluids and admitted for further management. Allergies: Coded Allergies: No Known Allergies (Verified , 06/06/11) Medication History Scheduled Albuterol Sulfate* (Albuterol Sulfate Mdi*), 2 PUFF INH Q6H Amoxicillin* (Amoxil*), 500 MG ORAL THREE TIMES A DAY Aspirin* (Aspir-Low*), 81 MG ORAL DAILY, (Reported) Dexlansoprazole (Dexilant), 60 MG ORAL DAILY, (Reported) Furosemide* (Lasix*), 40 MG ORAL DAILY, (Reported) Gabapentin* (Gabapentin*), 800 MG ORAL TID, (Reported) Ibuprofen* (Motrin*), 600 MG PO Q8HR Insulin NPH Hum/Reg Insulin Hm (Novolin 70-30 Flexpen), 80 UNIT SQ BID, (Reported) Insuln Asp Prt/Insulin Aspart (Novolog Mix 70-30 Flexpen Syrn), 70 UNIT SQ ACBREAKFAST, (Reported) Insuln Asp Prt/Insulin Aspart (Novolog Mix 70-30 Flexpen Syrn), 70 UNIT SQ BEF ORE DINNER, (Reported) Linagliptin (Tradjenta), 5 MG PO DAILY, (Reported) Losartan/Hydrochlorothiazide (Losartan-Hctz 100-25 Mg Tab), 1 TAB ORAL DAILY, (Reported) Metformin Hcl* (Metformin Hcl*), 500 MG ORAL TWICE A DAY, (Reported) Rosuvastatin Calcium (Crestor), 0 ORAL BID, (Reported) Tizanidine Hcl* (Zanaflex*), 4 MG ORAL Q6HR, (Reported) Scheduled PRN Hydrocodone Bit/Acetaminophen 10-325* ([place] 10-325*), 1 TAB ORAL Q4H PRN for F or Pain, (Reported) Oxycodone/Acetaminophen 5-325* (Percocet 5-325 Mg Tablet*), 1 TAB ORAL Q6H PRN for For Pain Durable Medical Equipment Comp.stocking,Thigh,Short,Lrg (T.e.d. Anti-Embolism Stocking), EACH , (DME) Patient History Healthcare decision maker N Resuscitation status full code Advanced Directive on File Review of Systems Constitutional: Reports: weakness ENT: Reports: no symptoms Respiratory: Reports: no symptoms Cardiovascular: Reports: no symptoms Gastrointestinal: Reports: no symptoms Genitourinary: Reports: see HPI Musculoskeletal: Reports: no symptoms Skin: Reports: no symptoms Psychiatric: Reports: no symptoms Neurological: Reports: other - diab neuropathy ? seizure episode Endocrine: Reports: see HPI Hematologic/Lymphatic: Reports: no symptoms Physical Exam General Appearance: obese - A/A/O x 4 AA female in NAD Lines, tubes and drains: peripheral HEENT: normocephalic, atraumatic, anicteric, mucous membranes moist, PERRL Neck: supple Respiratory/Chest: lungs clear, no respiratory distress, no accessory muscle use Cardiovascular/Chest: normal peripheral pulses, normal rate - distant heart sounds Abdomen: normal bowel sounds, non tender, soft - obese Extremities: normal range of motion, no calf tenderness, normal capillary refill Skin Exam: normal pigmentation, warm/dry 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, no motor/sensory deficits, alert, oriented x 3, responsive Musculoskeletal: normal muscle bulk Last 24 Hour Vital Signs Date Time Temp Pulse Resp B/P (MAP) Pulse Ox O2 Delivery O2 Flow Rate FiO2 04/27/20 09:00 Room Air 04/27/20 08:00 97.9 86 18 103/67 (79) 96 04/27/20 04:00 98.2 84 18 117/72 (87) 94 04/27/20 00:50 Room Air 04/26/20 22:02 98.4 85 20 109/96 98 Room Air 04/26/20 16:58 93 19 Room Air 04/26/20 16:58 98.4 93 19 116/78 95 Room Air 04/26/20 16:44 98.4 93 19 116/78 (91) Room Air Intake and Output 04/26/20 04/27/20 19:00 07:00 Intake Total 480 ml Output Total 0 ml 600 ml Balance 0 ml -120 ml Intake Oral 480 ml Output Urine Total 0 ml 600 ml # Voids 2 Laboratory Tests Test 04/26/20 17:15 04/26/20 17:20 04/26/20 19:20 04/26/20 20:16 Lactic Acid Level 2.00 mmol/L (0.4-2.0) White Blood Count 7.8 K/UL (4.8-10.8) Red Blood Count 4.14 M/UL (4.20-5.40) L Hemoglobin 12.8 G/DL (12.0-16.0) Hematocrit 36.4 % (37.0-47.0) L Mean Corpuscular Volume 88 FL (80-99) Mean Corpuscular Hemoglobin 30.9 PG (27.0-31.0) Mean Corpuscular Hemoglobin Concent 35.2 G/DL (32.0-36.0) Red Cell Distribution Width 12.2 % (11.6-14.8) Platelet Count 271 K/UL (150-450) Mean Platelet Volume 7.3 FL (6.5-10.1) Neutrophils (%) (Auto) 60.8 % (45.0-75.0) Lymphocytes (%) (Auto) 30.8 % (20.0-45.0) Monocytes (%) (Auto) 5.2 % (1.0-10.0) Eosinophils (%) (Auto) 1.9 % (0.0-3.0) Basophils (%) (Auto) 1.3 % (0.0-2.0) Sodium Level 132 MMOL/L (136-145) L Potassium Level 3.9 MMOL/L (3.5-5.1) Chloride Level 97 MMOL/L (98-107) L Carbon Dioxide Level 28 MMOL/L (21-32) Anion Gap 7 mmol/L (5-15) Blood Urea Nitrogen 19 mg/dL (7-18) H Creatinine 1.4 MG/DL (0.55-1.30) H Estimat Glomerular Filtration Rate 46.1 mL/min (>60) Glucose Level 412 MG/DL (74-106) H Calcium Level 10.2 MG/DL (8.5-10.1) H Magnesium Level 1.7 MG/DL (1.8-2.4) L Total Bilirubin 0.7 MG/DL (0.2-1.0) Aspartate Amino Transf (AST/SGOT) 26 U/L (15-37) Alanine Aminotransferase (ALT/SGPT) 33 U/L (12-78) Alkaline Phosphatase 90 U/L (46-116) Troponin I 0.001 ng/mL (0.000-0.056) Total Protein 7.5 G/DL (6.4-8.2) Albumin 4.2 G/DL (3.4-5.0) Globulin 3.3 g/dL Albumin/Globulin Ratio 1.3 (1.0-2.7) Lipase 50 U/L (73-393) L Acetone Level Negative (NEGATIVE) Urine Color Pale yellow Urine Appearance Cloudy Urine pH 6 (4.5-8.0) Urine Specific [place] 1.010 (1.005-1.035) Urine Protein 1+ (NEGATIVE) H Urine Glucose (UA) 4+ (NEGATIVE) H Urine Ketones 2+ (NEGATIVE) H Urine Blood 1+ (NEGATIVE) H Urine Nitrite Negative (NEGATIVE) Urine Bilirubin Negative (NEGATIVE) Urine Urobilinogen Normal MG/DL (0.0-1.0) Urine Leukocyte Esterase Negative (NEGATIVE) Urine RBC 2-4 /HPF (0 - 2) H Urine WBC 0-2 /HPF (0 - 2) Urine Squamous Epithelial Cells Many /LPF (NONE/OCC) H Urine Bacteria Few /HPF (NONE) POC Whole Blood Glucose 237 MG/DL (74-106) H Test 04/27/20 05:12 04/27/20 05:15 POC Whole Blood Glucose 349 MG/DL (74-106) H White Blood Count 7.4 K/UL (4.8-10.8) Red Blood Count 3.89 M/UL (4.20-5.40) L Hemoglobin 11.9 G/DL (12.0-16.0) L Hematocrit 33.1 % (37.0-47.0) L Mean Corpuscular Volume 85 FL (80-99) Mean Corpuscular Hemoglobin 30.5 PG (27.0-31.0) Mean Corpuscular Hemoglobin Concent 35.9 G/DL (32.0-36.0) Red Cell Distribution Width 11.8 % (11.6-14.8) Platelet Count 251 K/UL (150-450) Mean Platelet Volume 7.0 FL (6.5-10.1) Neutrophils (%) (Auto) 53.9 % (45.0-75.0) Lymphocytes (%) (Auto) 36.1 % (20.0-45.0) Monocytes (%) (Auto) 6.1 % (1.0-10.0) Eosinophils (%) (Auto) 2.9 % (0.0-3.0) Basophils (%) (Auto) 1.1 % (0.0-2.0) Sodium Level 135 MMOL/L (136-145) L Potassium Level 3.8 MMOL/L (3.5-5.1) Chloride Level 100 MMOL/L (98-107) Carbon Dioxide Level 29 MMOL/L (21-32) Anion Gap 6 mmol/L (5-15) Blood Urea Nitrogen 16 mg/dL (7-18) Creatinine 1.2 MG/DL (0.55-1.30) Estimat Glomerular Filtration Rate 54.9 mL/min (>60) Glucose Level 330 MG/DL (74-106) H Hemoglobin A1c 11.2 % (4.3-6.0) H Calcium Level 9.5 MG/DL (8.5-10.1) Height (Feet): 6 Height (Inches): 1.00 Weight (Pounds): 229 Medications Current Medications Medications (Trade) Dose Ordered Sig/Kassie Route PRN Reason Start Time Stop Time Status Last Admin Dose Admin Acetaminophen (Tylenol) 650 mg Q6H PRN ORAL MILD PAIN 04/26/20 23:45 05/26/20 23:44 04/27/20 01:48 Acetaminophen (Tylenol) 650 mg Q6H PRN ORAL Temp >100.5 04/26/20 23:45 05/26/20 23:44 Acetaminophen/ Hydrocodone Bitart ([place] 5/325) 1 tab Q6H PRN ORAL Moderate pain 04/26/20 23:45 05/03/20 23:44 Dextrose (Dextrose 50%) 25 ml Q30M PRN IV Hypoglycemia 04/27/20 10:00 07/26/20 09:59 Dextrose (Dextrose 50%) 50 ml Q30M PRN IV Hypoglycemia 04/27/20 10:00 07/26/20 09:59 Enoxaparin Sodium (Lovenox) 40 mg DAILY SUBQ 04/27/20 09:00 07/26/20 08:59 04/27/20 08:09 Insulin Aspart (NovoLOG Mix 70/ 30) 80 units PRE BFAST AND DINNER SUBQ 04/27/20 16:30 07/26/20 16:29 Insulin Aspart (NovoLOG) BEFORE MEALS AND HS SUBQ 04/27/20 11:30 07/26/20 11:29 Insulin Aspart (NovoLOG) 30 units ONCE SUBQ 04/27/20 10:00 04/27/20 11:00 Pantoprazole (Protonix) 40 mg DAILY ORAL 04/27/20 09:00 05/27/20 08:59 04/27/20 08:07 Assessment/Plan Assessment/Plan: ASSESSMENT Diabetes mellitus with hyperglycemia/ Diabetes mellitus [id number] Acute metabolic encephalopathy probably related to hyperglycemia -resolved Obesity Possible MARQUIS HAIDER due to mild dehydration -resolved Diabetic neuropathy Electrolyte imbalance hypomagnesemia, hypercalcemia, hyponatremia Possible seizure episode HTN HLD PLAN OF CARE MS floor s/p 2 L IVF BS management with LA Levemir and SSI endo eval and recs re further antiglycemic regimen HgbA1c -11.2, clearly not at goal diabetic diet and diabetic teaching dietary eval O2 prn keep sat > 90% recommend PSN as OP monitor lytes, renal parameters patient likely had mild dehydration, Ca down and Na up both imbalances likely due to dehydration patient apparently had an episode of seizure as per daughter seizure precautions consider EEG, -> per attending discretion BP management, daughter is bringing the list of meds; BP currently stable GI prophylaxis supportive care thank you for a consult! case discussed and evaluated by supervising physician Gerard Parnell MD 04/27/20 1142: History of Present Illness General Chief Complaint: BS OOC, LOC Present Illness Allergies: Coded Allergies: No Known Allergies (Verified , 06/06/11) Medication History Scheduled Albuterol Sulfate* (Albuterol Sulfate Mdi*), 2 PUFF INH Q6H Amoxicillin* (Amoxil*), 500 MG ORAL THREE TIMES A DAY Aspirin* (Aspir-Low*), 81 MG ORAL DAILY, (Reported) Dexlansoprazole (Dexilant), 60 MG ORAL DAILY, (Reported) Furosemide* (Lasix*), 40 MG ORAL DAILY, (Reported) Gabapentin* (Gabapentin*), 800 MG ORAL TID, (Reported) Ibuprofen* (Motrin*), 600 MG PO Q8HR Insulin NPH Hum/Reg Insulin Hm (Novolin 70-30 Flexpen), 80 UNIT SQ BID, (Reported) Insuln Asp Prt/Insulin Aspart (Novolog Mix 70-30 Flexpen Syrn), 70 UNIT SQ ACBREAKFAST, (Reported) Insuln Asp Prt/Insulin Aspart (Novolog Mix 70-30 Flexpen Syrn), 70 UNIT SQ BEFORE DINNER, (Reported) Linagliptin (Tradjenta), 5 MG PO DAILY, (Reported) Losartan/Hydrochlorothiazide (Losartan-Hctz 100-25 Mg Tab), 1 TAB ORAL DAILY, (Reported) Metformin Hcl* (Metformin Hcl*), 500 MG ORAL TWICE A DAY, (Reported) Rosuvastatin Calcium (Crestor), 0 ORAL BID, (Reported) Tizanidine Hcl* (Zanaflex*), 4 MG ORAL Q6HR, (Reported) Scheduled PRN Hydrocodone Bit/Acetaminophen 10-325* ([place] 10-325*), 1 TAB ORAL Q4H PRN for For Pain, (Reported) Oxycodone/Acetaminophen 5-325* (Percocet 5-325 Mg Tablet*), 1 TAB ORAL Q6H PRN for For Pain Durable Medical Equipment Comp.stocking,Thigh,Short,Lrg (T.e.d. Anti-Embolism Stocking), EACH [facility], (DME) Assessment/Plan Assessment/Plan: Patient seen and examined with [facility] COORDINATOR. Agree with above A&P as it reflects our joint deliberations. Consider EEG and neuro eval Patsy Sherman NP Apr 27, 2020 10:23 Gerard Parnell MD Apr 27, 2020 11:42
[2020-04-27] MEDS ORDERED: TIZANIDINE HCL4 MG ORAL (11:18)
[2020-04-27] MEDS ORDERED: FUROSEMIDE40 MG ORAL (11:18)
[2020-04-27] MEDS ORDERED: NOVOLIN 70100 UNIT/2 SQ (11:25)
[2020-04-27 12:00] VITALS: BP 120/74
[2020-04-27] MEDS: NovoLOG Insulin Flexpen SUBQ SCH ×3 (13:39→21:26)
--- NOTE | 2020-04-27 15:15 | History and Physical Report ---
DATE OF ADMISSION: 04/26/2020 SOURCE OF INFORMATION: The patient and EMR. HISTORY OF PRESENT ILLNESS: The patient is a pleasant 64-year-old female with a history of uncontrolled diabetes, who presented with the feeling dizzy, increase in urination after there was a change made as an outpatient in her insulin usage. At the time of evaluation, the patient denies chest pain or shortness of breath. No nausea. No vomitus. No diarrhea. Positive for dizziness. PAST MEDICAL AND SURGICAL HISTORY: Diabetes, GERD, hypertension. MEDICATIONS: Current hospital medications including sliding scale insulin, acetaminophen, Lovenox. ALLERGIES: NKDA. SOCIAL HISTORY: The patient lives by herself. The patient has two children. Denies history of illicit drug abuse, smoking, or alcohol abuse. FAMILY HISTORY: Reviewed and noncontributory. REVIEW OF SYSTEMS: All 12 elements of review of systems reviewed, pertinent positive and negative as above. PHYSICAL EXAMINATION: VITAL SIGNS: Blood pressure 110/80, pulse oximetry 98% on room air, pulse rate 85, temperature 98.4, respiratory rate 12. HEAD AND NECK: Atraumatic and normocephalic. CHEST: Clear to auscultation. HEART: S1, S2. Regular rate and rhythm. ABDOMEN: Soft. No organomegaly. MUSCULOSKELETAL: No gross focal motor deficit. NEUROLOGIC: Awake, alert, oriented x3. DIAGNOSTIC AND LABORATORY DATA: Head CT scan, dated April 26, [address] Chest x-ray is negative. Labs, dated April 26, 2020 reviewed shows sodium 132, creatinine 1.4. ASSESSMENT AND PLAN: 1. Acute metabolic encephalopathy. 2. Hyperosmolar nonketotic acidosis. 3. Uncontrolled diabetes. 4. Hypertension. 5. Osteoarthritis multiple joints. 6. Acute renal failure. 7. Hyponatremia. 8. Hypomagnesemia. COMMENTS: Time of this dictation does not reflect the actual time of encounter. Kari Ng M.D. DR: BRYNN JOB#: [id number] CC:
[2020-04-27 16:00] VITALS: BP 112/68
--- NOTE | 2020-04-27 16:45 | Consultation ---
DATE OF CONSULTATION: 04/27/2020 ENDOCRINOLOGY CONSULTATION CONSULTING PHYSICIAN: Sixto Gibson MD. REFERRING PHYSICIAN: Kari Ng MD. REASON FOR CONSULTATION: Diabetes management. HISTORY OF PRESENT ILLNESS: The patient is a 64-year-old black female with history of diabetes on high-dose insulin 70/30 at home, followed by Dr. Wright as an outpatient. She was diagnosed with diabetes in 2001 and she is on insulin 70/30, monotherapy. She is not on any oral agents. The patient presented to the hospital with dizziness and feeling out of it and weak after the dosage of insulin has been changed in the past few days. Upon presentation to the emergency department, the patient's glucose was very high at 412 without any evidence of ketoacidosis. She was given insulin IV push and admitted to the floor for observation and treatment. I was called to manage diabetes. PAST MEDICAL HISTORY: 1. Diabetes, out of control. 2. Obesity. 3. Hypertension. MEDICATIONS: Reviewed and reconciled. SOCIAL HISTORY: No smoking, alcohol, or drug use. Lives at home. ALLERGIES: No known drug allergies. REVIEW OF SYSTEMS: A 12-point review of systems was conducted and pertinent positives and negatives mentioned in the present illness. LABORATORY VALUES: Sodium 135, potassium 3.8, chloride 100, bicarb 29, BUN 16, creatinine 1.2, glucose of 330. Hemoglobin A1c of 11.2. PHYSICAL EXAMINATION: GENERAL: She is awake and alert. VITAL SIGNS: Blood pressure 117/72, heart rate 84, temperature 98.2. HEENT: Pupils are equal and reactive to light. Sclerae anicteric. NECK: No JVD. No thyromegaly. No bruit. LUNGS: Clear. HEART: Regular rate and rhythm. ABDOMEN: Positive bowel sounds. EXTREMITIES: No clubbing, cyanosis, or edema. DIAGNOSES: 1. Diabetes, out of control with extremely elevated hemoglobin A1c. 2. Dizziness. 3. Hypertension. 4. Morbid obesity. PLAN: The patient is not able to give herself more than twice daily insulin injections at home. Therefore, we have to stick with insulin 70/30. I will start with 70 units before breakfast and dinner, though we are starting with dinner today. With lunch, we will give her 30 units of NovoLog with sliding scale. Further adjustment will be done according to blood glucose values. I will follow the patient closely during hospital stay. Thank you, Dr. Ng, for the courtesy of this consultation. Sixto Gibson M.D. DR: CASSANDRA JOB#: [id number] CC: LUCIO
--- NOTE | 2020-04-27 18:00 | Consultation ---
DATE OF CONSULTATION: 04/27/2020 CARDIOLOGY CONSULTATION CONSULTING PHYSICIAN: Huber Keys MD REFERRING PHYSICIAN: Kari Ng MD REASON FOR CONSULTATION: Management of presyncope. HISTORY OF PRESENT ILLNESS: The patient is a very unfortunate 64-year-old female with prior history of type 2 diabetes mellitus insulin-dependent, who was brought in for management of possible hyperglycemia. Apparently, the patient's insulin was recently changed and the patient started to feel dizziness and lightheadedness. According to the patient's daughter, the patient on April 26 had an episode of near-faint, and paramedics were called. Insulin was given for a BS >300. The patient apparently also had a few seconds of seizure activities. It was associated with loss of urinary continence. She did not have any chest pain or shortness of breath at the time of arrival to this hospital. Initial blood pressure in the emergency department was 116/78 mmHg and heart rate was 93. A 12-lead electrocardiogram showed sinus rhythm with no acute ischemic changes. The patient had chest x-ray, which showed no acute cardiopulmonary disease. CT of head with no contrast showed no acute intracranial hemorrhage or cortical ischemia. There were, however, some chronic small ischemic changes evident. The patient was admitted to Med/Surg for management of presyncope/syncope. Cardiology consultation was made to address cardiac etiology and rule out cardiac etiology. PAST MEDICAL HISTORY: Diabetes mellitus, hypertension, obesity, peripheral neuropathy, and prior history of presyncope. PAST SURGICAL HISTORY: None. FAMILY HISTORY: No premature coronary artery disease in the first-degree relatives. ALLERGIES: No known drug allergies. MEDICATIONS: List of medications at home includes albuterol, amoxicillin, aspirin 81 mg p.o. daily, Dexilant, gabapentin, hydrocodone and acetaminophen, ibuprofen, insulin NovoLog, Tradjenta, losartan and hydrochlorothiazide 100/25 one tablet daily, metformin, oxycodone and acetaminophen, and Crestor 10 mg p.o. nightly. REVIEW OF SYSTEMS: A 12-system review done and essentially negative except what was mentioned in history of present illness. PHYSICAL EXAMINATION: VITAL SIGNS: Blood pressure was 116/78, pulse of 93, respirations 19, temperature 98.4 degrees Fahrenheit, O2 saturation 95% on room air. GENERAL: The patient is a very unfortunate 64-year-old lady in no apparent respiratory distress. Alert and oriented x4. HEENT: Atraumatic and normocephalic. Anicteric. Pupils are equal, round, and reactive to light and accommodation. Extraocular muscles intact. NECK: JVP less than 5 cm. No carotid bruit. Carotid upstroke is 2+ bilaterally. CARDIOVASCULAR: Normal S1, S2. Regular rate and rhythm. No murmurs, gallops, or rubs. PMI is at fourth intercostal space in midclavicular line. LUNGS: Clear to auscultation bilaterally. ABDOMEN: Soft, nontender, nondistended. No hepatosplenomegaly. Positive bowel sounds. EXTREMITIES: No evidence of edema, clubbing, or cyanosis. LABORATORY FINDINGS: WBC 7.8, hemoglobin 12.8, hematocrit 36.4, and platelet count is 271,000. Sodium was 132, potassium was 3.9, chloride 97, bicarbonate 27, BUN 19, creatinine 1.4, glucose 412, calcium is 10.2, magnesium 1.7. Troponin I level 0.001. Chest x-ray, no acute cardiopulmonary disease. CT of head, no acute intracranial hemorrhage or skull fracture. ASSESSMENT AND PLAN: The patient is a very unfortunate 64-year-old female seen in Cardiology consultation. 1. Presyncope/syncope. This could be due to hyperglycemia event and resultant volume loss as well as electrolyte depletion. We would like to obtain 2D echocardiography for assessment of LV systolic and diastolic function to address hemodynamics more in detail. Further therapeutic and diagnostic decision will be based on the results of 2D echocardiography. 2. History of hypertension. Blood pressure is fairly controlled in this admission on no treatment. They will continue to observe blood pressure throughout this hospitalization. Of note, in the outpatient setting, the patient was taking losartan and hydrochlorothiazide in combination and I would like to place a hold on that for now. 3. History of diabetes mellitus, uncontrolled. 4. Obesity. 5. Diabetic neuropathy. 6. Normal troponin I level. We will like to obtain another level to rule out acute myocardial infarction. I would like to thank Dr. Ng for the courtesy of this consultation. Huber Keys M.D. DR: Ray JOB#: [id number] CC: LUCIO
[2020-04-27 20:00] VITALS: BP 109/63
[2020-04-27] MEDS ORDERED: Levemir Flexpen SUBQ SCH (21:00)
[2020-04-27] MEDS: Atorvastatin 20mg tab ORAL SCH (21:25)
[2020-04-28] VITALS: BP 113/65
[2020-04-28 04:00] VITALS: BP 114/63
[2020-04-28 06:12] LABS: BASOPHILS % (AUTO) 0.7 % (0.0-2.0); EOSINOPHILS % (AUTO) 3.2 % (0.0-3.0); HEMATOCRIT 37.1 % (37.0-47.0); HEMOGLOBIN 13.1 G/DL (12.0-16.0); LYMPHOCYTES % (AUTO) 35.6 % (20.0-45.0); MEAN CORPUSCULAR VOLUME 86 FL (80-99); MONOCYTES % (AUTO) 5.5 % (1.0-10.0); PLATELET COUNT 281 K/UL (150-450); RED BLOOD COUNT 4.33 M/UL (4.20-5.40); WHITE BLOOD COUNT 8.3 K/UL (4.8-10.8)
[2020-04-28] MEDS: NovoLOG Insulin Flexpen SUBQ SCH ×4 (06:13→21:13)
[2020-04-28 06:37] LABS: ALANINE AMINOTRANSFERASE 39 U/L (12-78); ALBUMIN/GLOBULIN RATIO 1.2 (1.0-2.7); ALKALINE PHOSPHATASE 67 U/L (46-116); ANION GAP 8 mmol/L (5-15); ASPARTATE AMINO TRANSFERASE 35 U/L (15-37); BILIRUBIN,TOTAL 0.8 MG/DL (0.2-1.0); BLOOD UREA NITROGEN 13 mg/dL (7-18); CALCIUM 9.4 MG/DL (8.5-10.1); CARBON DIOXIDE 28 MMOL/L (21-32); CHLORIDE 100 MMOL/L (98-107); CHOLESTEROL 104 MG/DL (< 200); CREATININE 1.2 MG/DL (0.55-1.30); FERRITIN 262 NG/ML (8-388); GAMMA GLUTAMYL TRANSPEPTIDASE 39 U/L (5-85); HDL CHOLESTEROL 40 MG/DL (40-60); PHOSPHORUS 4.2 MG/DL (2.5-4.9); POTASSIUM 3.8 MMOL/L (3.5-5.1); SODIUM 136 MMOL/L (136-145); TRIGLYCERIDES 102 MG/DL (30-150)
[2020-04-28 06:46] LABS: % IRON SATURATION 25 % (15-50); IRON 79 ug/dL (50-175); TOTAL IRON BINDING CAPACITY 314 ug/dL (250-450)
[2020-04-28 08:00] VITALS: BP 123/80
[2020-04-28] MEDS: Aspirin Baby 81mg ORAL SCH (08:48)
[2020-04-28] MEDS: Enoxaparin 40mg Inj SUBQ SCH (08:48)
--- NOTE | 2020-04-28 08:48 | General Progress Note ---
Subjective Allergies: Coded Allergies: No Known Allergies (Verified , 06/06/11) Objective Last 24 Hour Vital Signs Date Time Temp Pulse Resp B/P (MAP) Pulse Ox O2 Delivery O2 Flow Rate FiO2 04/28/20 04:00 98.0 87 16 114/63 (80) 96 04/28/20 00:10 110 04/28/20 00:05 87 04/28/20 00:00 85 04/28/20 00:00 97.9 85 18 113/65 (81) 96 04/27/20 21:00 Room Air 04/27/20 20:00 97.8 81 16 109/63 (78) 99 04/27/20 16:10 78 04/27/20 16:05 78 04/27/20 16:00 98.1 91 18 112/68 (83) 98 04/27/20 16:00 75 04/27/20 12:00 97.6 86 18 120/74 (89) 96 04/27/20 09:00 Room Air Intake and Output 04/27/20 04/28/20 19:00 07:00 Intake Total 600 ml 480 ml Balance 600 ml 480 ml Intake Oral 600 ml 480 ml # Voids 3 1 Laboratory Tests 04/27/20 10:36: POC Whole Blood Glucose 385H 04/27/20 12:21: POC Whole Blood Glucose 337H 04/27/20 13:36: POC Whole Blood Glucose 374H 04/27/20 16:32: POC Whole Blood Glucose 255H 04/27/20 18:24: POC Whole Blood Glucose 295H 04/27/20 18:26: POC Whole Blood Glucose 312H 04/27/20 18:58: POC Whole Blood Glucose 301H 04/27/20 21:23: POC Whole Blood Glucose 179H 04/28/20 05:00: White Blood Count 8.3, Red Blood Count 4.33, Hemoglobin 13.1, Hematocrit 37.1, Mean Corpuscular Volume 86, Mean Corpuscular Hemoglobin 30.2, Mean Corpuscular Hemoglobin Concent 35.2, Red Cell Distribution Width 12.0, Platelet Count 281, Mean Platelet Volume 7.4, Neutrophils (%) (Auto) 55.0, Lymphocytes (%) (Auto) 35.6, Monocytes (%) (Auto) 5.5, Eosinophils (%) (Auto) 3.2H, Basophils (%) (Auto) 0.7, Sodium Level 136, Potassium Level 3.8, Chloride Level 100, Carbon Dioxide Level 28, Anion Gap 8, Blood Urea Nitrogen 13, Creatinine 1.2, Estimat Glomerular Filtration Rate 54.9, Glucose Level 211#H, Uric Acid 5.4, Calcium Level 9.4, Phosphorus Level 4.2, Magnesium Level 1.8, Iron Level 79, Total Iron Binding Capacity 314, Percent Iron Saturation 25, Unsaturated Iron Binding 235, Ferritin 262, Total Bilirubin 0.8, Gamma Glutamyl Transpeptidase 39, Aspartate Amino Transf (AST/SGOT) 35, Alanine Aminotransferase (ALT/SGPT) 39, Alkaline Ph osphatase 67, C-Reactive Protein, Quantitative 0.5, Pro-B-Type Natriuretic Peptide 13, Total Protein 7.3, Albumin 4.0, Globulin 3.3, Albumin/Globulin Ratio 1.2, Triglycerides Level 102, Cholesterol Level 104, LDL Cholesterol 48, HDL Cholesterol 40, Cholesterol/HDL Ratio 2.6L, Vitamin B12 Level 689, Folate 38.3, Thyroid Stimulating Hormone (TSH) 2.961 04/28/20 05:06: POC Whole Blood Glucose 220H Height (Feet): 6 Height (Inches): 1.00 Weight (Pounds): 229 Assessment/Plan Assessment/Plan: S: I am better O: episode of change of mental status last nitght PHYSICAL EXAMINATION:HEAD AND NECK: Atraumatic and normocephalic. CHEST: Clear to auscultation.HEART: S1, S2. Regular rate and rhythm. ABDOMEN: Soft. No organomegaly.MUSCULOSKELETAL: No gross focal motor deficit. NEUROLOGIC: Awake, alert, oriented x3. DIAGNOSTIC AND LABORATORY DATA: Head CT scan, dated April 26, [address] Chest x-ray is negative. Labs, dated April 27, 2020 reviewed ASSESSMENT AND PLAN: 1. Acute metabolic encephalopathy. 2. Hyperosmolar nonketotic acidosis. 3. Uncontrolled diabetes. 4. Hypertension. 5. Osteoarthritis multiple joints. 6. Acute renal failure. 7. Hyponatremia. 8. Hypomagnesemia. Plan: notes from nephro Endo have been reviewed will optimize insulin dosage DC Kari Hollis MD Apr 28, 2020 08:48
[2020-04-28] MEDS: Furosemide 40mg tab ORAL SCH (08:50)
[2020-04-28] MEDS: Losartan 50mg tab ORAL SCH (08:50)
--- NOTE | 2020-04-28 09:55 | Pulmonology Progress Note ---
Patsy Sherman [employer] 04/28/20 0955: Subjective Allergies: Coded Allergies: No Known Allergies (Verified , 06/06/11) Subjective BS better pulse ox stable on RA no signs of resp distress, no SOB, no CP reports not sleeping well in the hospital and COULTER, not sure about snoring ; never had a sleep study done Objective Last 24 Hour Vital Signs Date Time Temp Pulse Resp B/P (MAP) Pulse Ox O2 Delivery O2 Flow Rate FiO2 04/28/20 08:50 137/89 04/28/20 08:10 134 04/28/20 08:05 98 04/28/20 08:00 98.3 102 21 123/80 (94) 96 04/28/20 08:00 102 04/28/20 04:00 98.0 87 16 114/63 (80) 96 04/28/20 00:10 110 04/28/20 00:05 87 04/28/20 00:00 85 04/28/20 00:00 97.9 85 18 113/65 (81) 96 04/27/20 21:00 Room Air 04/27/20 20:00 97.8 81 16 109/63 (78) 99 04/27/20 16:10 78 04/27/20 16:05 78 04/27/20 16:00 98.1 91 18 112/68 (83) 98 04/27/20 16:00 75 04/27/20 12:00 97.6 86 18 120/74 (89) 96 Intake and Output 04/27/20 04/28/20 19:00 07:00 Intake Total 600 ml 480 ml Balance 600 ml 480 ml Intake Oral 600 ml 480 ml # Voids 3 1 Objective General Appearance: obese - A/A/O x 4 AA female in NAD Lines, tubes and drains: peripheral HEENT: normocephalic, atraumatic, anicteric, mucous membranes moist, PERRL Neck: supple Respiratory/Chest: lungs clear, no respiratory distress, no accessory muscle use Cardiovascular/Chest: normal peripheral pulses, normal rate - distant heart sounds Abdomen: normal bowel sounds, non tender, soft - obese Extremities: normal range of motion, no calf tenderness, normal capillary refill Skin Exam: normal pigmentation, warm/dry Neurologic: process tank tender II-XII grossly normal, no motor/sensory deficits, alert, oriented x 3, responsive Musculoskeletal: normal muscle bulk Microbiology Date/Time Source Procedure Growth Status 04/26/20 17:15 Blood Blood Culture - Preliminary NO GROWTH AFTER 24 HOURS Resulted 04/26/20 17:15 Blood Blood Culture - Preliminary NO GROWTH AFTER 24 HOURS Resulted Laboratory Tests 04/27/20 10:36: POC Whole Blood Glucose 385H 04/27/20 12:21: POC Whole Blood Glucose 337H 04/27/20 13:36: POC Whole Blood Glucose 374H 04/27/20 16:32: POC Whole Blood Glucose 255H 04/27/20 18:24: POC Whole Blood Glucose 295H 04/27/20 18:26: POC Whole Blood Glucose 312H 04/27/20 18:58: POC Whole Blood Glucose 301H 04/27/20 21:23: POC Whole Blood Glucose 179H 04/28/20 05:00: White Blood Count 8.3, Red Blood Count 4.33, Hemoglobin 13.1, Hematocrit 37.1, Mean Corpuscular Volume 86, Mean Corpuscular Hemoglobin 30.2, Mean Corpuscular Hemoglobin Concent 35.2, Red Cell Distribution Width 12.0, Platelet Count 281, Mean Platelet Volume 7.4, Neutrophils (%) (Auto) 55.0, Lymphocytes (%) (Auto) 35.6, Monocytes (%) (Auto) 5.5, Eosinophils (%) (Auto) 3.2H, Basophils (%) (Auto) 0.7, Sodium Level 136, Potassium Level 3.8, Chloride Level 100, Carbon Dioxide Level 28, Anion Gap 8, Blood Urea Nitrogen 13, Creatinine 1.2, Estimat Glomerular Filtration Rate 54.9, Glucose Level 211#H, Uric Acid 5.4, Calcium Level 9.4, Phosphorus Level 4.2, Magnesium Level 1.8, Iron Level 79, Total Iron Binding Capacity 314, Percent Iron Saturation 25, Unsaturated Iron Binding 235, Ferritin 262, Total Bilirubin 0.8, Gamma Glutamyl Transpeptidase 39, Aspartate Amino Transf (AST/SGOT) 35, Alanine Aminotransferase (ALT/SGPT) 39, Alkaline Phosphatase 67, C-Reactive Protein, Quantitative 0.5, Pro-B-Type Natriuretic Peptide 13, Total Protein 7.3, Albumin 4.0, Globulin 3.3, Albumin/Globulin Ratio 1.2, Triglycerides Level 102, Cholesterol Level 104, LDL Cholesterol 48, HDL Cholesterol 40, Cholesterol/HDL Ratio 2.6L, Vitamin B12 Level 689, Folate 38.3, Thyroid Stimulating Hormone (TSH) 2.961 04/28/20 05:06: POC Whole Blood Glucose 220H Current Medications Medications (Trade) Dose Ordered Sig/Kassie Route PRN Reason Start Time Stop Time Status Last Admin Dose Admin Acetaminophen (Tylenol) 650 mg Q6H PRN ORAL MILD PAIN 04/26/20 23:45 05/26/20 23:44 04/27/20 01:48 Acetaminophen (Tylenol) 650 mg Q6H PRN ORAL Temp >100.5 04/26/20 23:45 05/26/20 23:44 Acetaminophen/ Hydrocodone Bitart ([place] 5/325) 1 tab Q6H PRN ORAL Moderate pain 04/26/20 23:45 05/03/20 23:44 Aspirin (ASA) 81 mg DAILY ORAL 04/28/20 09:00 06/12/20 08:59 04/28/20 08:48 Atorvastatin Calcium (Lipitor) 40 mg BEDTIME ORAL 04/27/20 21:00 07/26/20 20:59 04/27/20 21:25 Dextrose (Dextrose 50%) 25 ml Q30M PRN IV Hypoglycemia 04/27/20 10:00 07/26/20 09:59 Dextrose (Dextrose 50%) 50 ml Q30M PRN IV Hypoglycemia 04/27/20 10:00 07/26/20 09:59 Enoxaparin Sodium (Lovenox) 40 mg DAILY SUBQ 04/27/20 09:00 07/26/20 08:59 04/28/20 08:48 Furosemide (Lasix) 40 mg DAILY ORAL 04/28/20 09:00 05/28/20 08:59 04/28/20 08:50 Insulin Aspart (NovoLOG Mix 70/ 30) 80 units PRE BFAST AND DINNER SUBQ 04/27/20 16:30 07/26/20 16:29 04/28/20 06:13 Insulin Aspart (NovoLOG) BEFORE MEALS AND HS SUBQ 04/27/20 11:30 07/26/20 11:29 04/28/20 06:13 Losartan Potassium (Cozaar) 100 mg DAILY ORAL 04/28/20 09:00 05/28/20 08:59 04/28/20 08:50 Pantoprazole (Protonix) 40 mg DAILY ORAL 04/27/20 09:00 05/27/20 08:59 04/28/20 08:48 Assessment/Plan Assessment/Plan ASSESSMENT Diabetes mellitus with hyperglycemia Diabetes mellitus [id number] Acute metabolic encephalopathy , probably related to hyperglycemia -resolved Presyncope/syncope-likely due to abnormal BS Obesity Possible MARQUIS HAIDER due to mild dehydration -resolved Diabetic neuropathy Electrolyte imbalance hypomagnesemia, hypercalcemia, hyponatremia Possible seizure episode HTN HLD PLAN OF CARE MS floor s/p 2 L IVF BS management as per endo recommendations, BS improving HgbA1c -11.2, clearly not at goal diabetic diet and diabetic teaching dietary eval re diet O2 prn keep sat > 90% recommend PSN as OP ECHO pending orthostatic VS no change monitor lytes, renal parameters patient likely had mild dehydration, Ca down and Na up both imbalances likely due to dehydration patient possibly had an episode of seizure as per daughter seizure precautions consider EEG, -> per attending discretion Neurontin initially resumed by attending was dc ( pt on high dose 800 mg tid along with Zanaflex, and after taking neurontin 04/27 was out for a short period of time - per nurse report) BP management with current regimen , BP stable restarted on Lasix, monitor volumes, avoid dehydration GI prophylaxis supportive care dc plan per attending thank you for a consult! case discussed and evaluated by supervising physician Gerard Parnell MD 04/29/20 1459: Subjective Allergies: Coded Allergies: No Known Allergies (Verified , 06/06/11) Assessment/Plan Assessment/Plan Patient seen and examined with [employer]. Agree with above A&P as it reflects our joint deliberations. Patsy Sherman NP Apr 28, 2020 09:55 Gerard Parnell MD Apr 29, 2020 14:59
[2020-04-28 12:00] VITALS: BP 121/67
--- NOTE | 2020-04-28 13:42 | Cardiology Report ---
APPROVED REPORT EXAM: Two-dimensional and M-mode echocardiogram with Doppler and color Doppler. INDICATION Altered Loc M-Mode DIMENSIONS IVSd0.8 (0.7-1.1cm)Left Atrium (MM)4.3 (1.6-4.0cm) LVDd5.6 (3.5-5.6cm)Aortic Root3.5 (2.0-3.7cm) PWd1.0 (0.7-1.1cm)Aortic Cusp Exc.1.7 (1.5-2.0cm) IVSs1.3 cmEPSS0.3 (>1.0cm) LVDs3.9 (2.5-4.0cm) PWs1.3 cm <Conclusion> Technically difficult study due to poor acoustical windows and pt's body habitus. Normal left ventricular chamber size. This study precludes full analysis of LV wall motion and EF. Left ventricular ejection fraction estimated to be normal. No evidence of left ventricular hypertrophy. Anterior Echo-free space, may be due to pericardial fat or effusion. All other cardiac chamber sizes are within normal limits. Focal aortic valve sclerosis with adequate cusp excursion. Thickened mitral valve leaflets with normal excursion. Mitral annulus and aortic root calcification. Pulmonic valve not visualized. Normal tricuspid valve structure. Subcostal views are not obtainable due to pt's big belly. A color flow and spectral Doppler study was performed and revealed: Trace aortic regurgitation. Trace mitral regurgitation. Mitral diastolic velocities suggest reduced left ventricular relaxation c/w mild LV diastolic dysfunction (Grade I ). Trace tricuspid regurgitation. Tricuspid systolic velocities suggests peak right ventricular systolic pressure of 10 mmHg.
--- NOTE | 2020-04-28 13:55 | General Progress Note ---
Subjective Allergies: Coded Allergies: No Known Allergies (Verified , 06/06/11) All Systems: reviewed and negative except above Subjective events noted glucose values improved Item Value Date Time Bedside Blood Glucose 200 mg/dl H 04/28/20 1236 Bedside Blood Glucose 220 mg/dl H 04/28/20 0613 Bedside Blood Glucose 179 mg/dl H 04/27/20 2126 Bedside Blood Glucose 337 mg/dl H 04/27/20 1339 Objective Last 24 Hour Vital Signs Date Time Temp Pulse Resp B/P (MAP) Pulse Ox O2 Delivery O2 Flow Rate FiO2 04/28/20 12:00 98.0 83 18 121/67 (85) 94 04/28/20 09:00 Room Air 04/28/20 08:50 137/89 04/28/20 08:10 134 04/28/20 08:05 98 04/28/20 08:00 98.3 102 21 123/80 (94) 96 04/28/20 08:00 102 04/28/20 04:00 98.0 87 16 114/63 (80) 96 04/28/20 00:10 110 04/28/20 00:05 87 04/28/20 00:00 85 04/28/20 00:00 97.9 85 18 113/65 (81) 96 04/27/20 21:00 Room Air 04/27/20 20:00 97.8 81 16 109/63 (78) 99 04/27/20 16:10 78 04/27/20 16:05 78 04/27/20 16:00 98.1 91 18 112/68 (83) 98 04/27/20 16:00 75 Intake and Output 04/27/20 04/28/20 19:00 07:00 Intake Total 600 ml 480 ml Balance 600 ml 480 ml Intake Oral 600 ml 480 ml # Voids 3 1 Laboratory Tests 04/27/20 16:32: POC Whole Blood Glucose 255H 04/27/20 18:24: POC Whole Blood Glucose 295H 04/27/20 18:26: POC Whole Blood Glucose 312H 04/27/20 18:58: POC Whole Blood Glucose 301H 04/27/20 21:23: POC Whole Blood Glucose 179H 04/28/20 05:00: White Blood Count 8.3, Red Blood Count 4.33, Hemoglobin 13.1, Hematocrit 37.1, Mean Corpuscular Volume 86, Mean Corpuscular Hemoglobin 30.2, Mean Corpuscular Hemoglobin Concent 35.2, Red Cell Distribution Width 12.0, Platelet Count 281, Mean Platelet Volume 7.4, Neutrophils (%) (Auto) 55.0, Lymphocytes (%) (Auto) 35.6, Monocytes (%) (Auto) 5.5, Eosinophils (%) (Auto) 3.2H, Basophils (%) (Auto) 0.7, Sodium Level 136, Potassium Level 3.8, Chloride Level 100, Carbon Dioxide Level 28, Anion Gap 8, Blood Urea Nitrogen 13, Creatinine 1.2, Estimat Glomerular Filtration Rate 54.9, Glucose Level 211#H, Uric Acid 5.4, Calcium Level 9.4, Phosphorus Level 4.2, Magnesium Level 1.8, Iron Level 79, Total Iron Binding Capacity 314, Percent Iron Saturation 25, Unsaturated Iron Binding 235, Ferritin 262, Total Bilirubin 0.8, Gamma Glutamyl Transpeptidase 39, Aspartate Amino Transf (AST/SGOT) 35, Alanine Aminotransferase (ALT/SGPT) 39, Alkaline Phosphatase 67, C-Reactive Protein, Quantitative 0.5, Pro-B-Type Natriuretic Peptide 13, Total Protein 7.3, Albumin 4.0, Globulin 3.3, Albumin/Globulin Ratio 1.2, Triglycerides Level 102, Cholesterol Level 104, LDL Cholesterol 48, HDL Cholesterol 40, Cholesterol/HDL Ratio 2.6L, Vitamin B12 Level 689, Folate 38.3, Thyroid Stimulating Hormone (TSH) 2.961 04/28/20 05:06: POC Whole Blood Glucose 220H 04/28/20 12:18: POC Whole Blood Glucose 200H Height (Feet): 6 Height (Inches): 1.00 Weight (Pounds): 229 General Appearance: no apparent distress Neck: normal alignment Cardiovascular: normal rate Respiratory/Chest: lungs clear Abdomen: normal bowel sounds Edema: 1+ Arm (L), 1+ Arm (R), 1+ Leg (L), 1+ Leg (R), 1+ Pedal (L), 1+ Pedal (R), 1+ Generalized Objective Current Medications Medications (Trade) Dose Ordered Sig/Kassie Route PRN Reason Start Time Stop Time Status Last Admin Dose Admin Acetaminophen (Tylenol) 650 mg Q6H PRN ORAL MILD PAIN 04/26/20 23:45 05/26/20 23:44 04/27/20 01:48 Acetaminophen (Tylenol) 650 mg Q6H PRN ORAL Temp >100.5 04/26/20 23:45 05/26/20 23:44 Acetaminophen/ Hydrocodone Bitart ([place] 5/325) 1 tab Q6H PRN ORAL Moderate pain 04/26/20 23:45 05/03/20 23:44 Aspirin (ASA) 81 mg DAILY ORAL 04/28/20 09:00 06/12/20 08:59 04/28/20 08:48 Atorvastatin Calcium (Lipitor) 40 mg BEDTIME ORAL 04/27/20 21:00 07/26/20 20:59 04/27/20 21:25 Dextrose (Dextrose 50%) 25 ml Q30M PRN IV Hypoglycemia 04/27/20 10:00 07/26/20 09:59 Dextrose (Dextrose 50%) 50 ml Q30M PRN IV Hypoglycemia 04/27/20 10:00 07/26/20 09:59 Enoxaparin Sodium (Lovenox) 40 mg DAILY SUBQ 04/27/20 09:00 07/26/20 08:59 04/28/20 08:48 Furosemide (Lasix) 40 mg DAILY ORAL 04/28/20 09:00 05/28/20 08:59 04/28/20 08:50 Gabapentin (Neurontin) 800 mg TID ORAL 04/28/20 13:30 05/28/20 13:29 Insulin Aspart (NovoLOG Mix 70/ 30) 80 units PRE BFAST AND DINNER SUBQ 04/27/20 16:30 07/26/20 16:29 04/28/20 06:13 Insulin Aspart (NovoLOG) BEFORE MEALS AND HS SUBQ 04/27/20 11:30 07/26/20 11:29 04/28/20 12:36 Losartan Potassium (Cozaar) 100 mg DAILY ORAL 04/28/20 09:00 05/28/20 08:59 04/28/20 08:50 Pantoprazole (Protonix) 40 mg DAILY ORAL 04/27/20 09:00 05/27/20 08:59 04/28/20 08:48 Assessment/Plan Problem List: (1) Delirium ICD Codes: R41.0 - Disorientation, unspecified SNOMED: 3725963 (2) Hyperglycemia ICD Codes: R73.9 - Hyperglycemia, unspecified SNOMED: 38456196 (3) Diabetes ICD Codes: E11.9 - Type 2 diabetes mellitus without complications SNOMED: 71958076 (4) Morbid obesity ICD Codes: E66.01 - Morbid (severe) obesity due to excess calories SNOMED: 280215230 Assessment/Plan: continue insulin 70/30 80 units ac B / D / continue insulin sliding scale ac / hs hypoglycemia protocol in order Sixto Gibson MD Apr 28, 2020 13:55
--- NOTE | 2020-04-28 14:52 | Cardiology Report ---
APPROVED REPORT EKG Measurement Heart [id number] <Conclusion> Normal sinus rhythm Normal ECG
[2020-04-28 16:00] VITALS: BP 116/61
[2020-04-28 20:00] VITALS: BP 121/69
[2020-04-28] MEDS: Atorvastatin 20mg tab ORAL SCH (21:12)
--- NOTE | 2020-04-28 22:32 | Cardiology Progress Note ---
Assessment/Plan Assessment/Plan 1. Presyncope/syncope due to volume loss as the patient has a great deal of glycosuria. AMI is ruled out. 2. History of hypertension. 3. History of diabetes mellitus, uncontrolled. 4. Obesity. 5. Diabetic neuropathy. Subjective Subjective No cardiac events is reported. Objective Last 24 Hour Vital Signs Date Time Temp Pulse Resp B/P (MAP) Pulse Ox O2 Delivery O2 Flow Rate FiO2 04/28/20 21:00 Room Air 04/28/20 20:10 110 04/28/20 20:05 84 04/28/20 20:00 86 04/28/20 20:00 98.2 86 16 121/69 (86) 95 04/28/20 16:00 97.8 88 16 116/61 (79) 98 04/28/20 12:00 98.0 83 18 121/67 (85) 94 04/28/20 09:00 Room Air 04/28/20 08:50 137/89 04/28/20 08:10 134 04/28/20 08:05 98 04/28/20 08:00 98.3 102 21 123/80 (94) 96 04/28/20 08:00 102 04/28/20 04:00 98.0 87 16 114/63 (80) 96 04/28/20 00:10 110 04/28/20 00:05 87 04/28/20 00:00 85 04/28/20 00:00 97.9 85 18 113/65 (81) 96 Intake and Output 04/27/20 04/28/20 19:00 07:00 Intake Total 600 ml 480 ml Balance 600 ml 480 ml Intake Oral 600 ml 480 ml # Voids 3 1 2D Echo: Normal LVEF, Grade I LVDD, RVSP 10 mmHg Laboratory Tests Test 04/28/20 05:00 04/28/20 05:06 04/28/20 12:18 04/28/20 21:10 White Blood Count 8.3 K/UL (4.8-10.8) Red Blood Count 4.33 M/UL (4.20-5.40) Hemoglobin 13.1 G/DL (12.0-16.0) Hematocrit 37.1 % (37.0-47.0) Mean Corpuscular Volume 86 FL (80-99) Mean Corpuscular Hemoglobin 30.2 PG (27.0-31.0) Mean Corpuscular Hemoglobin Concent 35.2 G/DL (32.0-36.0) Red Cell Distribution Width 12.0 % (11.6-14.8) Platelet Count 281 K/UL (150-450) Mean Platelet Volume 7.4 FL (6.5-10.1) Neutrophils (%) (Auto) 55.0 % (45.0-75.0) Lymphocytes (%) (Auto) 35.6 % (20.0-45.0) Monocytes (%) (Auto) 5.5 % (1.0-10.0) Eosinophils (%) (Auto) 3.2 % (0.0-3.0) H Basophils (%) (Auto) 0.7 % (0.0-2.0) Sodium Level 136 MMOL/L (136-145) Potassium Level 3.8 MMOL/L (3.5-5.1) Chloride Level 100 MMOL/L (98-107) Carbon Dioxide Level 28 MMOL/L (21-32) Anion Gap 8 mmol/L (5-15) Blood Urea Nitrogen 13 mg/dL (7-18) Creatinine 1.2 MG/DL (0.55-1.30) Estimat Glomerular Filtration Rate 54.9 mL/min (>60) Glucose Level 211 MG/DL (74-106) #H Uric Acid 5.4 MG/DL (2.6-7.2) Calcium Level 9.4 MG/DL (8.5-10.1) Phosphorus Level 4.2 MG/DL (2.5-4.9) Magnesium Level 1.8 MG/DL (1.8-2.4) Iron Level 79 ug/dL (50-175) Total Iron Binding Capacity 314 ug/dL (250-450) Percent Iron Saturation 25 % (15-50) Unsaturated Iron Binding 235 ug/dL (112-346) Ferritin 262 NG/ML (8-388) Total Bilirubin 0.8 MG/DL (0.2-1.0) Gamma Glutamyl Transpeptidase 39 U/L (5-85) Aspartate Amino Transf (AST/SGOT) 35 U/L (15-37) Alanine Aminotransferase (ALT/SGPT) 39 U/L (12-78) Alkaline Phosphatase 67 U/L (46-116) C-Reactive Protein, Quantitative 0.5 mg/dL (0.00-0.90) Pro-B-Type Natriuretic Peptide 13 pg/mL (0-125) Total Protein 7.3 G/DL (6.4-8.2) Albumin 4.0 G/DL (3.4-5.0) Globulin 3.3 g/dL Albumin/Globulin Ratio 1.2 (1.0-2.7) Triglycerides Level 102 MG/DL (30-150) Cholesterol Level 104 MG/DL (< 200) LDL Cholesterol 48 mg/dL (<100) HDL Cholesterol 40 MG/DL (40-60) Cholesterol/HDL Ratio 2.6 (3.3-4.4) L Vitamin B12 Level 689 PG/ML (193-986) Folate 38.3 NG/ML (8.6-58.9) Thyroid Stimulating Hormone (TSH) 2.961 uiU/mL (0.358-3.740) POC Whole Blood Glucose 220 MG/DL (74-106) H 200 MG/DL (74-106) H 208 MG/DL (74-106) H Microbiology Date/Time Source Procedure Growth Status 04/26/20 17:15 Blood Blood Culture - Preliminary NO GROWTH AFTER 24 HOURS Resulted 04/26/20 17:15 Blood Blood Culture - Preliminary NO GROWTH AFTER 24 HOURS Resulted Objective HEENT: Atraumatic and normocephalic. Anicteric. Pupils are equal, round, and reactive to light and accommodation. Extraocular muscles intact. NECK: JVP less than 5 cm. No carotid bruit. Carotid upstroke is 2+ bilaterally. CARDIOVASCULAR: Normal S1, S2. Regular rate and rhythm. No murmurs, gallops, or rubs. PMI is at fourth intercostal space in midclavicular line. LUNGS: Clear to auscultation bilaterally. ABDOMEN: Soft, nontender, nondistended. No hepatosplenomegaly. Positive bowel sounds. EXTREMITIES: No evidence of edema, clubbing, or cyanosis. Huber Keys MD Apr 28, 2020 22:31
[2020-04-29 04:00] VITALS: BP 120/75
[2020-04-29] MEDS: NovoLOG Insulin Flexpen SUBQ SCH ×2 (06:07→11:57)
--- NOTE | 2020-04-29 07:00 | General Progress Note ---
Subjective Allergies: Coded Allergies: No Known Allergies (Verified , 06/06/11) All Systems: reviewed and negative except above Subjective events noted glucose values improved Item Value Date Time Bedside Blood Glucose 154 mg/dl H 04/29/20 0608 Bedside Blood Glucose 208 mg/dl H 04/28/20 2113 Bedside Blood Glucose 255 mg/dl H 04/28/20 1701 Bedside Blood Glucose 200 mg/dl H 04/28/20 1236 Bedside Blood Glucose 220 mg/dl H 04/28/20 0613 Objective Last 24 Hour Vital Signs Date Time Temp Pulse Resp B/P (MAP) Pulse Ox O2 Delivery O2 Flow Rate FiO2 04/29/20 04:00 98.0 85 16 120/75 (90) 96 04/28/20 21:00 Room Air 04/28/20 20:10 110 04/28/20 20:05 84 04/28/20 20:00 86 04/28/20 20:00 98.2 86 16 121/69 (86) 95 04/28/20 16:00 97.8 88 16 116/61 (79) 98 04/28/20 12:00 98.0 83 18 121/67 (85) 94 04/28/20 09:00 Room Air 04/28/20 08:50 137/89 04/28/20 08:10 134 04/28/20 08:05 98 04/28/20 08:00 98.3 102 21 123/80 (94) 96 04/28/20 08:00 102 Intake and Output 04/28/20 04/29/20 19:00 07:00 Intake Total 2000 ml 1600 ml Balance 2000 ml 1600 ml Intake Oral 2000 ml 1600 ml # Voids 6 4 # Bowel Movements 2 Laboratory Tests 04/28/20 12:18: POC Whole Blood Glucose 200H 04/28/20 21:10: POC Whole Blood Glucose 208H Height (Feet): 6 Height (Inches): 1.00 Weight (Pounds): 229 General Appearance: no apparent distress Neck: normal alignment Cardiovascular: regular rhythm Respiratory/Chest: lungs clear Abdomen: normal bowel sounds Pelvis: normal external exam Objective Current Medications Medications (Trade) Dose Ordered Sig/Kassie Route PRN Reason Start Time Stop Time Status Last Admin Dose Admin Acetaminophen (Tylenol) 650 mg Q6H PRN ORAL MILD PAIN 04/26/20 23:45 05/26/20 23:44 04/27/20 01:48 Acetaminophen (Tylenol) 650 mg Q6H PRN ORAL Temp >100.5 04/26/20 23:45 05/26/20 23:44 Acetaminophen/ Hydrocodone Bitart ([place] 5/325) 1 tab Q6H PRN ORAL Moderate pain 04/26/20 23:45 05/03/20 23:44 Aspirin (ASA) 81 mg DAILY ORAL 04/28/20 09:00 06/12/20 08:59 04/28/20 08:48 Atorvastatin Calcium (Lipitor) 40 mg BEDTIME ORAL 04/27/20 21:00 07/26/20 20:59 04/28/20 21:12 Dextrose (Dextrose 50%) 25 ml Q30M PRN IV Hypoglycemia 04/27/20 10:00 07/26/20 09:59 Dextrose (Dextrose 50%) 50 ml Q30M PRN IV Hypoglycemia 04/27/20 10:00 07/26/20 09:59 Enoxaparin Sodium (Lovenox) 40 mg DAILY SUBQ 04/27/20 09:00 07/26/20 08:59 04/28/20 08:48 Furosemide (Lasix) 40 mg DAILY ORAL 04/28/20 09:00 05/28/20 08:59 04/28/20 08:50 Gabapentin (Neurontin) 800 mg TID ORAL 04/28/20 13:30 05/28/20 13:29 04/28/20 18:12 Insulin Aspart (NovoLOG Mix 70/ 30) 80 units PRE BFAST AND DINNER SUBQ 04/27/20 16:30 07/26/20 16:29 04/29/20 06:08 Insulin Aspart (NovoLOG) BEFORE MEALS AND HS SUBQ 04/27/20 11:30 07/26/20 11:29 04/29/20 06:07 Losartan Potassium (Cozaar) 100 mg DAILY ORAL 04/28/20 09:00 05/28/20 08:59 04/28/20 08:50 Pantoprazole (Protonix) 40 mg DAILY ORAL 04/27/20 09:00 05/27/20 08:59 04/28/20 08:48 Assessment/Plan Problem List: (1) Delirium ICD Codes: R41.0 - Disorientation, unspecified SNOMED: 8862752 (2) Hyperglycemia ICD Codes: R73.9 - Hyperglycemia, unspecified SNOMED: 30597999 (3) Diabetes ICD Codes: E11.9 - Type 2 diabetes mellitus without complications SNOMED: 71406532 (4) Morbid obesity ICD Codes: E66.01 - Morbid (severe) obesity due to excess calories SNOMED: 660435951 Assessment/Plan: continue insulin 70/30 80 units ac B / D / continue insulin sliding scale ac / hs hypoglycemia protocol in order Sixto Gibson MD Apr 29, 2020 07:00
[2020-04-29] MEDS: Furosemide 40mg tab ORAL SCH (08:30)
[2020-04-29] MEDS: Aspirin Baby 81mg ORAL SCH (08:30)
[2020-04-29] MEDS: Losartan 50mg tab ORAL SCH (08:31)
[2020-04-29] MEDS: Enoxaparin 40mg Inj SUBQ SCH (08:34)
[2020-04-29 09:00] VITALS: BP 108/65
--- NOTE | 2020-04-29 09:17 | General Progress Note ---
Subjective Allergies: Coded Allergies: No Known Allergies (Verified , 06/06/11) Objective Last 24 Hour Vital Signs Date Time Temp Pulse Resp B/P (MAP) Pulse Ox O2 Delivery O2 Flow Rate FiO2 04/29/20 08:31 108/65 04/29/20 04:00 98.0 85 16 120/75 (90) 96 04/28/20 21:00 Room Air 04/28/20 20:10 110 04/28/20 20:05 84 04/28/20 20:00 86 04/28/20 20:00 98.2 86 16 121/69 (86) 95 04/28/20 16:00 97.8 88 16 116/61 (79) 98 04/28/20 12:00 98.0 83 18 121/67 (85) 94 Intake and Output 04/28/20 04/29/20 19:00 07:00 Intake Total 2000 ml 1600 ml Balance 2000 ml 1600 ml Intake Oral 2000 ml 1600 ml # Voids 6 4 # Bowel Movements 2 Laboratory Tests 04/28/20 12:18: POC Whole Blood Glucose 200H 04/28/20 21:10: POC Whole Blood Glucose 208H Height (Feet): 6 Height (Inches): 1.00 Weight (Pounds): 229 Assessment/Plan Assessment/Plan: S: I am better O: No episode of change of mental status last nitght PHYSICAL EXAMINATION:HEAD AND NECK: Atraumatic and normocephalic. CHEST: Clear to auscultation.HEART: S1, S2. Regular rate and rhythm. ABDOMEN: Soft. No organomegaly.MUSCULOSKELETAL: No gross focal motor deficit. NEUROLOGIC: Awake, alert, oriented x3. DIAGNOSTIC AND LABORATORY DATA: Head CT scan, dated April 26, [address] Chest x-ray is negative. Labs, dated April 28, 2020 reviewed ASSESSMENT AND PLAN: 1. Acute metabolic encephalopathy. 2. Hyperosmolar nonketotic acidosis. 3. Uncontrolled diabetes. 4. Hypertension. 5. Osteoarthritis multiple joints. 6. Acute renal failure. 7. Hyponatremia. 8. Hypomagnesemia. Plan: notes from nephro, Endo have been reviewed will optimize insulin dosage Resume Gabapentin and will monitor Kari Ng MD Apr 29, 2020 09:17
--- NOTE | 2020-04-29 10:03 | Pulmonology Progress Note ---
Patsy Sherman UTILITY SYSTEM REPAIRER 04/29/20 1003: Subjective ROS Limited/Unobtainable: No Constitutional: Reports: no symptoms HEENT: Repors: no symptoms Respiratory: Reports: no symptoms Cardiovascular: Reports: no symptoms Allergies: Coded Allergies: No Known Allergies (Verified , 06/06/11) All Systems: reviewed and negative except above Subjective BS better pulse ox stable on RA no signs of resp distress, no SOB, no CP dc plan in progress Objective Last 24 Hour Vital Signs Date Time Temp Pulse Resp B/P (MAP) Pulse Ox O2 Delivery O2 Flow Rate FiO2 04/29/20 09:00 97.6 75 18 108/65 (79) 96 04/29/20 09:00 Room Air 04/29/20 08:31 108/65 04/29/20 04:00 98.0 85 16 120/75 (90) 96 04/28/20 21:00 Room Air 04/28/20 20:10 110 04/28/20 20:05 84 04/28/20 20:00 86 04/28/20 20:00 98.2 86 16 121/69 (86) 95 04/28/20 16:00 97.8 88 16 116/61 (79) 98 04/28/20 12:00 98.0 83 18 121/67 (85) 94 Intake and Output 04/28/20 04/29/20 19:00 07:00 Intake Total 2000 ml 1600 ml Balance 2000 ml 1600 ml Intake Oral 2000 ml 1600 ml # Voids 6 4 # Bowel Movements 2 Objective General Appearance: obese - A/A/O x 4 AA female in NAD Lines, tubes and drains: peripheral HEENT: normocephalic, atraumatic, anicteric, mucous membranes moist, PERRL Neck: supple Respiratory/Chest: lungs clear, no respiratory distress, no accessory muscle use Cardiovascular/Chest: normal peripheral pulses, normal rate - distant heart sounds Abdomen: normal bowel sounds, non tender, soft - obese Extremities: normal range of motion, no calf tenderness, normal capillary refill Skin Exam: normal pigmentation, warm/dry 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 normal, no motor/sensory deficits, alert, oriented x 3, responsive Musculoskeletal: normal muscle bulk Microbiology Date/Time Source Procedure Growth Status 04/26/20 17:15 Blood Blood Culture - Preliminary NO GROWTH AFTER 48 HOURS Resulted 04/26/20 17:15 Blood Blood Culture - Preliminary NO GROWTH AFTER 48 HOURS Resulted Laboratory Tests 04/28/20 12:18: POC Whole Blood Glucose 200H 04/28/20 21:10: POC Whole Blood Glucose 208H Current Medications Medications (Trade) Dose Ordered Sig/Kassie Route PRN Reason Start Time Stop Time Status Last Admin Dose Admin Acetaminophen (Tylenol) 650 mg Q6H PRN ORAL MILD PAIN 04/26/20 23:45 05/26/20 23:44 04/27/20 01:48 Acetaminophen (Tylenol) 650 mg Q6H PRN ORAL Temp >100.5 04/26/20 23:45 05/26/20 23:44 Acetaminophen/ Hydrocodone Bitart ([place] 5/325) 1 tab Q6H PRN ORAL Moderate pain 04/26/20 23:45 05/03/20 23:44 Aspirin (ASA) 81 mg DAILY ORAL 04/28/20 09:00 06/12/20 08:59 04/29/20 08:30 Atorvastatin Calcium (Lipitor) 40 mg BEDTIME ORAL 04/27/20 21:00 07/26/20 20:59 04/28/20 21:12 Dextrose (Dextrose 50%) 25 ml Q30M PRN IV Hypoglycemia 04/27/20 10:00 07/26/20 09:59 Dextrose (Dextrose 50%) 50 ml Q30M PRN IV Hypoglycemia 04/27/20 10:00 07/26/20 09:59 Enoxaparin Sodium (Lovenox) 40 mg DAILY SUBQ 04/27/20 09:00 07/26/20 08:59 04/29/20 08:34 Furosemide (Lasix) 40 mg DAILY ORAL 04/28/20 09:00 05/28/20 08:59 04/29/20 08:30 Gabapentin (Neurontin) 800 mg TID ORAL 04/28/20 13:30 05/28/20 13:29 04/29/20 08:31 Insulin Aspart (NovoLOG Mix 70/ 30) 80 units PRE BFAST AND DINNER SUBQ 04/27/20 16:30 07/26/20 16:29 04/29/20 06:08 Insulin Aspart (NovoLOG) BEFORE MEALS AND HS SUBQ 04/27/20 11:30 07/26/20 11:29 04/29/20 06:07 Losartan Potassium (Cozaar) 100 mg DAILY ORAL 04/28/20 09:00 05/28/20 08:59 04/29/20 08:31 Pantoprazole (Protonix) 40 mg DAILY ORAL 04/27/20 09:00 05/27/20 08:59 04/29/20 08:33 Assessment/Plan Assessment/Plan ASSESSMENT Diabetes mellitus with hyperglycemia Diabetes mellitus [id number] Acute metabolic encephalopathy , probably related to hyperglycemia -resolved Presyncope/syncope-likely due to abnormal BS Obesity Possible MARQUIS HAIDER due to mild dehydration -resolved Diabetic neuropathy Electrolyte imbalance hypomagnesemia, hypercalcemia, hyponatremia Possible seizure episode HTN HLD PLAN OF CARE MS floor s/p 2 L IVF BS management as per endo recommendations -> with 70/30 insulin bid and SSI prn hypoglycemia protocol in place BS improved HgbA1c -11.2, clearly not at goal diabetic diet and diabetic teaching dietary eval re diabetic diet O2 prn keep sat > 90% recommend PSN as OP ECHO pending orthostatic VS -> no change monitor lytes, renal parameters patient likely had mild dehydration, Ca down and Na up both imbalances likely due to dehydration patient possibly had an episode of seizure as per daughter seizure precautions consider EEG, -> per attending discretion Neurontin initially resumed by attending , then was dc ( pt on high dose 800 mg tid along with Zanaflex, and after taking Neurontin 04/27 was out for a short period of time - per nurse report) ECHO with pEF BP management with current regimen , BP stable restarted on Lasix, monitor volumes, avoid dehydration GI prophylaxis supportive care dc plan per attending thank you for a consult! case discussed and evaluated by supervising physician Gerard Parnell MD 04/29/20 1500: Subjective Allergies: Coded Allergies: No Known Allergies (Verified , 06/06/11) Assessment/Plan Assessment/Plan Patient seen and examined with UTILITY SYSTEM REPAIRER. Agree with above A&P as it reflects our joint deliberations. Patsy Sherman NP Apr 29, 2020 10:03 Gerard Parnell MD Apr 29, 2020 15:00
[2020-04-29 12:02] VITALS: BP 117/72
--- NOTE | 2020-05-01 12:44 | Discharge Summary ---
Discharge Summary Discharge Summary _ DATE OF ADMISSION: 04/26/2020 DATE OF DISCHARGE: 2019 DISCHARGED BY: Dr. Ng REASON FOR ADMISSION: 63 years old female with past medical history of diabetes mellitus type 2, currently insulin-dependent, diabetic neuropathy, pretension, per lipidemia, obesity, presented to emergency department visit due to dizziness and generalized weakness According to patient's daughter patient felt like this since her insulin dose was changed 2 days ago. Patient reported urinary frequency since it started. Patient apparently almost passed out and paramedics were called. Blood sugar was over 300. Upon evaluation in ED vital signs were stable. Troponin negative , EKG revealed sinus rhythm, no acute ischemic changes. Chest x-ray revealed no acute cardiopulmonary pathology. CT of the head revealed no acute intracranial hemorrhage or skull fracture. Laboratory work-up revealed no leukocytosis , stable hemoglobin, hematocrit and platelet count. Sodium 132. BUN 19, creatinine 1.4. Glucose 412. Anion gap 7 , potassium 3.9 , calcium 10.2, magnesium 1.7. Urinalysis revealed +1 protein, +4 glucose, no pyuria and few bacteria. In emergency department magnesium was replaced , patient received 2 L of fluids and admitted for further management. CONSULTANTS: sorter laundry articles Dr. Keys pulmonary Dr. Parnell aging box hand Dr. Gibson [facility]: Patient admitted e to medical surgical floor. Patient received IV fluids . Blood sugar was managed as per aging box hand recommendation with 70/30 insulin twice daily and sliding scale of insulin t before meals and at bedtime. Hypoglycemia protocol was in order. Diabetic diet and diabetic teaching provided. Hemoglobin A1c 11.2 , clearly not at goal. Patient will need further optimization of anti-glycemic regimen as outpatient. Patient was stressed importance of compliance with medications and diet. Echocardiogram demonstrated preserved ejection fraction to the extent visualized. No evidence of wall motion abnormality. Right ventricular systolic pressure of 10. Repeated troponin was negative. EKG revealed no acute ischemic changes. Patient was ruled out for acute myocardial infarction. Etiology of presyncopal episode was most likely due to volume loss and/or a bnormal blood sugar. Hemodynamic status was closely monitored. Blood pressure was managed with the angiotensin receptor anthony and Lasix. Antiplatelet therapy with aspirin continued. Volumes were closely monitored to avoid dehydration. Orthostatic vital signs revealed no evidence of orthostatic changes. Supplemental oxygen was on board as needed to keep pulse oximetry above 90%. Patient was recommended polysomnogram to be done as outpatient for probable obstructive sleep apnea. Renal parameters and electrolytes were closely monitored, electrolytes corrected as needed. Patient initially presented with d mild dehydration :calcium trended down, sodium trended up. Electrolyte imbalances : hypercalcemia and hyponatremia were most likely due to dehydration. Patient initially restarted on Neurontin however it was discontinued , due to sedation it produced. Zanaflex was continued. abiodunn was recommended outpatient follow-up with a primary care provider for further management to avoid oversedation. Supportive care provided. Patient clinically stabilized and was ready for discharge FINAL DIAGNOSES: Acute metabolic encephalopathy probably related to hyperglycemia resolved Hyperosmolar nonketotic acidosis Diabetes mellitus [id number] Obesity Presyncope/syncope due to volume loss and /or abnormal blood sugar HAIDER due to mild dehydration -resolved Possible obstructive sleep apnea Diabetic neuropathy Electrolyte imbalance Hypertension Osteoarthritis, multiply joints Hyperlipidemia DISCHARGE MEDICATIONS: See Medication Reconciliation list. DISCHARGE INSTRUCTIONS: Patient was discharged home. Follow-up with a primary care provider in 1 to 2 weeks. Patsy Sherman NP May 01, 2020 12:44
== END 2020-04-29 14:10 | disposition home or self-care (01) | DRG 637 ==
LOC: EMR 17:01 → 3E 18:11 → EDBEDREQ 21:31
DX: E11.65 Type 2 diabetes mellitus with hyperglycemia (principal); E11.00 Type 2 diabetes mellitus with hyperosmolarity without nonketotic hyperglycemic-hyperosmolar coma (NKHHC); G93.41 Metabolic encephalopathy; N17.9 Acute kidney failure, unspecified; E87.1 Hypo-osmolality and hyponatremia; E66.9 Obesity, unspecified; E66.01 Morbid (severe) obesity due to excess calories; E11.42 Type 2 diabetes mellitus with diabetic polyneuropathy; E83.42 Hypomagnesemia; E83.52 Hypercalcemia; K21.9 Gastro-esophageal reflux disease without esophagitis; Z79.4 Long term (current) use of insulin; M15.9 Polyosteoarthritis, unspecified; I10 Essential (primary) hypertension; R55 Syncope and collapse; E86.0 Dehydration; G47.33 Obstructive sleep apnea (adult) (pediatric)
CPT/HCPCS: 36415; 70450; 71045; 80048; 80053; 80061; 81003; 82009; 82607; 82728; 82746; 82962; 82977; 83036; 83540; 83550; 83605; 83690; 83735; 83880; 84100; 84443; 84484; 84550; 85025; 86140; 87040; 93005; 93306; 96361; 96374; 99285; J1815; J7030; S5561